=== PATIENT | female | born 1950 | race Caucasian/White ===

== ENCOUNTER 2017-03-01 16:02 | Emergency (ER) | payer OTHER ==
[~2017-03-01] VITALS: Ht 165.1 cm; Wt 81.7 kg
[~2017-03-01 16:02] MED LIST: ALBUAER2 INH; ATEN50TA PO; CYM60 PO; FLUO20CA35 PO; FLUT0.15 NAE; FLUT1INH INH; IBUP-103 PO; IPRASOL4 INH; MISCCAP80 PO; OMEG10007 PO; OXGN; TIOTCAP INH
[2017-03-01 16:04] VITALS: TEMP 36.6; Ht 165.1 cm; Wt 81.7 kg
[2017-03-01] MEDS ORDERED: HYDROCODONE/ACETAMOPHEN 5/325MG TAB PO STA (16:24)
[2017-03-01] MEDS ORDERED: LIDODERM (LIDOCAINE) PATCH 5% TD STA (16:24)
[2017-03-01] MEDS ORDERED: DIAZEPAM 5MG TAB PO ONE (16:30)
[2017-03-01] MEDS ORDERED: SPRIN/30 INH (16:47)
[2017-03-01] MEDS ORDERED: AMOX1TAB43 PO (16:47)
[2017-03-01] MEDS ORDERED: NYSS/ PO (16:47)
[2017-03-01] MEDS ORDERED: CLIN1GEL5 TOP (16:47)
[2017-03-01] MEDS ORDERED: LRS20 PO (16:47)
[2017-03-01] MEDS ORDERED: CYM60 PO (16:47)
[2017-03-01] MEDS ORDERED: ATEN50TA21 PO (16:47)
[2017-03-01] MEDS ORDERED: PROAIR INH (16:47)
[2017-03-01] MEDS ORDERED: ALBINS/ NEB (16:47)
[2017-03-01] MEDS ORDERED: PRED20TA PO (16:47)
[2017-03-01] MEDS ORDERED: CLOB1SHA TOP (16:47)
[2017-03-01] MEDS ORDERED: FLNIN/ NAE (16:47)
[2017-03-01] MEDS ORDERED: CALCTAB7 PO (16:49)
[2017-03-01] MEDS ORDERED: OMEP20CA9 PO (16:49)
[2017-03-01] MEDS ORDERED: CELE1CAP28 PO (16:52)
--- NOTE | 2017-03-01 17:18 | DIAGNOSTIC IMAGING REPORT ---
CT OF THE CERVICAL SPINE CLINICAL HISTORY: Neck pain status post trauma COMPARISON STUDY: No previous studies for comparison. CT DOSE: TECHNIQUE: CT scan of the cervical spine was performed from the skull base to the thoracic inlet. Images are reviewed in the axial, sagittal, and coronal planes. IV contrast was not administered for this examination. A dose lowering technique was utilized adhering to the principles of ALARA. FINDINGS: The visualized portions of the lung apices reveal no evidence of pneumothorax. There is pulmonary emphysema The prevertebral soft tissues are normal. No fractures or subluxations are visualized. There is a developmentally incomplete posterior C1 arch There are multilevel degenerative changes, most pronounced the C4-5 and C5-6 levels. IMPRESSION: No evidence of acute fracture or traumatic subluxation. Electronically signed by: Tomasz Ledesma M.D. 03/01/2017 5:17 PM Dictated Date/Time: 03/01/2017 5:15 PM
--- NOTE | 2017-03-01 17:18 | DIAGNOSTIC IMAGING REPORT ---
CT HEAD WITHOUT CONTRAST (CT) CLINICAL HISTORY: Headache. Closed head injury. COMPARISON STUDY: No previous studies for comparison. TECHNIQUE: Axial CT of the brain is performed from the vertex to the skull base. IV contrast was not administered for this examination. A dose lowering technique was utilized adhering to the principles of ALARA. CT DOSE: 1897.31 mGy.cm FINDINGS: No intra or extra-axial mass lesions are visualized. There is no CT evidence of acute cortical infarction. There is no evidence of midline shift. There is no acute hemorrhage. No calvarial fractures are visualized. There are minor white matter hypodensities likely on a small vessel basis. There is no evidence of pathologic ventricular dilatation. There is no evidence of acute sinusitis IMPRESSION: No acute intracranial findings Electronically signed by: Tomasz Ledesma M.D. 03/01/2017 5:15 PM Dictated Date/Time: 03/01/2017 5:14 PM
--- NOTE | 2017-03-01 17:23 | DIAGNOSTIC IMAGING REPORT ---
CT THORACIC SPINE WITHOUT CT DOSE: CLINICAL HISTORY: Thoracic spine pain status post trauma TECHNIQUE: Helical images were acquired in the transverse plane. Sagittal and coronal reformatted images were acquired. A dose lowering technique was utilized adhering to the principles of ALARA. COMPARISON STUDY: CT angiography of the chest dated 08/08/2015 FINDINGS: There is pulmonary emphysema. No paraspinal hematomas are visualized. No fractures or subluxations are visualized. There is a small T7-8 disc osteophyte complex. IMPRESSION: No fractures or traumatic subluxations identified. Electronically signed by: Tomasz Ledesma M.D. 03/01/2017 5:22 PM Dictated Date/Time: 03/01/2017 5:17 PM
--- NOTE | 2017-03-01 18:02 | DIAGNOSTIC IMAGING REPORT ---
CHEST 2 VIEWS ROUTINE CLINICAL HISTORY: pain, trauma COMPARISON STUDY: 08/08/2015 FINDINGS: The cardiac and mediastinal contours are normal. There is no evidence of focal pulmonary consolidation. There is no evidence of failure. No pleural effusions are visualized.[ There is a right basilar atelectasis/scarring. No pneumothorax is visualized. IMPRESSION: No active disease in the chest. Electronically signed by: Tomasz Ledesma M.D. 03/01/2017 6:00 PM Dictated Date/Time: 03/01/2017 6:00 PM
--- NOTE | 2017-03-01 18:03 | DIAGNOSTIC IMAGING REPORT ---
PELVIS 1 OR 2 VIEW ROUTINE CLINICAL HISTORY: Pelvic pain status post trauma COMPARISON STUDY: No previous studies for comparison. FINDINGS: No fractures or dislocations are visualized. Multiple pelvic basin calcifications, likely represent phleboliths. There is no SI joint diastases. There is no symphysis diastases. There is a small right peritrochanteric calcification. This is likely chronic. IMPRESSION: No acute fractures or dislocations identified. Electronically signed by: Tomasz Ledesma M.D. 03/01/2017 6:01 PM Dictated Date/Time: 03/01/2017 6:01 PM
[2017-03-01] MEDS ORDERED: METHOCARBAMOL 500 MG TAB PO STA (18:42)
--- NOTE | 2017-03-01 18:42 | EMERGENCY ROOM VISIT NOTE ---
History Report prepared by Chauncey: Kemar Modi Under the Supervision of: Dr. Lena Wilcox D.O. First contact with patient: 16:10 Chief Complaint: PAIN (GENERALIZED) Stated Complaint: SEVERE NECK/HEAD/BACK/HIP PAIN History of Present Illness The patient is a 66 year old female who presents to the Emergency Room with complaints of worsening generalized pain that started a week ago. She rates her pain as an 8/10 in severity. The patient states that she was trying to kill a snake a couple weeks ago when she suddenly fell backwards and landed on her back and head. She denies any syncopal episode and reports that she felt fine following the incident until about a week ago. The patient states that she woke up and felt pain in her shoulders bilaterally, neck, base of posterior head, and back causing her to not be able to move. She also states that there has been pain around her left ear that radiates to her jaw and right hip pain whenever she walks. She states that the pain is worsened with movement and turning her head and admits that the pain radiates to her epigastric region. She states she visited her Chiropractor this week for adjustment and visited Dr. Chen for an xray of her neck, but states they both thought it was muscular pain.The patient states that she was given a muscle relaxer for her pain last night, but denies any relief of symptoms. She reports that she is not able to sleep. The patient states that she has been experiencing inflammation to her shoulders for a while and states that she visited her doctor who said it may be a mass or lung expansion. She admits to a history of COPD, arthritis, and calcium deposits in her knee. The patient states that she takes Tramadol, but admits this does not help, and Cymbalta for her depression. The patient denies any shortness of breath, nausea, vomiting, urinary symptoms, bowel movement issues, and tingling sensations. Source of History: patient Onset: a week ago Position: head, neck, shoulder (bilateral), back Symptom Intensity: 8/10 Timing: worsening Modifying Factors (Worsening): movement, other (turning head) Associated Symptoms: + neck pain, + abdominal pain, + back pain, No SOB, No nausea, No vomiting, No urinary symptoms Review of Systems See HPI for pertinent positives & negatives. A total of 10 systems reviewed and were otherwise negative. Past Medical & Surgical Medical Problems: (1) COPD (chronic obstructive pulmonary disease) (2) Depressive disorder (3) Fibromyalgia (4) History of tobacco use (5) Hyperlipidemia (6) Hypertension (7) Lumbar spondylosis (8) Nocturnal hypoxemia (9) Ovarian cyst Surgical Problems: (1) H/O abdominoplasty (2) H/O reduction mammoplasty (3) H/o right knee cyst removal Family History Asthma MOTHER BROTHER FH: CAD (coronary artery disease) MOTHER ([place] age 70) BROTHER ([place] age 44) FH: cerebral aneurysm FATHER FH: suicide BROTHER (age 38) Social History Smoking Status: Former Smoker Drug Use: none Marital Status: in relationship Occupation Status: disabled Current/Historical Medications Scheduled Amoxicillin & Pot Clavulanate (Amoxicillin/Clavulanate P), 1 TAB PO Q12 Atenolol & Chlorthalidone (Tenoretic 50MG/25MG), 0.5 TAB PO DAILY Calcium Carbonate-Vitamin D W/ (Caltrate 600 Plus), 1 TAB PO DAILY Duloxetine HCl (Duloxetine HCl), 60 MG PO DAILY Fluticasone Furoate-Vilanterol (Breo Ellipta), 1 DOSE INH QAM Fluticasone Propionate (Fluticasone Propionate), 2 SPRAYS CHRIS DAILY Home O2 Therapy (Oxygen), 2 LITERS NA HS Methocarbamol (Robaxin), 1 TAB PO TID Nystatin (Nystatin Suspension), 5 ML PO QID Omeprazole (Prilosec), 20 MG PO DAILY Prednisone (Prednisone), 20 MG PO PRN UD Tiotropium Chandler (Spiriva Handihaler), 1 CAP INH DAILY Scheduled PRN Albuterol Sulf (Proventil 0.083% 2.5MG/3ML), 1 VIAL NEB Q4 PRN for SOB/Wheezing Baclofen (Baclofen), 20 MG PO TID PRN for Muscle Spasms Celecoxib (Celecoxib), 200 MG PO DAILY PRN for Pain Clindamycin Phosphate (Topical (Clindamycin Phosphate), 1 APPLN TOP QPM PRN for IRRITATION Clobetasol Propionate (Clobetasol Propionate), 1 APPLN TOP 3XWK PRN for IRRITATION Hydrocodone/Acetaminophen 5MG/325MG (Cornish 5MG/325MG), 1 TABLET PO Q6 PRN for Pain [Proair], 2 PUFF INH Q4 PRN for SOB/Wheezing Allergies Coded Allergies: Ciprofloxacin (Verified Adverse Reaction, Severe, GI SYMPTOMS, 03/01/17) Physical Exam Vital Signs Date Time Temp Pulse Resp B/P (MAP) Pulse Ox O2 Delivery O2 Flow Rate FiO2 03/01/17 20:20 86 16 112/78 93 03/01/17 18:05 63 108/72 92 Room Air 03/01/17 16:04 36.6 76 18 113/81 96 Room Air Physical Exam GENERAL: alert, well appearing, well nourished, no distress, non-toxic EYE EXAM: normal conjunctiva, PERRL and EOM's grossly intact OROPHARYNX: no exudate, no erythema, lips, buccal mucosa, and tongue normal and mucous membranes are moist NECK: supple, no nuchal rigidity, no adenopathy, non-tender LUNGS: decreased. Clear to auscultation. Normal chest wall mechanics HEART: no murmurs, S1 normal and S2 normal ABDOMEN: abdomen soft, non-tender, normo-active bowel sounds, no masses, no rebound or guarding. BACK: Back is symmetrical on inspection and there is no deformity, midline tenderness over thoracic spine, no CVA tenderness. increased hypertonicity to left paraspinal muscles in neck and left trapezius. No evidence of trauma SKIN: no rashes and no bruising UPPER EXTREMITIES: upper extremities are grossly normal. LOWER EXTREMITIES: No pitting edema. No reproducible tenderness at hips. NEURO EXAM: Normal sensorium, cranial nerves II-XII grossly intact, normal speech, no gross weakness of arms, no gross weakness of legs. Gross sensation intact. Normal stead gait. Able to ambulate. Medical Decision & Procedures ER Provider Diagnostic Interpretation: Radiology results have been interpreted by the radiologist and reviewed by me. CT THORACIC SPINE WITHOUT CT DOSE: CLINICAL HISTORY: Thoracic spine pain status post trauma TECHNIQUE: Helical images were acquired in the transverse plane. Sagittal and coronal reformatted images were acquired. A dose lowering technique was utilized adhering to the principles of ALARA. COMPARISON STUDY: CT angiography of the chest dated 08/08/2015 FINDINGS: There is pulmonary emphysema. No paraspinal hematomas are visualized. No fractures or subluxations are visualized. There is a small T7-8 disc osteophyte complex. IMPRESSION: No fractures or traumatic subluxations identified. Electronically signed by: Tomasz Ledesma M.D. 03/01/2017 5:22 PM Dictated Date/Time: 03/01/2017 5:[address] HEAD WITHOUT CONTRAST (CT) CLINICAL HISTORY: Headache. Closed head injury. COMPARISON STUDY: No previous studies for comparison. TECHNIQUE: Axial CT of the brain is performed from the vertex to the skull base. IV contrast was not administered for this examination. A dose lowering technique was utilized adhering to the principles of ALARA. CT DOSE: 1897.31 mGy.cm FINDINGS: No intra or extra-axial mass lesions are visualized. There is no CT evidence of acute cortical infarction. There is no evidence of midline shift. There is no acute hemorrhage. No calvarial fractures are visualized. There are minor white matter hypodensities likely on a small vessel basis. There is no evidence of pathologic ventricular dilatation. There is no evidence of acute sinusitis IMPRESSION: No acute intracranial findings Electronically signed by: Tomasz Ledesma M.D. 03/01/2017 5:15 PM Dictated Date/Time: 03/01/2017 5:[address] OF THE CERVICAL SPINE CLINICAL HISTORY: Neck pain status post trauma COMPARISON STUDY: No previous studies for comparison. CT DOSE: TECHNIQUE: CT scan of the cervical spine was performed from the skull base to the thoracic inlet. Images are reviewed in the axial, sagittal, and coronal planes. IV contrast was not administered for this examination. A dose lowering technique was utilized adhering to the principles of ALARA. FINDINGS: The visualized portions of the lung apices reveal no evidence of pneumothorax. There is pulmonary emphysema The prevertebral soft tissues are normal. No fractures or subluxations are visualized. There is a developmentally incomplete posterior C1 arch There are multilevel degenerative changes, most pronounced the C4-5 and C5-6 levels. IMPRESSION: No evidence of acute fracture or traumatic subluxation. Electronically signed by: Tomasz Ledesma M.D. 03/01/2017 5:17 PM Dictated Date/Time: 03/01/2017 5:15 PM CHEST 2 VIEWS ROUTINE CLINICAL HISTORY: pain, trauma COMPARISON STUDY: 08/08/2015 FINDINGS: The cardiac and mediastinal contours are normal. There is no evidence of focal pulmonary consolidation. There is no evidence of failure. No pleural effusions are visualized.[ There is a right basilar atelectasis/scarring. No pneumothorax is visualized. IMPRESSION: No active disease in the chest. Electronically signed by: Tomasz Ledesma M.D. 03/01/2017 6:00 PM Dictated Date/Time: 03/01/2017 6:00 PM PELVIS 1 OR 2 VIEW ROUTINE CLINICAL HISTORY: Pelvic pain status post trauma COMPARISON STUDY: No previous studies for comparison. FINDINGS: No fractures or dislocations are visualized. Multiple pelvic basin calcifications, likely represent phleboliths. There is no SI joint diastases. There is no symphysis diastases. There is a small right peritrochanteric calcification. This is likely chronic. IMPRESSION: No acute fractures or dislocations identified. Electronically signed by: Tomasz Ledesma M.D. 03/01/2017 6:01 PM Dictated Date/Time: 03/01/2017 6:01 PM Laboratory Results 03/01/17 19:15 Red Blood Count 4.36, Mean Corpuscular Volume 90.8, Mean Corpuscular Hemoglobin 31.2, Mean Corpuscular Hemoglobin Concent 34.3, Mean Platelet Volume 9.1, Neutrophils (%) (Auto) 75.2, Lymphocytes (%) (Auto) 11.0, Monocytes (%) (Auto) 12.4, Eosinophils (%) (Auto) 1.1, Basophils (%) (Auto) 0.3, Neutrophils # (Auto ) 4.59, Lymphocytes # (Auto) 0.67, Monocytes # (Auto) 0.76, Eosinophils # (Auto ) 0.07, Basophils # (Auto) 0.02 03/01/17 19:15 Test 03/01/17 19:15 03/01/17 19:25 White Blood Count 6.11 K/uL (4.8-10.8) Red Blood Count 4.36 M/uL (4.2-5.4) Hemoglobin 13.6 g/dL (12.0-16.0) Hematocrit 39.6 % (37-47) Mean Corpuscular Volume 90.8 fL (80-100) Mean Corpuscular Hemoglobin 31.2 pg (25-34) Mean Corpuscular Hemoglobin Concent 34.3 g/dl (32-36) Platelet Count 291 K/uL (130-400) Mean Platelet Volume 9.1 fL (7.4-10.4) Neutrophils (%) (Auto) 75.2 % Lymphocytes (%) (Auto) 11.0 % Monocytes (%) (Auto) 12.4 % Eosinophils (%) (Auto) 1.1 % Basophils (%) (Auto) 0.3 % Neutrophils # (Auto) 4.59 K/uL (1.4-6.5) Lymphocytes # (Auto) 0.67 K/uL (1.2-3.4) Monocytes # (Auto) 0.76 K/uL (0.11-0.59) Eosinophils # (Auto) 0.07 K/uL (0-0.5) Basophils # (Auto) 0.02 K/uL (0-0.2) RDW Standard Deviation 41.4 fL (36.4-46.3) RDW Coefficient of Variation 12.4 % (11.5-14.5) Immature Granulocyte % (Auto) 0.0 % Immature Granulocyte # (Auto) 0.00 K/uL (0.00-0.02) Anion Gap 6.0 mmol/L (3-11) Est Creatinine Clear Calc Drug Dose 88.4 ml/min Estimated GFR () 106.9 Estimated GFR (Non- 92.2 BUN/Creatinine Ratio 9.0 (10-20) Calcium Level 9.5 mg/dl (8.5-10.1) Total Bilirubin 0.7 mg/dl (0.2-1) Aspartate Amino Transf (AST/SGOT) 17 U/L (15-37) Alanine Aminotransferase (ALT/SGPT) 19 U/L (12-78) Alkaline Phosphatase 149 U/L (45-117) Total Protein 7.0 gm/dl (6.4-8.2) Albumin 3.3 gm/dl (3.4-5.0) Globulin 3.7 gm/dl (2.5-4.0) Albumin/Globulin Ratio 0.9 (0.9-2) Lipase 251 U/L (73-393) Bedside Troponin I < 0.030 ng/ml (0-0.045) Laboratory results per my review. Medications Administered Medications (Trade) Dose Ordered Sig/Patricia Route Start Time Stop Time Status Last Admin Dose Admin Lidocaine (Lidoderm Patch 5%) 1 patch NOW STAT TD 03/01/17 16:24 03/01/17 16:27 DC 03/01/17 17:23 1 PATCH Diazepam (Valium Tab) 5 mg NOW ONCE PO 03/01/17 16:30 03/01/17 16:31 DC 03/01/17 16:34 5 MG Acetaminophen/ Hydrocodone Bitart (Cornish 5/325 Tab) 1 tab NOW STAT PO 03/01/17 16:24 03/01/17 16:27 DC 03/01/17 16:35 1 TAB Methocarbamol (Robaxin Tab) 500 mg NOW STAT PO 03/01/17 18:42 03/01/17 18:43 DC 03/01/17 19:12 500 MG Potassium Chloride (Klor-Con M10) 40 meq NOW STAT PO 03/01/17 19:51 03/01/17 19:52 DC 03/01/17 20:10 40 MEQ Laboratory results per my review. ECG Indication: back/shoulder pain Rate (beats per minute): 62 Rhythm: normal sinus Findings: T-wave inversion (lead three), other (normal axis and interval, Flat to slight T wave inversion in V 2 and 3) Comparison ECG Date: 08/08/15 Change: no significant change ED Course 1613: The patient was evaluated in room C04. A complete history and physical exam was performed. 1624: Cornish 5/325 Tab 1 Tab PO, Lidocaine 1 patch TD. 1630: Valium Tab 5 mg PO. 0: Upon reevaluation, the patient is feeling better. 1954: Upon reevaluation, the patient is feeling better. I discussed the findings and the treatment plan with the patient. She verbalizes agreement and understanding. The patient was discharged home. Medical Decision The differential diagnosis includes but is not limited to: Etiologies such as musculoskeletal, disc herniation, fracture, aortic disease, metastatic disease, cord compression, discitis, infection, renal colic, gastrointestinal, acute exacerbation of chronic back pain, sciatica, cauda equina, as well as others were entertained. Medication Reconciliation: I attest that I have personally reviewed the patient' s current medication list. Blood pressure screening: Patient was found to have a slightly elevated blood pressure due to circumstances. I do not believe that the patient requires hypertension monitoring. Pt well appearing despite complaints, initial concern for occult traumatic injury, no evidence of trauma on imaging. Given some radiation anteriorly, labs and ekg also performed. DOubt aaa/dissection, acs, tamponade, effusion, perforation, pancreatitis, cholecystitis, gi bleed, pneumonia, pneumothorax, PUD , renal colic or stone. Pt improved following meds. Sx have been ongoing for several weeks. No improvement with chiropractic manipulation and meds prescribed by PCP. Pt with some improvement here after meds. Discussed f/u, sx to watch/return for, she verbalized understanding and was agreeable with plan. Impression Primary Impression: Back pain Additional Impressions: Neck pain Hypokalemia Scribe Attestation The scribe's documentation has been prepared under my direction and personally reviewed by me in its entirety. I confirm that the note above accurately reflects all work, treatment, procedures, and medical decision making performed by me. Departure Information Dispostion Home / Self-Care Prescriptions Hydrocodone/Acetaminophen 5MG/325MG (Cornish 5MG/325MG) Tab 1 TABLET PO Q6 Y for Pain, #10 TAB Prov: Lena Wilcox, DO 03/01/17 Methocarbamol (ROBAXIN) 500 Mg Tab 1 TAB PO TID for Muscle Spasms, #20 TAB Prov: Lena Wilcox, DO 03/01/17 Referrals Sukhwinder Littlejohn M.D. (PCP) Forms HOME CARE DOCUMENTATION FORM, IMPORTANT VISIT INFORMATION, WORK / SCHOOL INSTRUCTIONS Patient Instructions My [facility] Additional Instructions Please call and follow-up with your family doctor. If you have any worsening pain, develop fevers, vomiting, dizziness, numbness/tingling, chest pain, abdominal pain, or you have any other new or concerning symptoms, please return to the emergency room. Please take the medications as prescribed. Please drink plenty of water. Please do not take them and drive. Please note that your potassium level was slightly low. This is usually a result of needing to eat more foods with potassium such as bananas or OJ. Please have your family doctor recheck your potassium levels next week. Problem Qualifiers Primary Impression: Back pain Back pain location: thoracic back pain Chronicity: acute Back pain laterality: bilateral Qualified Codes: M54.6 - Pain in thoracic spine
[2017-03-01 19:31] LABS: BASO % 0.3 %; BASO ABS # 0.02 K/uL (0-0.2); COMPLETE YES; EOS % 1.1 %; HEMATOCRIT 39.6 % (37-47); LYMPH ABS # 0.67 K/uL (1.2-3.4); MEAN CELL VOLUME 90.8 fL (80-100); MEAN CORPUSCULAR HEMOGLOBIN 31.2 pg (25-34); MEAN CORPUSCULAR HGB CONC 34.3 g/dl (32-36); MEAN PLATELET VOLUME 9.1 fL (7.4-10.4); MONO % 12.4 %; NEUT % 75.2 %; PLATELET COUNT 291 K/uL (130-400); RED BLOOD COUNT 4.36 M/uL (4.2-5.4); WHITE BLOOD COUNT 6.11 K/uL (4.8-10.8)
[2017-03-01 19:49] LABS: CALCIUM 9.5 mg/dl (8.5-10.1); CREATININE 0.67 mg/dl (0.60-1.20); POTASSIUM 2.7 mmol/L (3.5-5.1)
[2017-03-01] MEDS ORDERED: POTASSIUM CHLORIDE 10 MEQ TABCR PO STA (19:51)
[2017-03-01 19:52] LABS: ALB/GLOB RATIO 0.9 (0.9-2)
[2017-03-01] MEDS ORDERED: HYDR-5688 PO (19:56)
[2017-03-01] MEDS ORDERED: METH500T PO (19:56)
[2017-03-01 20:20] VITALS: BP 112/78; PULSE 86; O2SAT 93
[2017-03-20] MEDS ORDERED: VNCS125 PO (12:20)
[2017-03-20] MEDS ORDERED: ATEN50TA PO (12:20)
[2017-03-20] MEDS ORDERED: FAMO20TA9 PO (12:28)
== END 2017-03-01 20:20 | disposition home or self-care (01) ==
LOC: C.EDB 16:02 → C.EDC 20:20
DX: M54.6 Pain in thoracic spine (principal); M54.2 Cervicalgia; E87.6 Hypokalemia; J44.9 Chronic obstructive pulmonary disease, unspecified; M19.90 Unspecified osteoarthritis, unspecified site; F32.9 Major depressive disorder, single episode, unspecified; M79.7 Fibromyalgia; I10 Essential (primary) hypertension; Z87.891 Personal history of nicotine dependence; Z98.890 Other specified postprocedural states; Z82.5 Family history of asthma and other chronic lower respiratory diseases; Z82.49 Family history of ischemic heart disease and other diseases of the circulatory system; Z81.8 Family history of other mental and behavioral disorders; Z79.899 Other long term (current) drug therapy

== ENCOUNTER 2017-03-15 15:43 | Inpatient (IN) | payer OTHER ==
[~2017-03-15] VITALS: Ht 165.1 cm; Wt 83.4 kg
[~2017-03-15 15:43] MED LIST changes: +ALBINS/ NEB; -ALBUAER2 INH; +AMOX1TAB43 PO; -ATEN50TA PO; +ATEN50TA21 PO; +CALCTAB7 PO; +CELE1CAP28 PO; +CLIN1GEL5 TOP; +CLOB1SHA TOP; +FLNIN/ NAE; -FLUO20CA35 PO; -FLUT0.15 NAE; +HYDR-5688 PO; -IBUP-103 PO; -IPRASOL4 INH; +LRS20 PO; -MISCCAP80 PO; +NYSS/ PO; -OMEG10007 PO; +OMEP20CA9 PO; +PRED20TA PO; +PROAIR INH; +SPRIN/30 INH; -TIOTCAP INH
[2017-03-15] MEDS ORDERED: SODIUM CHLORIDE 0.9% 1000ML 1,000 ML IV STA ×2 (16:08→16:51)
--- NOTE | 2017-03-15 16:26 | EMERGENCY ROOM VISIT NOTE ---
History First contact with patient: 15:55 Chief Complaint: ABNORMAL LABS Stated Complaint: ABNORMAL LABS BY BROWN History of Present Illness The patient is a 66 year old female who presents to the Emergency Room with complaints of abnormal laboratory studies. The patient has had diarrhea for 10 days. She states the diarrhea stopped over the last several days. She has also had ongoing low back pain. She was seen here for the back pain. She has also seen the chiropractor which seemed to help her back pain. She states that 2 days ago she was seen at [facility]. She states they called her today and told her to come to the emergency department secondary to abnormal laboratory studies. Her sodium was reportedly 131, potassium 2.6 and creatinine 1.2. The patient states that she does not feel well overall. She reports pain in the low back which is worse in the left side and worse with movement. She was seen in the emergency department last week for the back pain and treated with pain medication. She denies fevers or chills. She denies any pain in her chest, trouble breathing or cough. She denies any abdominal pain, nausea or vomiting. She states the diarrhea has improved slightly. She denies any melena or hematochezia. She denies any urinary symptoms. She denies any loss of bowel or bladder control, saddle anesthesia, numbness, tingling, weakness or pain in the lower extremities Review of Systems A 10 system review of systems was completed with positives and pertinent negatives listed in the HPI. Past Medical/Surgical History Medical Problems: (1) COPD (chronic obstructive pulmonary disease) (2) Depressive disorder (3) Electrolyte abnormality (4) Fibromyalgia (5) History of tobacco use (6) Hyperlipidemia (7) Hypertension (8) Lumbar spondylosis (9) Nocturnal hypoxemia (10) Ovarian cyst (11) Weakness Surgical Problems: (1) H/O abdominoplasty (2) H/O reduction mammoplasty (3) H/o right knee cyst removal Family History Asthma MOTHER BROTHER FH: CAD (coronary artery disease) MOTHER ([place] age 70) BROTHER ([place] age 44) FH: cerebral aneurysm FATHER FH: suicide BROTHER (age 38) Social History Smoking Status: Former Smoker Drug Use: none Marital Status: in relationship Occupation Status: disabled Current/Historical Medications Scheduled Amoxicillin & Pot Clavulanate (Amoxicillin/Clavulanate P), 1 TAB PO Q12 Atenolol & Chlorthalidone (Tenoretic 50MG/25MG), 0.5 TAB PO DAILY Calcium Carbonate-Vitamin D W/ (Caltrate 600 Plus), 1 TAB PO DAILY Duloxetine HCl (Duloxetine HCl), 60 MG PO DAILY Fluticasone Furoate-Vilanterol (Breo Ellipta), 1 DOSE INH QAM Fluticasone Propionate (Fluticasone Propionate), 2 SPRAYS CHRIS DAILY Home O2 Therapy (Oxygen), 2 LITERS NA HS Nystatin (Nystatin Suspension), 5 ML PO QID Omeprazole (Prilosec), 20 MG PO DAILY Prednisone (Prednisone), 20 MG PO PRN UD Tiotropium [place] (Spiriva Handihaler), 1 CAP INH DAILY Scheduled PRN Baclofen (Baclofen), 20 MG PO TID PRN for Muscle Spasms Celecoxib (Celecoxib), 200 MG PO DAILY PRN for Pain Clindamycin Phosphate (Topical (Clindamycin Phosphate), 1 APPLN TOP QPM PRN for IRRITATION Clobetasol Propionate (Clobetasol Propionate), 1 APPLN TOP 3XWK PRN for IRRITATION Hydrocodone/Acetaminophen 5MG/325MG ([place] 5MG/325MG), 1 TABLET PO Q6 PRN for Pain [Proair], 2 PUFF INH Q4 PRN for SOB/Wheezing Physical Exam Vital Signs Date Time Temp Pulse Resp B/P (MAP) Pulse Ox O2 Delivery O2 Flow Rate FiO2 03/15/17 18:09 74 18 115/80 97 Room Air 03/15/17 17:37 70 18 101/61 92 Room Air 76 102/69 73 109/70 03/15/17 17:33 69 18 109/70 96 Room Air 03/15/17 16:35 71 03/15/17 15:50 36.3 76 20 100/72 95 Room Air Physical Exam VITALS: Vitals are noted on the nurse's note and reviewed by myself. Vital signs stable. The patient is afebrile. GENERAL: This is a 66-year-old female, in no acute distress, nondiaphoretic, well-developed well-nourished. SKIN: The skin was without rashes, erythema, edema, or bruising. There is no tenting of the skin. Capillary reflex less than 2 seconds. HEAD: Normocephalic atraumatic. EARS: The external ears are normal in appearance. EYES: Pupils equal round and reactive to light and accommodation. Conjunctivae without injection, sclerae without icterus. Extraocular movements intact. NOSE: Patent, turbinates without inflammation or discharge. MOUTH: Mucous membranes moist. Tongue does not deviate. NECK: Supple without nuchal rigidity. No lymphadenopathy. No thyromegaly. Cervical spine is nontender. No JVD. HEART: Regular rate and rhythm without murmurs gallops or rubs. LUNGS: Clear to auscultation bilaterally without wheezes, rales or rhonchi. No retractions or accessory muscle use. ABDOMEN: Positive bowel sounds x 4. Soft, nontender, without masses or organomegaly. Smith sign negative. Rectal: There is an external, nonbleeding, nonthrombosed hemorrhoid. The stool is brown but trace guaiac positive. MUSCULOSKELETAL: No muscle atrophy, erythema, or edema noted. Full range of motion without joint tenderness in all extremities. Normal gait. Strength 5/5 throughout. NEURO: Patient was alert and oriented to person place and time. Normal sensation to light and sharp touch. Deep tendon reflexes 2+ in the lower extremities bilaterally.. No focal neurological deficits. Medical Decision & Procedures ER Provider Diagnostic Interpretation: CHEST ONE VIEW PORTABLE HISTORY: diarrhea, hypokalemia COMPARISON: Chest 03/01/2017. FINDINGS: The lungs are clear. Cardiac silhouette is normal in size. No pleural effusions. No pneumothorax. IMPRESSION: No acute process. Laboratory Results 03/15/17 16:15 Red Blood Count 3.88, Mean Corpuscular Volume 89.4, Mean Corpuscular Hemoglobin 31.4, Mean Corpuscular Hemoglobin Concent 35.2, Mean Platelet Volume 8.8, Neutrophils (%) (Auto) 83.8, Lymphocytes (%) (Auto) 5.8, Monocytes (%) (Auto) 9.1, Eosinophils (%) (Auto) 0.3, Basophils (%) (Auto) 0.1, Neutrophils # (Auto) 7.21, Lymphocytes # (Auto) 0.50, Monocytes # (Auto) 0.78, Eosinophils # (Auto) 0.03, Basophils # (Auto) 0.01 03/15/17 16:15 Test 03/15/17 16:15 03/15/17 17:20 03/15/17 18:14 White Blood Count 8.61 K/uL (4.8-10.8) Red Blood Count 3.88 M/uL (4.2-5.4) Hemoglobin 12.2 g/dL (12.0-16.0) Hematocrit 34.7 % (37-47) Mean Corpuscular Volume 89.4 fL (80-100) Mean Corpuscular Hemoglobin 31.4 pg (25-34) Mean Corpuscular Hemoglobin Concent 35.2 g/dl (32-36) Platelet Count 356 K/uL (130-400) Mean Platelet Volume 8.8 fL (7.4-10.4) Neutrophils (%) (Auto) 83.8 % Lymphocytes (%) (Auto) 5.8 % Monocytes (%) (Auto) 9.1 % Eosinophils (%) (Auto) 0.3 % Basophils (%) (Auto) 0.1 % Neutrophils # (Auto) 7.21 K/uL (1.4-6.5) Lymphocytes # (Auto) 0.50 K/uL (1.2-3.4) Monocytes # (Auto) 0.78 K/uL (0.11-0.59) Eosinophils # (Auto) 0.03 K/uL (0-0.5) Basophils # (Auto) 0.01 K/uL (0-0.2) RDW Standard Deviation 39.8 fL (36.4-46.3) RDW Coefficient of Variation 12.4 % (11.5-14.5) Immature Granulocyte % (Auto) 0.9 % Immature Granulocyte # (Auto) 0.08 K/uL (0.00-0.02) Anion Gap 7.0 mmol/L (3-11) Estimated GFR () 95.4 Estimated GFR (Non- 82.3 BUN/Creatinine Ratio 14.1 (10-20) Calcium Level 8.8 mg/dl (8.5-10.1) Magnesium Level 1.5 mg/dl (1.8-2.4) Total Bilirubin 0.3 mg/dl (0.2-1) Aspartate Amino Transf (AST/SGOT) 17 U/L (15-37) Alanine Aminotransferase (ALT/SGPT) 16 U/L (12-78) Alkaline Phosphatase 118 U/L (45-117) Total Creatine Kinase 78 U/L (26-192) Troponin I < 0.015 ng/ml (0-0.045) Total Protein 6.3 gm/dl (6.4-8.2) Albumin 2.6 gm/dl (3.4-5.0) Globulin 3.7 gm/dl (2.5-4.0) Albumin/Globulin Ratio 0.7 (0.9-2) Lipase 356 U/L (73-393) Thyroid Stimulating Hormone (TSH) 1.290 uIu/ml (0.300-4.500) Venous Blood pH 7.46 (7.36-7.41) Venous Blood Partial Pressure CO2 52 mmHg (38.0-50.0) Venous Blood Partial Pressure O2 17 mmHg Venous Blood HCO3 37 mmol/L Venous Blood Oxygen Saturation < 60.0 % Venous Blood Base Excess 11.1 mEq/L Urine Color YELLOW Urine Appearance CLEAR (CLEAR) Urine pH 7.0 (4.5-7.5) Urine Specific [place] 1.008 (1.000-1.030) Urine Protein NEG (NEG) Urine Glucose (UA) NEG (NEG) Urine Ketones NEG (NEG) Urine Occult Blood NEG (NEG) Urine Nitrite NEG (NEG) Urine Bilirubin NEG (NEG) Urine Urobilinogen NEG (NEG) Urine Leukocyte Esterase NEG (NEG) Medications Administered Medications (Trade) Dose Ordered Sig/Patricia Route Start Time Stop Time Status Last Admin Dose Admin Sodium Chloride 1,000 ml @ 999 mls/hr Q1H1M STAT IV 03/15/17 16:08 03/15/17 17:08 DC 03/15/17 16:29 999 MLS/HR Potassium Chloride (Kcl 10 Meq / Wtr) 10 meq NOW STAT IV 03/15/17 16:51 03/15/17 16:52 DC 03/15/17 17:16 10 MEQ Magnesium Sulfate (Magnesium Sulfate) 1 gm NOW STAT IV 03/15/17 16:51 03/15/17 16:52 DC 03/15/17 18:20 1 GM Sodium Chloride 1,000 ml @ 999 mls/hr Q1H1M STAT IV 03/15/17 16:51 03/15/17 17:51 DC 03/15/17 18:20 999 MLS/HR Procedure The patient was monitored on a night monitor. They maintained a normal sinus rhythm without ectopy. ECG Indication: weakness Rate (beats per minute): 70 Rhythm: normal sinus Findings: nonspecific-ST abn, no acute ischemic change Change: no significant change ED Course The patient was seen and examined. Previous visits outside studies were reviewed. The patient does not have a fever or leukocytosis. She does have hypokalemia with potassium 2.6. She has hypomagnesemia with magnesium 1.5. Her bicarbonate is 37 and chloride 93. Her creatinine is within normal limits today at 0.76. Troponin is not elevated. CPK is not elevated. Lipase and TSH are within normal limits. Urinalysis is negative for urinary tract infection, hematuria or ketones. Orthostatic vital signs were negative Stool studies were ordered but the patient was not able to provide a stool sample. EKG does not reveal any peaked T waves or other abnormality She was hydrated with IV normal saline solution 2 L She was given one 10 mEq K rider She was given 1 g IV magnesium The patient presents to the emergency department with electrolyte abnormalities. She has hypomagnesemia, hypokalemia and is symptomatic. The patient has also had ongoing low back pain which seems to be musculoskeletal in nature. She has no neurologic deficit on exam or by history. She has no radiation of the pain. Given the patient's symptoms and electrolyte abnormalities, she would benefit from further evaluation and management in the hospital. [facility] the patient. The patient was also seen and examined by who agrees with the assessment and treatment plan. Medical Decision DIFFERENTIAL DIAGNOSIS: Aortic dissection, myocarditis, pericarditis, cervical disc disease, costochondritis, herpes zoster, rib fracture, pleuritis, pneumonia , pulmonary embolus, tension pneumothorax, anxiety disorder, somatoform disorder , choledocholithiasis, status, esophagitis, esophageal spasm, esophageal reflux , esophageal rupture, pancreatitis, peptic ulcer disease, cardiac ischemia, ST elevation [place], acute coronary syndrome, arrhythmia, coronary artery vasospasm. vavular heart disease, coronary artery disease, among others. Medication Reconcilliation Current Medication List: was personally reviewed by me Blood Pressure Screening Patient's blood pressure: Normal blood pressure Blood pressure disposition: Did not require urgent referral Impression Primary Impression: Hypokalemia Additional Impressions: Hypomagnesemia Low back pain Dehydration Departure Information Referrals Sukhwinder Littlejohn M.D. (PCP) Patient Instructions My [facility] Problem Qualifiers
[2017-03-15 16:27] LABS: HEMATOCRIT 34.7 % (37-47); MEAN CELL VOLUME 89.4 fL (80-100); MEAN CORPUSCULAR HEMOGLOBIN 31.4 pg (25-34); MEAN CORPUSCULAR HGB CONC 35.2 g/dl (32-36); MEAN PLATELET VOLUME 8.8 fL (7.4-10.4); PLATELET COUNT 356 K/uL (130-400); RED BLOOD COUNT 3.88 M/uL (4.2-5.4); WHITE BLOOD COUNT 8.61 K/uL (4.8-10.8)
--- NOTE | 2017-03-15 16:41 | DIAGNOSTIC IMAGING REPORT ---
CHEST ONE VIEW PORTABLE HISTORY: diarrhea, hypokalemia COMPARISON: Chest 03/01/2017. FINDINGS: The lungs are clear. Cardiac silhouette is normal in size. No pleural effusions. No pneumothorax. IMPRESSION: No acute process. Electronically signed by: Nish Quinonez M.D. 03/15/2017 4:39 PM Dictated Date/Time: 03/15/2017 4:38 PM
[2017-03-15 16:44] LABS: ALT/SGPT 16 U/L (12-78); BLOOD UREA NITROGEN 11 mg/dl (7-18); BUN/CREATININE RATIO 14.1 (10-20); CALCIUM 8.8 mg/dl (8.5-10.1); CARBON DIOXIDE 37 mmol/L (21-32); CHLORIDE 93 mmol/L (98-107); CREATININE 0.76 mg/dl (0.60-1.20); GLUCOSE 96 mg/dl (70-99); MAGNESIUM 1.5 mg/dl (1.8-2.4); POTASSIUM 2.6 mmol/L (3.5-5.1); SODIUM 137 mmol/L (136-145)
[2017-03-15] MEDS ORDERED: MAGNESIUM SULFATE 1GM / D5W 1 GM BAG IV STA (16:51)
[2017-03-15] MEDS ORDERED: POTASSIUM CHLORIDE 10 MEQ / 100ML WTR IV STA (16:51)
[2017-03-15 16:55] LABS: ALB/GLOB RATIO 0.7 (0.9-2); ALKALINE PHOSPHATASE 118 U/L (45-117); AST/SGOT 17 U/L (15-37)
[2017-03-15 17:15] LABS: BASO % 0.1 %; BASO ABS # 0.01 K/uL (0-0.2); COMPLETE YES; EOS % 0.3 %; IG% 0.9 %; LYMPH % 5.8 %; MONO % 9.1 %; NEUT % 83.8 %
[2017-03-15 17:28] LABS: VEN BLOOD GAS BASE EXCESS 11.1 mEq/L; VENOUS BLOOD GAS PCO2 52 mmHg (38.0-50.0); VENOUS BLOOD GAS PO2 17 mmHg
[2017-03-15 17:29] LABS: VEN BLD GAS O2 SATURATION < 60.0 %
[2017-03-15 18:28] LABS: URINE APPEARANCE CLEAR (CLEAR); URINE BILIRUBIN NEG (NEG); URINE COLOR YELLOW; URINE NITRITE NEG (NEG); URINE SPECIFIC GRAVITY 1.008 (1.000-1.030); UROBILINOGEN NEG (NEG); ZZUR CULT IF INDIC CLEAN CATCH NO
[2017-03-15 18:32] LABS: MANUAL MICROSCOPIC REQUIRED? NO; REVIEW REQ? NO
[2017-03-15] MEDS ORDERED: POTASSIUM CHLORIDE 10 MEQ TABCR PO STA (18:50)
[2017-03-15] MEDS ORDERED: ONDANSETRON INJ 2 MG/ML 2 ML VIAL IV PRN (19:00)
[2017-03-15] MEDS ORDERED: ACETAMINOPHEN 325 MG TAB PO PRN (19:00)
[2017-03-15] MEDS ORDERED: IV FLUIDS COMPLETED PRN (19:00)
[2017-03-15] MEDS ORDERED: ALBUTEROL HFA 8 GM INHALER INH PRN (19:00)
[2017-03-15] MEDS ORDERED: CeleBREX 200 MG CAP PO PRN (19:00)
[2017-03-15] MEDS ORDERED: POLYETHYLENE (MIRALAX) 17 GM PACK PO PRN (19:00)
[2017-03-15] MEDS ORDERED: BACLOFEN TAB 20 MG TAB PO PRN (19:00)
[2017-03-15 19:50] VITALS: BP 110/74; PULSE 70; TEMP 36.4; O2SAT 92
[2017-03-15] MEDS ORDERED: PATIENT'S HEIGHT AND/OR WEIGHT NEEDED SCH (20:00)
[2017-03-15] MEDS ORDERED: MAGNESIUM SULFATE 1GM / D5W 1 GM in PREMIXED IN D5W 100 ML IV ONE (20:30)
[2017-03-15] MEDS: NYSTATIN SUSP 500,000 U/5 ML UDC PO SCH (21:01)
[2017-03-15] MEDS: TIOTROPIUM BROMIDE 5 PUFF/90 MCG INH INH SCH (21:03)
[2017-03-15 21:05] VITALS: BP 110/74; PULSE 74; TEMP 36.4; O2SAT 92; Ht 165.1 cm; Wt 83.4 kg
[2017-03-15] MEDS: HYDROCODONE/ACETAMOPHEN 5/325MG TAB PO PRN (21:17)
--- NOTE | 2017-03-15 22:11 | History and Physical ---
History & Physical Date & Time of Service: Mar 15, 2017 at 22:00 Chief Complaint: Electrolyte Abnormality, Weakness Primary Care Physician: Sukhwinder Littlejohn M.D. History of Present Illness Source: patient Patient is a 66 yo female who presents to the hospital after being called by outpatient clinic that she had abnormal labs and needed to go to the ER. She states she has been dealing with over a week of severe diarrhea, poor oral intake, nausea and abdominal pain which finally started to improve on Thursday. Also unrelated, the patient has had ongoing back pain for which she was recently seen in the ER and given pain medication for. She states that 2 days ago she was seen at an urgent care center and today they called her and told her to come to the emergency department secondary to abnormal laboratory studies. Per records sodium was 131, potassium 2.6 and creatinine 1.2. Patient states that she has felt malaise, weakness all over and just does not feel well. Her back pain is in the lower back and is worse in the left side and worse with movement. Denies and fevers, chills, sweats, SOLITARIO, CP or SOB. She had some abdominal pain and nausea/vomiting but it resolved. Denies melena or hematochezia. Has only had 1 loose BM since Thursday. Past Medical/Surgical History Medical Problems: (1) COPD (chronic obstructive pulmonary disease) Status: Chronic (2) Depressive disorder Status: Chronic (3) Fibromyalgia Status: Chronic (4) History of tobacco use Status: Chronic (5) Hyperlipidemia Status: Chronic (6) Hypertension Status: Chronic (7) Lumbar spondylosis Status: Chronic (8) Nocturnal hypoxemia Status: Chronic (9) Ovarian cyst Status: Chronic Surgical Problems: (1) H/O abdominoplasty Status: Chronic (2) H/O reduction mammoplasty Status: Chronic (3) H/o right knee cyst removal Status: Chronic Family History Asthma MOTHER BROTHER FH: CAD (coronary artery disease) MOTHER ([place] age 70) BROTHER ([place] age 44) FH: cerebral aneurysm FATHER FH: suicide BROTHER (age 38) Social History Smoking Status: Former Smoker Drug Use: none Marital Status: in relationship Occupational Status: disabled Immunizations History of Influenza Vaccine: Yes Influenza Vaccine Date: Jun 11, 2011 History of Tetanus Vaccine?: Yes Tetanus Immunization Date: Aug 10, 2005 History of Pneumococcal: Yes Pneumococcal Date: Jul 25, 2009 History of Hepatitis B Vaccine: No Multi-Drug Resistant Organisms History of MDRO: No Allergies Coded Allergies: Ciprofloxacin (Verified Adverse Reaction, Severe, GI SYMPTOMS, 03/01/17) Home Medications Scheduled Amoxicillin & Pot Clavulanate (Amoxicillin/Clavulanate P), 1 TAB PO Q12 Atenolol & Chlorthalidone (Tenoretic 50MG/25MG), 0.5 TAB PO DAILY Calcium Carbonate-Vitamin D W/ (Caltrate 600 Plus), 1 TAB PO DAILY Duloxetine HCl (Duloxetine HCl), 60 MG PO DAILY Fluticasone Furoate-Vilanterol (Breo Ellipta), 1 DOSE INH QAM Fluticasone Propionate (Fluticasone Propionate), 2 SPRAYS CHRIS DAILY Home O2 Therapy (Oxygen), 2 LITERS NA HS Nystatin (Nystatin Suspension), 5 ML PO QID Omeprazole (Prilosec), 20 MG PO DAILY Prednisone (Prednisone), 20 MG PO PRN UD Tiotropium [place] (Spiriva Handihaler), 1 CAP INH DAILY Scheduled PRN Baclofen (Baclofen), 20 MG PO TID PRN for Muscle Spasms Celecoxib (Celecoxib), 200 MG PO DAILY PRN for Pain Clindamycin Phosphate (Topical (Clindamycin Phosphate), 1 APPLN TOP QPM PRN for IRRITATION Clobetasol Propionate (Clobetasol Propionate), 1 APPLN TOP 3XWK PRN for IRRITATION Hydrocodone/Acetaminophen 5MG/325MG ([place] 5MG/325MG), 1 TABLET PO Q6 PRN for Pain [Proair], 2 PUFF INH Q4 PRN for SOB/Wheezing Review of Systems Constitutional: + weakness, + fatigue, No fever, No chills, No sweats Eyes: No worsening of vision, No eye pain, No discharge, No diplopia ENT: No hearing loss, No nasal symptoms, No sore throat, No dental problems, No trouble swallowing Respiratory: No cough, No shortness of breath, No dyspnea on exertion, No hemoptysis Cardiovascular: No chest pain, No edema, No claudication, No palpitations Abdomen: + pain, + nausea, + diarrhea, No GI bleeding Musculoskeletal: + joint pain, No muscle pain, No swelling Genitourinary - Female: No dysuria, No urinary frequency, No urinary urgency, No urinary incontinence, No urinary retention Neurologic: No memory loss, No paralysis, No numbness/tingling, No vertigo Psychiatric: No depression symptoms, No anxiety, No insomnia, No substance abuse Endocrine: No problem reported Hematologic / Lymphatic: No problem reported Integumentary: No rash, No itch, No bleeding, No problem reported Physical Exam Vital Signs Date Time Temp Pulse Resp B/P (MAP) Pulse Ox O2 Delivery O2 Flow Rate FiO2 03/15/17 21:05 36.4 74 18 110/74 92 Room Air 03/15/17 19:50 36.4 70 18 110/74 (86) 92 Room Air 03/15/17 19:18 69 18 96/61 97 Room Air 03/15/17 18:09 74 18 115/80 97 Room Air 03/15/17 17:37 70 18 101/61 92 Room Air 76 102/69 73 109/70 03/15/17 17:33 69 18 109/70 96 Room Air 03/15/17 16:35 71 03/15/17 15:50 36.3 76 20 100/72 95 Room Air General Appearance: WD/WN, no apparent distress Head: normocephalic, atraumatic Eyes: PERRL, EOMI ENT: hearing grossly normal Neck: supple, no JVD, no carotid bruits, trachea midline Respiratory/Chest: chest non-tender, lungs clear, normal breath sounds, no respiratory distress Cardiovascular: regular rate, rhythm, no edema, no gallop, no JVD, no murmur Abdomen/GI: normal bowel sounds, non tender, soft, no organomegaly Back: + decreased range of motion, + paravertebral tenderness Extremities/Musculoskelatal: no calf tenderness, normal capillary refill, no pedal edema Neurologic/Psych: no motor/sensory deficits, alert, normal mood/affect, oriented x 3 Skin: normal color, warm/dry, no rash Diagnostics Laboratory Results Results Past 24 Hours Test 03/15/17 16:15 03/15/17 17:20 03/15/17 18:14 Range/Units White Blood Count 8.61 4.8-10.8 K/uL Red Blood Count 3.88 4.2-5.4 M/uL Hemoglobin 12.2 12.0-16.0 g/dL Hematocrit 34.7 37-47 % Mean Corpuscular Volume 89.4 80-100 fL Mean Corpuscular Hemoglobin 31.4 25-34 pg Mean Corpuscular Hemoglobin Concent 35.2 32-36 g/dl Platelet Count 356 130-400 K/uL Mean Platelet Volume 8.8 7.4-10.4 fL Neutrophils (%) (Auto) 83.8 % Lymphocytes (%) (Auto) 5.8 % Monocytes (%) (Auto) 9.1 % Eosinophils (%) (Auto) 0.3 % Basophils (%) (Auto) 0.1 % Neutrophils # (Auto) 7.21 1.4-6.5 K/uL Lymphocytes # (Auto) 0.50 1.2-3.4 K/uL Monocytes # (Auto) 0.78 0.11-0.59 K/uL Eosinophils # (Auto) 0.03 0-0.5 K/uL Basophils # (Auto) 0.01 0-0.2 K/uL RDW Standard Deviation 39.8 36.4-46.3 fL RDW Coefficient of Variation 12.4 11.5-14.5 % Immature Granulocyte % (Auto) 0.9 % Immature Granulocyte # (Auto) 0.08 0.00-0.02 K/uL Sodium Level 137 136-145 mmol/L Potassium Level 2.6 3.5-5.1 mmol/L Chloride Level 93 98-107 mmol/L Carbon Dioxide Level 37 21-32 mmol/L Anion Gap 7.0 3-11 mmol/L Blood Urea Nitrogen 11 7-18 mg/dl Creatinine 0.76 0.60-1.20 mg/dl Estimated GFR () 95.4 Estimated GFR (Non- 82.3 BUN/Creatinine Ratio 14.1 10-20 Random Glucose 96 70-99 mg/dl Calcium Level 8.8 8.5-10.1 mg/dl Magnesium Level 1.5 1.8-2.4 mg/dl Total Bilirubin 0.3 0.2-1 mg/dl Aspartate Amino Transf (AST/SGOT) 17 15-37 U/L Alanine Aminotransferase (ALT/SGPT) 16 12-78 U/L Alkaline Phosphatase 118 45-117 U/L Total Creatine Kinase 78 26-192 U/L Troponin I < 0.015 0-0.045 ng/ml Total Protein 6.3 6.4-8.2 gm/dl Albumin 2.6 3.4-5.0 gm/dl Globulin 3.7 2.5-4.0 gm/dl Albumin/Globulin Ratio 0.7 0.9-2 Lipase 356 73-393 U/L Thyroid Stimulating Hormone (TSH) 1.290 0.300-4.500 uIu/ml Venous Blood pH 7.46 7.36-7.41 Venous Blood Partial Pressure CO2 52 38.0-50.0 mmHg Venous Blood Partial Pressure O2 17 mmHg Venous Blood HCO3 37 mmol/L Venous Blood Oxygen Saturation < 60.0 % Venous Blood Base Excess 11.1 mEq/L Urine Color YELLOW Urine Appearance CLEAR CLEAR Urine pH 7.0 4.5-7.5 Urine Specific [place] 1.008 1.000-1.030 Urine Protein NEG NEG Urine Glucose (UA) NEG NEG Urine Ketones NEG NEG Urine Occult Blood NEG NEG Urine Nitrite NEG NEG Urine Bilirubin NEG NEG Urine Urobilinogen NEG NEG Urine Leukocyte Esterase NEG NEG Impression Assessment and Plan Electrolyte derangements: -likely the result of close to 10 days of diarrhea, now resolving -magnesium and potassium low; will replete and recheck -monitor in telemetry Diarrhea: -now improved, but should it recur would check stool culture and c diff -most likely viral COPD: -stable, not in exacerbation -continue home meds -continue oxygen HTN: -stable -monitor and titrate -continue atenolol Depression: -continue Cymbalta GERD: -continue Prilosec Level of Care Telemetry Advanced Directives Existing Living Will: No Existing Power of Mophead Trimmer And Wrapper: No Resuscitation Status FULL RESUSCITATION VTE Prophylaxis VTE Risk Assessment Done? Y/N: Yes Risk Level: Moderate
[2017-03-15] MEDS: BREO ELLIPTA - ORDER AWAITING ACTION SCH (23:05)
[2017-03-15 23:53] VITALS: BP 94/60; PULSE 71; TEMP 36.9; O2SAT 96
[2017-03-16 04:40] VITALS: BP 90/60; PULSE 76; TEMP 36.9; O2SAT 98
[2017-03-16 07:05] LABS: HEMATOCRIT 32.5 % (37-47); MEAN CELL VOLUME 90.3 fL (80-100); MEAN CORPUSCULAR HEMOGLOBIN 31.1 pg (25-34); MEAN CORPUSCULAR HGB CONC 34.5 g/dl (32-36); MEAN PLATELET VOLUME 8.7 fL (7.4-10.4); PLATELET COUNT 362 K/uL (130-400); WHITE BLOOD COUNT 4.39 K/uL (4.8-10.8)
[2017-03-16 07:11] VITALS: BP 92/61; PULSE 63; TEMP 37; O2SAT 97
[2017-03-16 07:15] LABS: PARTIAL THROMBOPLASTIN RATIO 1.2; PROTHROMBIN TIME (PATIENT) 10.6 SECONDS (9.0-12.0)
[2017-03-16 07:22] LABS: BUN/CREATININE RATIO 11.9 (10-20); CALCIUM 8.5 mg/dl (8.5-10.1); CREATININE 0.53 mg/dl (0.60-1.20); POTASSIUM 2.9 mmol/L (3.5-5.1)
[2017-03-16] MEDS: BREO ELLIPTA - ORDER AWAITING ACTION SCH ×3 (07:45→23:48)
[2017-03-16] MEDS: CALCIUM 600MG + VIT D 400 IU TAB PO SCH (07:49)
[2017-03-16] MEDS: NYSTATIN SUSP 500,000 U/5 ML UDC PO SCH ×4 (07:49→20:55)
[2017-03-16] MEDS: POTASSIUM CHLORIDE 20 MEQ TABCR PO SCH (07:49)
[2017-03-16] MEDS: DULOXETINE HCL 60 MG CAP PO SCH (07:49)
[2017-03-16] MEDS: TIOTROPIUM BROMIDE 5 PUFF/90 MCG INH INH SCH (07:50)
[2017-03-16] MEDS: FLUTICASONE PROPIONATE NA SPR 16 GM BTL NAE SCH (07:50)
[2017-03-16] MEDS: ENOXAPARIN 30 MG/0.3 ML SYR SC SCH (08:27)
[2017-03-16] MEDS ORDERED: PANTOprazole SOD 40 MG TAB PO SCH (09:00)
[2017-03-16] MEDS ORDERED: POTASSIUM CHLORIDE 20 MEQ TABCR PO ONE (09:30)
[2017-03-16 09:34] VITALS: BP 111/71; PULSE 71
[2017-03-16] MEDS: POTASSIUM CHLR 10 MEQ / WTR 10 MEQ in PREMIXED WATER 100 ML IV SCH ×4 (09:58→13:21)
[2017-03-16] MEDS: CHLORTHALIDONE 25 MG TAB PO SCH (09:58)
--- NOTE | 2017-03-16 13:02 | EMERGENCY ROOM VISIT NOTE ---
ED Visit Note First contact with patient: 15:55 HPI: Diarrhea and dehydration. AFVSS, NAD Plan: Admit for hydration and electrolyte repletion. I reviewed the patient's past medical history, medications, and visit nursing notes. I discussed the case with the physician orthodontic technician assistant, saw the patient, and agree with the findings and plan as documented in the physician assistants note. Problem List Medical Problems: (1) COPD (chronic obstructive pulmonary disease) Status: Chronic (2) Depressive disorder Status: Chronic (3) Fibromyalgia Status: Chronic (4) History of tobacco use Status: Chronic (5) Hyperlipidemia Status: Chronic (6) Hypertension Status: Chronic (7) Lumbar spondylosis Status: Chronic (8) Nocturnal hypoxemia Status: Chronic (9) Ovarian cyst Status: Chronic Surgical Problems: (1) H/O abdominoplasty Status: Chronic (2) H/O reduction mammoplasty Status: Chronic (3) H/o right knee cyst removal Status: Chronic Current/Historical Medications Scheduled Amoxicillin & Pot Clavulanate (Amoxicillin/Clavulanate P), 1 TAB PO Q12 Atenolol & Chlorthalidone (Tenoretic 50MG/25MG), 0.5 TAB PO DAILY Calcium Carbonate-Vitamin D W/ (Caltrate 600 Plus), 1 TAB PO DAILY Duloxetine HCl (Duloxetine HCl), 60 MG PO DAILY Fluticasone Furoate-Vilanterol (Breo Ellipta), 1 DOSE INH QAM Fluticasone Propionate (Fluticasone Propionate), 2 SPRAYS CHRIS DAILY Home O2 Therapy (Oxygen), 2 LITERS NA HS Nystatin (Nystatin Suspension), 5 ML PO QID Omeprazole (Prilosec), 20 MG PO DAILY Prednisone (Prednisone), 20 MG PO PRN UD Tiotropium [place] (Spiriva Handihaler), 1 CAP INH DAILY Scheduled PRN Baclofen (Baclofen), 20 MG PO TID PRN for Muscle Spasms Celecoxib (Celecoxib), 200 MG PO DAILY PRN for Pain Clindamycin Phosphate (Topical (Clindamycin Phosphate), 1 APPLN TOP QPM PRN for IRRITATION Clobetasol Propionate (Clobetasol Propionate), 1 APPLN TOP 3XWK PRN for IRRITATION Hydrocodone/Acetaminophen 5MG/325MG ([place] 5MG/325MG), 1 TABLET PO Q6 PRN for Pain [Proair], 2 PUFF INH Q4 PRN for SOB/Wheezing Allergies Coded Allergies: Ciprofloxacin (Verified Adverse Reaction, Severe, GI SYMPTOMS, 03/01/17) Vital Signs Date Time Temp Pulse Resp B/P (MAP) Pulse Ox O2 Delivery O2 Flow Rate FiO2 03/15/17 18:09 74 18 115/80 97 Room Air 03/15/17 17:37 70 18 101/61 92 Room Air 76 102/69 73 109/70 03/15/17 17:33 69 18 109/70 96 Room Air 03/15/17 16:35 71 03/15/17 15:50 36.3 76 20 100/72 95 Room Air Laboratory Results Test 03/15/17 16:15 03/15/17 17:20 03/15/17 18:14 Immature Granulocyte % (Auto) 0.9 % White Blood Count 8.61 K/uL (4.8-10.8) Red Blood Count 3.88 M/uL (4.2-5.4) Hemoglobin 12.2 g/dL (12.0-16.0) Hematocrit 34.7 % (37-47) Mean Corpuscular Volume 89.4 fL (80-100) Mean Corpuscular Hemoglobin 31.4 pg (25-34) Mean Corpuscular Hemoglobin Concent 35.2 g/dl (32-36) Platelet Count 356 K/uL (130-400) Mean Platelet Volume 8.8 fL (7.4-10.4) Neutrophils (%) (Auto) 83.8 % Lymphocytes (%) (Auto) 5.8 % Monocytes (%) (Auto) 9.1 % Eosinophils (%) (Auto) 0.3 % Basophils (%) (Auto) 0.1 % Neutrophils # (Auto) 7.21 K/uL (1.4-6.5) Lymphocytes # (Auto) 0.50 K/uL (1.2-3.4) Monocytes # (Auto) 0.78 K/uL (0.11-0.59) Eosinophils # (Auto) 0.03 K/uL (0-0.5) Basophils # (Auto) 0.01 K/uL (0-0.2) Immature Granulocyte # (Auto) 0.08 K/uL (0.00-0.02) Total Bilirubin 0.3 mg/dl (0.2-1) Aspartate Amino Transf (AST/SGOT) 17 U/L (15-37) Alanine Aminotransferase (ALT/SGPT) 16 U/L (12-78) Alkaline Phosphatase 118 U/L (45-117) Total Creatine Kinase 78 U/L (26-192) Troponin I < 0.015 ng/ml (0-0.045) Total Protein 6.3 gm/dl (6.4-8.2) Albumin 2.6 gm/dl (3.4-5.0) Globulin 3.7 gm/dl (2.5-4.0) Albumin/Globulin Ratio 0.7 (0.9-2) Lipase 356 U/L (73-393) Thyroid Stimulating Hormone (TSH) 1.290 uIu/ml (0.300-4.500) Venous Blood pH 7.46 (7.36-7.41) Venous Blood Partial Pressure CO2 52 mmHg (38.0-50.0) Venous Blood Partial Pressure O2 17 mmHg Venous Blood HCO3 37 mmol/L Venous Blood Oxygen Saturation < 60.0 % Venous Blood Base Excess 11.1 mEq/L Urine Color YELLOW Urine Appearance CLEAR (CLEAR) Urine pH 7.0 (4.5-7.5) Urine Specific [place] 1.008 (1.000-1.030) Urine Protein NEG (NEG) Urine Glucose (UA) NEG (NEG) Urine Ketones NEG (NEG) Urine Occult Blood NEG (NEG) Urine Nitrite NEG (NEG) Urine Bilirubin NEG (NEG) Urine Urobilinogen NEG (NEG) Urine Leukocyte Esterase NEG (NEG) Medications Administered Medications (Trade) Dose Ordered Sig/Patricia Route Start Time Stop Time Status Last Admin Dose Admin Sodium Chloride 1,000 ml @ 999 mls/hr Q1H1M STAT IV 03/15/17 16:08 03/15/17 17:08 DC 03/15/17 16:29 999 MLS/HR Potassium Chloride (Kcl 10 Meq / Wtr) 10 meq NOW STAT IV 03/15/17 16:51 03/15/17 16:52 DC 03/15/17 17:16 10 MEQ Magnesium Sulfate (Magnesium Sulfate) 1 gm NOW STAT IV 03/15/17 16:51 03/15/17 16:52 DC 03/15/17 18:20 1 GM Sodium Chloride 1,000 ml @ 999 mls/hr Q1H1M STAT IV 03/15/17 16:51 03/15/17 17:51 DC 03/15/17 18:20 999 MLS/HR Departure Information Impression Primary Impression: Hypokalemia Additional Impressions: Low back pain Dehydration Hypomagnesemia Dispostion Still a Patient Condition FAIR Referrals Sukhwinder Littlejohn M.D. (PCP) Forms WORK / SCHOOL INSTRUCTIONS, HOME CARE DOCUMENTATION FORM, IMPORTANT VISIT INFORMATION Patient Instructions [facility] Problem Qualifiers
[2017-03-16 14:50] VITALS: BP 90/60; PULSE 70; TEMP 37; O2SAT 95
[2017-03-16] MEDS: RASPBERRY SYRUP 5 ML UDP PO SCH ×2 (16:45→20:55)
[2017-03-16] MEDS: VANCOMYCIN HCL 125 MG/2.5ML SOLN PO SCH ×2 (16:45→20:55)
[2017-03-16 20:25] VITALS: BP 103/68; PULSE 70; TEMP 36.9; O2SAT 98
--- NOTE | 2017-03-16 22:32 | Progress Note ---
Medicine Progress Note Date & Time of Visit: Mar 16, 2017 at 0900. Subjective 66 yo F with 8 days of diarrhea presents for low potassium on outpatient bloodwork. She reports that 1.5 weeks ago she developed some diarrhea, and doesn't believe it was a food borne illness. A couple of days later, she went to the ER for acute on chronic back pain which is typically managed by a chiropractor. She came home and the diarrhea persisted. Her potassium had been low and she was given some supplementation. She took this and went to her PCP for follow-up where her K appeared normal. She went home and persistently had more diarrhea so ended up at a [facility] where she was found to have significantly low K and was advised to go to the ER. -currently feels improved with the diarrhea reportedly resolved prior to the weekedn (3 dys ago). She denies any vomiting, and is currently tolerating PO. -abdominal pain has improved per patient -denies UTI symptoms , fevers, or chills. Objective Last 8 Hrs Date Time Temp Pulse Resp B/P (MAP) Pulse Ox O2 Delivery O2 Flow Rate FiO2 03/16/17 20:25 36.9 70 20 103/68 (80) 98 Room Air 03/16/17 16:00 Room Air 03/16/17 14:50 37.0 70 18 90/60 (70) 95 Room Air Physical Exam: GEN: WNWD, in no acute distress, alert and appropriate HEENT: NC/AT, PERRL, normal sclerae, MMM CARDIO: reg rate, S1/2 heard without m/g/r LUNGS: CTA bilaterally, no crackles, rales or wheezes, good diaphragmatic excursion ABD: soft, non-tender, non-distended, no rebound or guarding, +BS EXTREMITY: RP and DP palpable 2+ bilat, no LE swelling or edema, extremities are warm and well-perfused NEURO: CN 2-12 grossly intact MUSC: 5/5 strength throughout, no focal deficits SKIN: warm and dry Laboratory Results: 03/16/17 06:30 03/16/17 06:30 Test 03/15/17 16:15 03/15/17 17:20 03/15/17 18:14 03/16/17 06:30 Immature Granulocyte % (Auto) 0.9 % White Blood Count 8.61 K/uL (4.8-10.8) Red Blood Count 3.88 M/uL (4.2-5.4) 3.60 M/uL (4.2-5.4) Hemoglobin 12.2 g/dL (12.0-16.0) Hematocrit 34.7 % (37-47) Mean Corpuscular Volume 89.4 fL (80-100) 90.3 fL (80-100) Mean Corpuscular Hemoglobin 31.4 pg (25-34) 31.1 pg (25-34) Mean Corpuscular Hemoglobin Concent 35.2 g/dl (32-36) 34.5 g/dl (32-36) Platelet Count 356 K/uL (130-400) Mean Platelet Volume 8.8 fL (7.4-10.4) 8.7 fL (7.4-10.4) Neutrophils (%) (Auto) 83.8 % Lymphocytes (%) (Auto) 5.8 % Monocytes (%) (Auto) 9.1 % Eosinophils (%) (Auto) 0.3 % Basophils (%) (Auto) 0.1 % Neutrophils # (Auto) 7.21 K/uL (1.4-6.5) Lymphocytes # (Auto) 0.50 K/uL (1.2-3.4) Monocytes # (Auto) 0.78 K/uL (0.11-0.59) Eosinophils # (Auto) 0.03 K/uL (0-0.5) Basophils # (Auto) 0.01 K/uL (0-0.2) Immature Granulocyte # (Auto) 0.08 K/uL (0.00-0.02) Total Bilirubin 0.3 mg/dl (0.2-1) Aspartate Amino Transf (AST/SGOT) 17 U/L (15-37) Alanine Aminotransferase (ALT/SGPT) 16 U/L (12-78) Alkaline Phosphatase 118 U/L (45-117) Total Creatine Kinase 78 U/L (26-192) Troponin I < 0.015 ng/ml (0-0.045) Total Protein 6.3 gm/dl (6.4-8.2) Albumin 2.6 gm/dl (3.4-5.0) Globulin 3.7 gm/dl (2.5-4.0) Albumin/Globulin Ratio 0.7 (0.9-2) Lipase 356 U/L (73-393) Thyroid Stimulating Hormone (TSH) 1.290 uIu/ml (0.300-4.500) Venous Blood pH 7.46 (7.36-7.41) Venous Blood Partial Pressure CO2 52 mmHg (38.0-50.0) Venous Blood Partial Pressure O2 17 mmHg Venous Blood HCO3 37 mmol/L Venous Blood Oxygen Saturation < 60.0 % Venous Blood Base Excess 11.1 mEq/L Urine Color YELLOW Urine Appearance CLEAR (CLEAR) Urine pH 7.0 (4.5-7.5) Urine Specific [place] 1.008 (1.000-1.030) Urine Protein NEG (NEG) Urine Glucose (UA) NEG (NEG) Urine Ketones NEG (NEG) Urine Occult Blood NEG (NEG) Urine Nitrite NEG (NEG) Urine Bilirubin NEG (NEG) Urine Urobilinogen NEG (NEG) Urine Leukocyte Esterase NEG (NEG) RDW Standard Deviation 40.8 fL (36.4-46.3) RDW Coefficient of Variation 12.3 % (11.5-14.5) Prothrombin Time 10.6 SECONDS (9.0-12.0) Prothromb Time International Ratio 1.0 (0.9-1.1) Activated Partial Thromboplast Time 31.7 SECONDS (21.0-31.0) Partial Thromboplastin Ratio 1.2 Anion Gap 2.0 mmol/L (3-11) Est Creatinine Clear Calc Drug Dose 112.0 ml/min Estimated GFR () 115.5 Estimated GFR (Non- 99.6 BUN/Creatinine Ratio 11.9 (10-20) Calcium Level 8.5 mg/dl (8.5-10.1) Magnesium Level 2.0 mg/dl (1.8-2.4) Date/Time Source Procedure Growth Status 03/16/17 00:00 Stool C.difficile Toxin B Gene (PCR) - Final Positive for C. difficile toxin B gene Complete Last 24 Hours Test 03/16/17 06:30 White Blood Count 4.39 K/uL Red Blood Count 3.60 M/uL Hemoglobin 11.2 g/dL Hematocrit 32.5 % Mean Corpuscular Volume 90.3 fL Mean Corpuscular Hemoglobin 31.1 pg Mean Corpuscular Hemoglobin Concent 34.5 g/dl RDW Standard Deviation 40.8 fL RDW Coefficient of Variation 12.3 % Platelet Count 362 K/uL Mean Platelet Volume 8.7 fL Prothrombin Time 10.6 SECONDS Prothromb Time International Ratio 1.0 Activated Partial Thromboplast Time 31.7 SECONDS Partial Thromboplastin Ratio 1.2 Sodium Level 140 mmol/L Potassium Level 2.9 mmol/L Chloride Level 101 mmol/L Carbon Dioxide Level 37 mmol/L Anion Gap 2.0 mmol/L Blood Urea Nitrogen 6 mg/dl Creatinine 0.53 mg/dl Est Creatinine Clear Calc Drug Dose 112.0 ml/min Estimated GFR () 115.5 Estimated GFR (Non- 99.6 BUN/Creatinine Ratio 11.9 Random Glucose 87 mg/dl Calcium Level 8.5 mg/dl Magnesium Level 2.0 mg/dl Date/Time Source Procedure Growth Status 03/16/17 00:00 Stool C.difficile Toxin B Gene (PCR) - Final Positive for C. difficile toxin B gene Complete Assessment & Plan 66 yo F with 8 days of diarrhea presents for low potassium on outpatient bloodwork 1. Hypokalemia and hypomagnesemia 2/2 diarrhea--replace IV/PO. Diarrhea stopped 3 days ago with one soft stool yesterday. Abdominal pain is starting to improve and she is feeling better. 2. Diarrhea 2/2 c-diff-she denies any recent antibiotic usage. No others were sick around her. No h/o c-diff in the past. Diarrhea has resolved at this point. Vanc PO was started today and will cont for 10 days. 3. COPD-stable, cont home inhalers. Cont supplemental oxygen. Advised to bring Breo in from home as not on formulary. 4. HTN-at goal, cont home meds. Noted that she is on chlorthalidone which may contribute to hypokalemia. However, feel this is 2/2 acute persistent diarrhea , and will cont chlorthalidone at this time. 5. Depression-somewhat tearful but appears in control, cont Cymbalta 6. GERD-stop prilosec as may cause c-diff associate diarrhea. DVT proph-Lovenox Full Code Dispo-likely to home in 1-2 days. Amaris Parmar DO [facility] Hospitalist Current Inpatient Medications: Current Inpatient Medications Medications (Trade) Dose Ordered Sig/Patricia Route Start Time Stop Time Status Last Admin Dose Admin Enoxaparin Sodium (Lovenox Inj) 30 mg Q24H SC 03/16/17 08:00 04/15/17 07:59 03/16/17 08:27 30 MG Acetaminophen (Tylenol Tab) 650 mg Q4H PRN PO 03/15/17 19:00 04/14/17 18:59 Ondansetron HCl (Zofran Inj) 4 mg Q6H PRN IV 03/15/17 19:00 04/14/17 18:59 Polyethylene (Miralax Powder Packet) 17 gm DAILY PRN PO 03/15/17 19:00 04/14/17 18:59 Potassium Chloride (Klor-Con Tab) 20 meq QAM PO 03/16/17 09:00 04/15/17 08:59 03/16/17 07:49 20 MEQ Miscellaneous (Iv Fluids Completed) 1 ea PRN PRN N/A 03/15/17 19:00 03/15/18 18:59 Baclofen (Lioresal Tab) 20 mg TID PRN PO 03/15/17 19:00 04/14/17 18:59 Calcium/Vitamin D (Caltrate Plus Tab) 1 tab DAILY PO 03/16/17 09:00 04/15/17 08:59 03/16/17 07:49 1 TAB Celecoxib (CeleBREX CAP) 200 mg DAILY PRN PO 03/15/17 19:00 04/14/17 18:59 Duloxetine HCl (Cymbalta Cap) 60 mg DAILY PO 03/16/17 09:00 04/15/17 08:59 03/16/17 07:49 60 MG Fluticasone Propionate (Flonase Nasal [place]) 2 sprays DAILY CHRIS 03/16/17 09:00 04/15/17 08:59 03/16/17 07:50 2 SPRAYS Acetaminophen/ Hydrocodone Bitart ([place] 5/325 Tab) 1 tab Q6 PRN PO 03/15/17 19:00 03/29/17 18:59 03/15/17 21:17 1 TAB Nystatin (Mycostatin Susp) 5 ml QID PO 03/15/17 21:00 03/25/17 20:59 03/16/17 20:55 5 ML Tiotropium [place] (Spiriva Handihaler Inhaler) 1 puff DAILY INH 03/16/17 09:00 04/15/17 08:59 03/16/17 07:50 1 PUFF Atenolol (Tenormin Tab) 25 mg QAM PO 03/16/17 09:00 04/15/17 08:59 03/16/17 09:38 25 MG Miscellaneous Information (Order Awaiting Action) 1 ea QS N/A 03/16/17 00:00 04/15/17 00:00 Pantoprazole Sodium (Protonix Tab) 40 mg QAM PO 03/16/17 09:00 04/15/17 08:59 03/16/17 07:49 40 MG Albuterol (Ventolin Hfa Inhaler) 2 puffs Q4 PRN INH 03/15/17 19:00 04/14/17 18:59 Chlorthalidone (Hygroton Tab) 12.5 mg QAM PO 03/16/17 09:00 04/15/17 08:59 03/16/17 09:58 12.5 MG Vancomycin HCl (Vancomycin Oral Soln) 125 mg QID PO 03/16/17 17:00 03/30/17 16:59 03/16/17 20:55 125 MG Raspberry (Raspberry Syrup 5ml Cup) 5 ml QID PO 03/16/17 17:00 03/30/17 16:59 03/16/17 20:55 5 ML
[2017-03-17] VITALS (7 sets, daily range): BP systolic 87–116; BP diastolic 55–73; PULSE 70–80; TEMP 36.4–37.7; O2SAT 91–100
[2017-03-17 06:20] LABS: HEMATOCRIT 36.7 % (37-47); MEAN CELL VOLUME 91.1 fL (80-100); MEAN CORPUSCULAR HEMOGLOBIN 29.8 pg (25-34); MEAN CORPUSCULAR HGB CONC 32.7 g/dl (32-36); MEAN PLATELET VOLUME 8.5 fL (7.4-10.4); PLATELET COUNT 391 K/uL (130-400); RED BLOOD COUNT 4.03 M/uL (4.2-5.4); WHITE BLOOD COUNT 8.56 K/uL (4.8-10.8)
[2017-03-17 06:47] LABS: BUN/CREATININE RATIO 7.2 (10-20); CALCIUM 8.9 mg/dl (8.5-10.1); CREATININE 0.51 mg/dl (0.60-1.20); MAGNESIUM 1.5 mg/dl (1.8-2.4); POTASSIUM 3.1 mmol/L (3.5-5.1)
[2017-03-17] MEDS: CHLORTHALIDONE 25 MG TAB PO SCH (07:44)
[2017-03-17] MEDS: NYSTATIN SUSP 500,000 U/5 ML UDC PO SCH ×4 (07:44→20:24)
[2017-03-17] MEDS: FLUTICASONE PROPIONATE NA SPR 16 GM BTL NAE SCH (07:44)
[2017-03-17] MEDS: RASPBERRY SYRUP 5 ML UDP PO SCH ×4 (07:45→20:24)
[2017-03-17] MEDS: DULOXETINE HCL 60 MG CAP PO SCH (07:45)
[2017-03-17] MEDS: TIOTROPIUM BROMIDE 5 PUFF/90 MCG INH INH SCH (07:45)
[2017-03-17] MEDS: ENOXAPARIN 30 MG/0.3 ML SYR SC SCH (07:45)
[2017-03-17] MEDS: BREO ELLIPTA - ORDER AWAITING ACTION SCH ×2 (07:45→15:28)
[2017-03-17] MEDS: VANCOMYCIN HCL 125 MG/2.5ML SOLN PO SCH ×4 (07:45→20:25)
[2017-03-17] MEDS: CALCIUM 600MG + VIT D 400 IU TAB PO SCH (07:45)
[2017-03-17] MEDS: POTASSIUM CHLORIDE 20 MEQ TABCR PO SCH (07:46)
[2017-03-17] MEDS ORDERED: POTASSIUM CHLORIDE IV SCH ×2 (08:00)
[2017-03-17] MEDS ORDERED: [UNRECOGNIZED DRUG - OTHER] IV SCH (08:00)
[2017-03-17] MEDS ORDERED: [UNRECOGNIZED DRUG - OTHER] IV SCH (08:00)
[2017-03-17] MEDS ORDERED: POTASSIUM CHLORIDE 20 MEQ TABCR PO ONE (08:00)
[2017-03-17] MEDS ORDERED: MAGNESIUM SULFATE IV SCH (08:00)
[2017-03-17] MEDS ORDERED: MAG SULFATE IV SCH (08:00)
[2017-03-17] MEDS ORDERED: WTR IV SCH (08:00)
--- NOTE | 2017-03-17 22:41 | Progress Note ---
Medicine Progress Note Date & Time of Visit: Mar 17, 2017 at 18:43. Subjective 66 yo F with 8 days of diarrhea 2/2 cdiff presents for low potassium on outpatient bloodwork -diarrhea returned 3 BMs today -some abdominal discomfort still present -tolerating PO -educated on avoidance of dairy. Objective Last 8 Hrs Date Time Temp Pulse Resp B/P (MAP) Pulse Ox O2 Delivery O2 Flow Rate FiO2 03/17/17 15:53 36.4 73 16 105/71 (82) 95 03/17/17 12:00 Room Air 03/17/17 11:44 36.5 70 16 104/68 (80) 93 Physical Exam: GEN: WNWD, in no acute distress, alert and appropriate HEENT: NC/AT, PERRL, normal sclerae, MMM CARDIO: reg rate, S1/2 heard without m/g/r LUNGS: CTA bilaterally, no crackles, rales or wheezes, good diaphragmatic excursion ABD: soft, diffusely TTP, non-distended, no rebound or guarding, +BS EXTREMITY: RP and DP palpable 2+ bilat, no LE swelling or edema, extremities are warm and well-perfused NEURO: CN 2-12 grossly intact MUSC: 5/5 strength throughout, no focal deficits SKIN: warm and dry Laboratory Results: 03/17/17 05:34 03/17/17 05:34 Test 03/15/17 16:15 03/15/17 17:20 03/15/17 18:14 03/16/17 06:30 Immature Granulocyte % (Auto) 0.9 % White Blood Count 8.61 K/uL (4.8-10.8) Red Blood Count 3.88 M/uL (4.2-5.4) Hemoglobin 12.2 g/dL (12.0-16.0) Hematocrit 34.7 % (37-47) Mean Corpuscular Volume 89.4 fL (80-100) Mean Corpuscular Hemoglobin 31.4 pg (25-34) Mean Corpuscular Hemoglobin Concent 35.2 g/dl (32-36) Platelet Count 356 K/uL (130-400) Mean Platelet Volume 8.8 fL (7.4-10.4) Neutrophils (%) (Auto) 83.8 % Lymphocytes (%) (Auto) 5.8 % Monocytes (%) (Auto) 9.1 % Eosinophils (%) (Auto) 0.3 % Basophils (%) (Auto) 0.1 % Neutrophils # (Auto) 7.21 K/uL (1.4-6.5) Lymphocytes # (Auto) 0.50 K/uL (1.2-3.4) Monocytes # (Auto) 0.78 K/uL (0.11-0.59) Eosinophils # (Auto) 0.03 K/uL (0-0.5) Basophils # (Auto) 0.01 K/uL (0-0.2) Immature Granulocyte # (Auto) 0.08 K/uL (0.00-0.02) Total Bilirubin 0.3 mg/dl (0.2-1) Aspartate Amino Transf (AST/SGOT) 17 U/L (15-37) Alanine Aminotransferase (ALT/SGPT) 16 U/L (12-78) Alkaline Phosphatase 118 U/L (45-117) Total Creatine Kinase 78 U/L (26-192) Troponin I < 0.015 ng/ml (0-0.045) Total Protein 6.3 gm/dl (6.4-8.2) Albumin 2.6 gm/dl (3.4-5.0) Globulin 3.7 gm/dl (2.5-4.0) Albumin/Globulin Ratio 0.7 (0.9-2) Lipase 356 U/L (73-393) Thyroid Stimulating Hormone (TSH) 1.290 uIu/ml (0.300-4.500) Venous Blood pH 7.46 (7.36-7.41) Venous Blood Partial Pressure CO2 52 mmHg (38.0-50.0) Venous Blood Partial Pressure O2 17 mmHg Venous Blood HCO3 37 mmol/L Venous Blood Oxygen Saturation < 60.0 % Venous Blood Base Excess 11.1 mEq/L Urine Color YELLOW Urine Appearance CLEAR (CLEAR) Urine pH 7.0 (4.5-7.5) Urine Specific [place] 1.008 (1.000-1.030) Urine Protein NEG (NEG) Urine Glucose (UA) NEG (NEG) Urine Ketones NEG (NEG) Urine Occult Blood NEG (NEG) Urine Nitrite NEG (NEG) Urine Bilirubin NEG (NEG) Urine Urobilinogen NEG (NEG) Urine Leukocyte Esterase NEG (NEG) Prothrombin Time 10.6 SECONDS (9.0-12.0) Prothromb Time International Ratio 1.0 (0.9-1.1) Activated Partial Thromboplast Time 31.7 SECONDS (21.0-31.0) Partial Thromboplastin Ratio 1.2 Test 03/17/17 05:34 Red Blood Count 4.03 M/uL (4.2-5.4) Mean Corpuscular Volume 91.1 fL (80-100) Mean Corpuscular Hemoglobin 29.8 pg (25-34) Mean Corpuscular Hemoglobin Concent 32.7 g/dl (32-36) RDW Standard Deviation 41.6 fL (36.4-46.3) RDW Coefficient of Variation 12.5 % (11.5-14.5) Mean Platelet Volume 8.5 fL (7.4-10.4) Anion Gap 3.0 mmol/L (3-11) Est Creatinine Clear Calc Drug Dose 116.4 ml/min Estimated GFR () 117.0 Estimated GFR (Non- 100.9 BUN/Creatinine Ratio 7.2 (10-20) Calcium Level 8.9 mg/dl (8.5-10.1) Magnesium Level 1.5 mg/dl (1.8-2.4) Date/Time Source Procedure Growth Status 03/17/17 00:00 Stool WBC Smear Pending Received 03/17/17 00:00 Stool Shiga Toxin Test Pending Received 03/17/17 00:00 Stool Stool Culture Pending Received Last 24 Hours Test 03/17/17 05:34 White Blood Count 8.56 K/uL Red Blood Count 4.03 M/uL Hemoglobin 12.0 g/dL Hematocrit 36.7 % Mean Corpuscular Volume 91.1 fL Mean Corpuscular Hemoglobin 29.8 pg Mean Corpuscular Hemoglobin Concent 32.7 g/dl RDW Standard Deviation 41.6 fL RDW Coefficient of Variation 12.5 % Platelet Count 391 K/uL Mean Platelet Volume 8.5 fL Sodium Level 141 mmol/L Potassium Level 3.1 mmol/L Chloride Level 102 mmol/L Carbon Dioxide Level 36 mmol/L Anion Gap 3.0 mmol/L Blood Urea Nitrogen 4 mg/dl Creatinine 0.51 mg/dl Est Creatinine Clear Calc Drug Dose 116.4 ml/min Estimated GFR () 117.0 Estimated GFR (Non- 100.9 BUN/Creatinine Ratio 7.2 Random Glucose 114 mg/dl Calcium Level 8.9 mg/dl Magnesium Level 1.5 mg/dl Assessment & Plan 66 yo F with 8 days of diarrhea presents for low potassium on outpatient bloodwork 1. Hypokalemia and hypomagnesemia 2/2 diarrhea--replace IV/PO. Diarrhea stopped 3 days ago with one soft stool since; diarrhea started up again today. Abdominal pain is starting to improve and she is feeling better. Took off , december shower. 2. Diarrhea 2/2 c-diff-she denies any recent antibiotic usage. No others were sick around her. No h/o c-diff in the past. Diarrhea has resolved at this point. Cont Vanc PO. Educated on transmission of c-diff and proper handwashing instructions. 3. COPD-stable, cont home inhalers. Cont supplemental oxygen. Advised to bring Breo in from home as not on formulary. 4. HTN-at goal, cont home meds. Noted that she is on chlorthalidone which may contribute to hypokalemia. Holding chlorthalidone now. 5. Depression-cont Cymbalta 6. GERD-stop prilosec as may cause c-diff associate diarrhea. DVT proph-Lovenox Full Code Dispo-likely to home in 1-2 days. Amaris Parmar DO [facility] Hospitalist Current Inpatient Medications: Current Inpatient Medications Medications (Trade) Dose Ordered Sig/Patricia Route Start Time Stop Time Status Last Admin Dose Admin Enoxaparin Sodium (Lovenox Inj) 30 mg Q24H SC 03/16/17 08:00 04/15/17 07:59 03/17/17 07:45 30 MG Acetaminophen (Tylenol Tab) 650 mg Q4H PRN PO 03/15/17 19:00 04/14/17 18:59 Ondansetron HCl (Zofran Inj) 4 mg Q6H PRN IV 03/15/17 19:00 04/14/17 18:59 Polyethylene (Miralax Powder Packet) 17 gm DAILY PRN PO 03/15/17 19:00 04/14/17 18:59 Potassium Chloride (Klor-Con Tab) 20 meq QAM PO 03/16/17 09:00 04/15/17 08:59 03/17/17 07:46 20 MEQ Miscellaneous (Iv Fluids Completed) 1 ea PRN PRN N/A 03/15/17 19:00 03/15/18 18:59 Baclofen (Lioresal Tab) 20 mg TID PRN PO 03/15/17 19:00 04/14/17 18:59 Calcium/Vitamin D (Caltrate Plus Tab) 1 tab DAILY PO 03/16/17 09:00 04/15/17 08:59 03/17/17 07:45 1 TAB Celecoxib (CeleBREX CAP) 200 mg DAILY PRN PO 03/15/17 19:00 04/14/17 18:59 Duloxetine HCl (Cymbalta Cap) 60 mg DAILY PO 03/16/17 09:00 04/15/17 08:59 03/17/17 07:45 60 MG Fluticasone Propionate (Flonase Nasal [place]) 2 sprays DAILY CHRIS 03/16/17 09:00 04/15/17 08:59 03/17/17 07:44 2 SPRAYS Acetaminophen/ Hydrocodone Bitart ([place] 5/325 Tab) 1 tab Q6 PRN PO 03/15/17 19:00 03/29/17 18:59 03/15/17 21:17 1 TAB Nystatin (Mycostatin Susp) 5 ml QID PO 03/15/17 21:00 03/25/17 20:59 03/17/17 16:49 5 ML Tiotropium [place] (Spiriva Handihaler Inhaler) 1 puff DAILY INH 03/16/17 09:00 04/15/17 08:59 03/16/17 07:50 1 PUFF Atenolol (Tenormin Tab) 25 mg QAM PO 03/16/17 09:00 04/15/17 08:59 03/17/17 07:44 25 MG Miscellaneous Information (Order Awaiting Action) 1 ea QS N/A 03/16/17 00:00 04/15/17 00:00 Albuterol (Ventolin Hfa Inhaler) 2 puffs Q4 PRN INH 03/15/17 19:00 04/14/17 18:59 Chlorthalidone (Hygroton Tab) 12.5 mg QAM PO 03/16/17 09:00 04/15/17 08:59 03/17/17 07:44 12.5 MG Vancomycin HCl (Vancomycin Oral Soln) 125 mg QID PO 03/16/17 17:00 03/30/17 16:59 03/17/17 16:49 125 MG Raspberry (Raspberry Syrup 5ml Cup) 5 ml QID PO 03/16/17 17:00 03/30/17 16:59 03/17/17 16:49 5 ML Fluticasone/ Vilanterol (Breo Ellipta 200-25 Mcg/Inh) 1 inha QAM INH 03/18/17 09:00 04/17/17 08:59
[2017-03-18 06:00] LABS: HEMATOCRIT 33.7 % (37-47); MEAN CELL VOLUME 91.8 fL (80-100); MEAN CORPUSCULAR HEMOGLOBIN 31.6 pg (25-34); MEAN CORPUSCULAR HGB CONC 34.4 g/dl (32-36); MEAN PLATELET VOLUME 8.4 fL (7.4-10.4); PLATELET COUNT 350 K/uL (130-400); RED BLOOD COUNT 3.67 M/uL (4.2-5.4); WHITE BLOOD COUNT 6.73 K/uL (4.8-10.8)
[2017-03-18 07:03] LABS: BUN/CREATININE RATIO 8.1 (10-20); CALCIUM 8.7 mg/dl (8.5-10.1); CREATININE 0.68 mg/dl (0.60-1.20); MAGNESIUM 1.8 mg/dl (1.8-2.4); POTASSIUM 3.7 mmol/L (3.5-5.1)
[2017-03-18 07:14] VITALS: BP 100/65; PULSE 81; TEMP 37.2; O2SAT 90
[2017-03-18] MEDS: FLUTICASONE PROPIONATE NA SPR 16 GM BTL NAE SCH (07:47)
[2017-03-18] MEDS: VANCOMYCIN HCL 125 MG/2.5ML SOLN PO SCH ×4 (07:50→20:47)
[2017-03-18] MEDS: RASPBERRY SYRUP 5 ML UDP PO SCH ×4 (07:50→20:47)
[2017-03-18] MEDS: TIOTROPIUM BROMIDE 5 PUFF/90 MCG INH INH SCH (07:51)
[2017-03-18] MEDS: ENOXAPARIN 30 MG/0.3 ML SYR SC SCH (07:51)
[2017-03-18] MEDS: CALCIUM 600MG + VIT D 400 IU TAB PO SCH (07:52)
[2017-03-18] MEDS: DULOXETINE HCL 60 MG CAP PO SCH (07:53)
[2017-03-18] MEDS: NYSTATIN SUSP 500,000 U/5 ML UDC PO SCH ×4 (07:53→20:47)
[2017-03-18 08:00] VITALS: O2SAT 90
[2017-03-18] MEDS ORDERED: FLUTICASONE FUROATE-VILANTEROL 200/25 MCG INH INH SCH (09:00)
[2017-03-18 15:39] VITALS: BP 100/68; PULSE 70; TEMP 37; O2SAT 92
[2017-03-18] MEDS: HYDROCODONE/ACETAMOPHEN 5/325MG TAB PO PRN (20:55)
[2017-03-18 21:25] VITALS: BP 112/74; PULSE 69; TEMP 36.6; O2SAT 93
--- NOTE | 2017-03-18 22:47 | Progress Note ---
Medicine Progress Note Date & Time of Visit: Mar 18, 2017 at 1000. Subjective tolerating PO ambulating at baseline still some pain in the upper abdomen diarrhea still present; Objective Last 8 Hrs Date Time Temp Pulse Resp B/P (MAP) Pulse Ox O2 Delivery O2 Flow Rate FiO2 03/18/17 16:00 Room Air 03/18/17 15:39 37.0 70 16 100/68 (79) 92 Physical Exam: GEN: WNWD, in no acute distress, alert and appropriate HEENT: NC/AT, PERRL, normal sclerae, MMM CARDIO: reg rate, S1/2 heard without m/g/r LUNGS: CTA bilaterally, no crackles, rales or wheezes, good diaphragmatic excursion ABD: soft, diffusely TTP, non-distended, no rebound or guarding, +BS EXTREMITY: RP and DP palpable 2+ bilat, no LE swelling or edema, extremities are warm and well-perfused NEURO: CN 2-12 grossly intact MUSC: 5/5 strength throughout, no focal deficits SKIN: warm and dry Laboratory Results: 03/18/17 05:28 03/18/17 05:28 Test 03/15/17 16:15 03/15/17 17:20 03/15/17 18:14 03/16/17 06:30 Immature Granulocyte % (Auto) 0.9 % White Blood Count 8.61 K/uL (4.8-10.8) Red Blood Count 3.88 M/uL (4.2-5.4) Hemoglobin 12.2 g/dL (12.0-16.0) Hematocrit 34.7 % (37-47) Mean Corpuscular Volume 89.4 fL (80-100) Mean Corpuscular Hemoglobin 31.4 pg (25-34) Mean Corpuscular Hemoglobin Concent 35.2 g/dl (32-36) Platelet Count 356 K/uL (130-400) Mean Platelet Volume 8.8 fL (7.4-10.4) Neutrophils (%) (Auto) 83.8 % Lymphocytes (%) (Auto) 5.8 % Monocytes (%) (Auto) 9.1 % Eosinophils (%) (Auto) 0.3 % Basophils (%) (Auto) 0.1 % Neutrophils # (Auto) 7.21 K/uL (1.4-6.5) Lymphocytes # (Auto) 0.50 K/uL (1.2-3.4) Monocytes # (Auto) 0.78 K/uL (0.11-0.59) Eosinophils # (Auto) 0.03 K/uL (0-0.5) Basophils # (Auto) 0.01 K/uL (0-0.2) Immature Granulocyte # (Auto) 0.08 K/uL (0.00-0.02) Total Bilirubin 0.3 mg/dl (0.2-1) Aspartate Amino Transf (AST/SGOT) 17 U/L (15-37) Alanine Aminotransferase (ALT/SGPT) 16 U/L (12-78) Alkaline Phosphatase 118 U/L (45-117) Total Creatine Kinase 78 U/L (26-192) Troponin I < 0.015 ng/ml (0-0.045) Total Protein 6.3 gm/dl (6.4-8.2) Albumin 2.6 gm/dl (3.4-5.0) Globulin 3.7 gm/dl (2.5-4.0) Albumin/Globulin Ratio 0.7 (0.9-2) Lipase 356 U/L (73-393) Thyroid Stimulating Hormone (TSH) 1.290 uIu/ml (0.300-4.500) Venous Blood pH 7.46 (7.36-7.41) Venous Blood Partial Pressure CO2 52 mmHg (38.0-50.0) Venous Blood Partial Pressure O2 17 mmHg Venous Blood HCO3 37 mmol/L Venous Blood Oxygen Saturation < 60.0 % Venous Blood Base Excess 11.1 mEq/L Urine Color YELLOW Urine Appearance CLEAR (CLEAR) Urine pH 7.0 (4.5-7.5) Urine Specific [place] 1.008 (1.000-1.030) Urine Protein NEG (NEG) Urine Glucose (UA) NEG (NEG) Urine Ketones NEG (NEG) Urine Occult Blood NEG (NEG) Urine Nitrite NEG (NEG) Urine Bilirubin NEG (NEG) Urine Urobilinogen NEG (NEG) Urine Leukocyte Esterase NEG (NEG) Prothrombin Time 10.6 SECONDS (9.0-12.0) Prothromb Time International Ratio 1.0 (0.9-1.1) Activated Partial Thromboplast Time 31.7 SECONDS (21.0-31.0) Partial Thromboplastin Ratio 1.2 Test 03/18/17 05:28 Red Blood Count 3.67 M/uL (4.2-5.4) Mean Corpuscular Volume 91.8 fL (80-100) Mean Corpuscular Hemoglobin 31.6 pg (25-34) Mean Corpuscular Hemoglobin Concent 34.4 g/dl (32-36) RDW Standard Deviation 42.3 fL (36.4-46.3) RDW Coefficient of Variation 12.7 % (11.5-14.5) Mean Platelet Volume 8.4 fL (7.4-10.4) Anion Gap 5.0 mmol/L (3-11) Est Creatinine Clear Calc Drug Dose 88.0 ml/min Estimated GFR () 106.4 Estimated GFR (Non- 91.8 BUN/Creatinine Ratio 8.1 (10-20) Calcium Level 8.7 mg/dl (8.5-10.1) Magnesium Level 1.8 mg/dl (1.8-2.4) Date/Time Source Procedure Growth Status 03/17/17 00:00 Stool WBC Smear - Final Resulted 03/17/17 00:00 Stool Shiga Toxin Test Pending Resulted 03/17/17 00:00 Stool Stool Culture Pending Resulted Last 24 Hours Test 03/18/17 05:28 White Blood Count 6.73 K/uL Red Blood Count 3.67 M/uL Hemoglobin 11.6 g/dL Hematocrit 33.7 % Mean Corpuscular Volume 91.8 fL Mean Corpuscular Hemoglobin 31.6 pg Mean Corpuscular Hemoglobin Concent 34.4 g/dl RDW Standard Deviation 42.3 fL RDW Coefficient of Variation 12.7 % Platelet Count 350 K/uL Mean Platelet Volume 8.4 fL Sodium Level 140 mmol/L Potassium Level 3.7 mmol/L Chloride Level 102 mmol/L Carbon Dioxide Level 33 mmol/L Anion Gap 5.0 mmol/L Blood Urea Nitrogen 6 mg/dl Creatinine 0.68 mg/dl Est Creatinine Clear Calc Drug Dose 88.0 ml/min Estimated GFR () 106.4 Estimated GFR (Non- 91.8 BUN/Creatinine Ratio 8.1 Random Glucose 107 mg/dl Calcium Level 8.7 mg/dl Magnesium Level 1.8 mg/dl Assessment & Plan 66 yo F admitted with c-diff diarrhea 1. Hypokalemia and hypomagnesemia 2/2 diarrhea--improved. Diarrhea still present today with improved abdominal pain. 2. Diarrhea 2/2 c-diff-she denies any recent antibiotic usage. No others were sick around her. No h/o c-diff in the past. Diarrhea has resolved at this point. Cont Vanc PO. Educated on transmission of c-diff and proper handwashing instructions. 3. COPD-stable, cont home inhalers. Cont supplemental oxygen. Advised to bring Breo in from home as not on formulary. 4. HTN-at goal, cont home meds. Noted that she is on chlorthalidone which may contribute to hypokalemia. Holding chlorthalidone now. 5. Depression-cont Cymbalta 6. GERD-stop prilosec as may cause c-diff associate diarrhea. DVT proph-Lovenox Full Code Dispo-likely to home in 1-2 days. Amaris Parmar DO [facility] Hospitalist Current Inpatient Medications: Current Inpatient Medications Medications (Trade) Dose Ordered Sig/Patricia Route Start Time Stop Time Status Last Admin Dose Admin Enoxaparin Sodium (Lovenox Inj) 30 mg Q24H SC 03/16/17 08:00 04/15/17 07:59 03/18/17 07:51 30 MG Acetaminophen (Tylenol Tab) 650 mg Q4H PRN PO 03/15/17 19:00 04/14/17 18:59 Ondansetron HCl (Zofran Inj) 4 mg Q6H PRN IV 03/15/17 19:00 04/14/17 18:59 03/17/17 20:29 4 MG Polyethylene (Miralax Powder Packet) 17 gm DAILY PRN PO 03/15/17 19:00 04/14/17 18:59 Miscellaneous (Iv Fluids Completed) 1 ea PRN PRN N/A 03/15/17 19:00 03/15/18 18:59 Baclofen (Lioresal Tab) 20 mg TID PRN PO 03/15/17 19:00 04/14/17 18:59 Calcium/Vitamin D (Caltrate Plus Tab) 1 tab DAILY PO 03/16/17 09:00 04/15/17 08:59 03/18/17 07:52 1 TAB Celecoxib (CeleBREX CAP) 200 mg DAILY PRN PO 03/15/17 19:00 04/14/17 18:59 Duloxetine HCl (Cymbalta Cap) 60 mg DAILY PO 03/16/17 09:00 04/15/17 08:59 03/18/17 07:53 60 MG Fluticasone Propionate (Flonase Nasal [place]) 2 sprays DAILY CHRIS 03/16/17 09:00 04/15/17 08:59 03/18/17 07:47 2 SPRAYS Acetaminophen/ Hydrocodone Bitart ([place] 5/325 Tab) 1 tab Q6 PRN PO 03/15/17 19:00 03/29/17 18:59 03/15/17 21:17 1 TAB Nystatin (Mycostatin Susp) 5 ml QID PO 03/15/17 21:00 03/25/17 20:59 03/18/17 16:10 5 ML Tiotropium [place] (Spiriva Handihaler Inhaler) 1 puff DAILY INH 03/16/17 09:00 04/15/17 08:59 03/16/17 07:50 1 PUFF Atenolol (Tenormin Tab) 25 mg QAM PO 03/16/17 09:00 04/15/17 08:59 03/18/17 07:53 25 MG Albuterol (Ventolin Hfa Inhaler) 2 puffs Q4 PRN INH 03/15/17 19:00 04/14/17 18:59 Vancomycin HCl (Vancomycin Oral Soln) 125 mg QID PO 03/16/17 17:00 03/30/17 16:59 03/18/17 16:08 125 MG Raspberry (Raspberry Syrup 5ml Cup) 5 ml QID PO 03/16/17 17:00 03/30/17 16:59 03/18/17 16:08 5 ML Fluticasone/ Vilanterol (Breo Ellipta 200-25 Mcg/Inh) 1 inha QAM INH 03/19/17 09:00 04/18/17 08:59
[2017-03-18 23:45] VITALS: BP 92/57; PULSE 63; TEMP 36.5; O2SAT 99
[2017-03-18 23:47] VITALS: BP 92/57; PULSE 63; TEMP 36.5; O2SAT 99
[2017-03-19 07:30] VITALS: BP 103/68; PULSE 68; TEMP 36.8; O2SAT 97
[2017-03-19] MEDS: TIOTROPIUM BROMIDE 5 PUFF/90 MCG INH INH SCH (08:38)
[2017-03-19] MEDS: DULOXETINE HCL 60 MG CAP PO SCH (08:39)
[2017-03-19] MEDS: NYSTATIN SUSP 500,000 U/5 ML UDC PO SCH ×4 (08:39→19:32)
[2017-03-19] MEDS: CALCIUM 600MG + VIT D 400 IU TAB PO SCH (08:39)
[2017-03-19] MEDS: FLUTICASONE PROPIONATE NA SPR 16 GM BTL NAE SCH (08:39)
[2017-03-19] MEDS: ENOXAPARIN 30 MG/0.3 ML SYR SC SCH (08:40)
[2017-03-19 08:41] LABS: BUN/CREATININE RATIO 8.4 (10-20); CALCIUM 9.1 mg/dl (8.5-10.1); CREATININE 0.58 mg/dl (0.60-1.20); MAGNESIUM 1.7 mg/dl (1.8-2.4); POTASSIUM 3.4 mmol/L (3.5-5.1)
[2017-03-19] MEDS: VANCOMYCIN HCL 125 MG/2.5ML SOLN PO SCH ×4 (08:42→19:32)
[2017-03-19] MEDS: FLUTICASONE FUROATE-VILANTEROL 200/25 MCG INH INH SCH (08:42)
[2017-03-19] MEDS: RASPBERRY SYRUP 5 ML UDP PO SCH ×4 (08:43→19:32)
[2017-03-19] MEDS ORDERED: POTASSIUM CHLORIDE IV SCH (10:00)
[2017-03-19] MEDS ORDERED: POTASSIUM CHLORIDE 20 MEQ TABCR PO ONE (10:00)
[2017-03-19] MEDS ORDERED: MAG SULFATE IV SCH (10:00)
[2017-03-19] MEDS ORDERED: [UNRECOGNIZED DRUG - OTHER] IV SCH (10:00)
[2017-03-19 15:20] VITALS: BP 97/63; PULSE 70; TEMP 36.5; O2SAT 93
[2017-03-19] MEDS ORDERED: NURSING VERBAL MED ORDER ONE (16:30)
[2017-03-19] MEDS ORDERED: TIOTROPIUM BROMIDE 5 PUFF/90 MCG INH INH SCH (17:00)
--- NOTE | 2017-03-19 17:54 | Progress Note ---
Medicine Progress Note Date & Time of Visit: Mar 19, 2017 at 12:48. Subjective tolerating PO abd pain slightly worse today ambulating around hallways answered multiple questions about c-diff Objective Last 8 Hrs Date Time Temp Pulse Resp B/P (MAP) Pulse Ox O2 Delivery O2 Flow Rate FiO2 03/19/17 09:41 Room Air 03/19/17 07:30 36.8 68 16 103/68 (80) 97 Nasal Cannula 2.0 Physical Exam: GEN: WNWD, in no acute distress, alert and appropriate HEENT: NC/AT, PERRL, normal sclerae, MMM CARDIO: reg rate, S1/2 heard without m/g/r LUNGS: CTA bilaterally, no crackles, rales or wheezes, good diaphragmatic excursion ABD: soft, diffusely TTP, non-distended, no rebound or guarding, +BS EXTREMITY: RP and DP palpable 2+ bilat, no LE swelling or edema, extremities are warm and well-perfused NEURO: CN 2-12 grossly intact MUSC: 5/5 strength throughout, no focal deficits SKIN: warm and dry Laboratory Results: 03/18/17 05:28 03/19/17 07:28 Test 03/15/17 16:15 03/15/17 17:20 03/15/17 18:14 03/16/17 06:30 Immature Granulocyte % (Auto) 0.9 % White Blood Count 8.61 K/uL (4.8-10.8) Red Blood Count 3.88 M/uL (4.2-5.4) Hemoglobin 12.2 g/dL (12.0-16.0) Hematocrit 34.7 % (37-47) Mean Corpuscular Volume 89.4 fL (80-100) Mean Corpuscular Hemoglobin 31.4 pg (25-34) Mean Corpuscular Hemoglobin Concent 35.2 g/dl (32-36) Platelet Count 356 K/uL (130-400) Mean Platelet Volume 8.8 fL (7.4-10.4) Neutrophils (%) (Auto) 83.8 % Lymphocytes (%) (Auto) 5.8 % Monocytes (%) (Auto) 9.1 % Eosinophils (%) (Auto) 0.3 % Basophils (%) (Auto) 0.1 % Neutrophils # (Auto) 7.21 K/uL (1.4-6.5) Lymphocytes # (Auto) 0.50 K/uL (1.2-3.4) Monocytes # (Auto) 0.78 K/uL (0.11-0.59) Eosinophils # (Auto) 0.03 K/uL (0-0.5) Basophils # (Auto) 0.01 K/uL (0-0.2) Immature Granulocyte # (Auto) 0.08 K/uL (0.00-0.02) Total Bilirubin 0.3 mg/dl (0.2-1) Aspartate Amino Transf (AST/SGOT) 17 U/L (15-37) Alanine Aminotransferase (ALT/SGPT) 16 U/L (12-78) Alkaline Phosphatase 118 U/L (45-117) Total Creatine Kinase 78 U/L (26-192) Troponin I < 0.015 ng/ml (0-0.045) Total Protein 6.3 gm/dl (6.4-8.2) Albumin 2.6 gm/dl (3.4-5.0) Globulin 3.7 gm/dl (2.5-4.0) Albumin/Globulin Ratio 0.7 (0.9-2) Lipase 356 U/L (73-393) Thyroid Stimulating Hormone (TSH) 1.290 uIu/ml (0.300-4.500) Venous Blood pH 7.46 (7.36-7.41) Venous Blood Partial Pressure CO2 52 mmHg (38.0-50.0) Venous Blood Partial Pressure O2 17 mmHg Venous Blood HCO3 37 mmol/L Venous Blood Oxygen Saturation < 60.0 % Venous Blood Base Excess 11.1 mEq/L Urine Color YELLOW Urine Appearance CLEAR (CLEAR) Urine pH 7.0 (4.5-7.5) Urine Specific [place] 1.008 (1.000-1.030) Urine Protein NEG (NEG) Urine Glucose (UA) NEG (NEG) Urine Ketones NEG (NEG) Urine Occult Blood NEG (NEG) Urine Nitrite NEG (NEG) Urine Bilirubin NEG (NEG) Urine Urobilinogen NEG (NEG) Urine Leukocyte Esterase NEG (NEG) Prothrombin Time 10.6 SECONDS (9.0-12.0) Prothromb Time International Ratio 1.0 (0.9-1.1) Activated Partial Thromboplast Time 31.7 SECONDS (21.0-31.0) Partial Thromboplastin Ratio 1.2 Test 03/18/17 05:28 03/19/17 07:28 Red Blood Count 3.67 M/uL (4.2-5.4) Mean Corpuscular Volume 91.8 fL (80-100) Mean Corpuscular Hemoglobin 31.6 pg (25-34) Mean Corpuscular Hemoglobin Concent 34.4 g/dl (32-36) RDW Standard Deviation 42.3 fL (36.4-46.3) RDW Coefficient of Variation 12.7 % (11.5-14.5) Mean Platelet Volume 8.4 fL (7.4-10.4) Anion Gap 7.0 mmol/L (3-11) Est Creatinine Clear Calc Drug Dose 103.1 ml/min Estimated GFR () 112.1 Estimated GFR (Non- 96.7 BUN/Creatinine Ratio 8.4 (10-20) Calcium Level 9.1 mg/dl (8.5-10.1) Magnesium Level 1.7 mg/dl (1.8-2.4) Date/Time Source Procedure Growth Status 03/17/17 00:00 Stool WBC Smear - Final Resulted 03/17/17 00:00 Stool Shiga Toxin Test - Preliminary No E. Coli shiga toxin 1 or shiga tox... Resulted 03/17/17 00:00 Stool Stool Culture - Preliminary NO SALMONELLA ISOLATED TO DATE,... Resulted Last 24 Hours Test 03/19/17 07:28 Sodium Level 142 mmol/L Potassium Level 3.4 mmol/L Chloride Level 103 mmol/L Carbon Dioxide Level 32 mmol/L Anion Gap 7.0 mmol/L Blood Urea Nitrogen 5 mg/dl Creatinine 0.58 mg/dl Est Creatinine Clear Calc Drug Dose 103.1 ml/min Estimated GFR () 112.1 Estimated GFR (Non- 96.7 BUN/Creatinine Ratio 8.4 Random Glucose 104 mg/dl Calcium Level 9.1 mg/dl Magnesium Level 1.7 mg/dl Assessment & Plan 66 yo F admitted with c-diff diarrhea 1. Hypokalemia and hypomagnesemia 2/2 diarrhea--improved. Diarrhea still present today with worsened abdominal pain. 2. Diarrhea 2/2 c-diff-she denies any recent antibiotic usage. No others were sick around her. No h/o c-diff in the past. Diarrhea has resolved at this point. Cont Vanc PO. Educated on transmission of c-diff and proper handwashing instructions. 3. COPD-stable, cont home inhalers. Cont supplemental oxygen. 4. HTN-at goal, cont atenolol. Noted that she is on chlorthalidone which may contribute to hypokalemia. Holding chlorthalidone now. 5. Depression-cont Cymbalta 6. GERD-stop prilosec as may cause c-diff associate diarrhea. 7. Anemia-mild, likely 2/2 recent phlebotomy. DVT proph-Lovenox Full Code Dispo-likely to home in am. Amaris Parmar DO [facility] Hospitalist Current Inpatient Medications: Current Inpatient Medications Medications (Trade) Dose Ordered Sig/Patricia Route Start Time Stop Time Status Last Admin Dose Admin Enoxaparin Sodium (Lovenox Inj) 30 mg Q24H SC 03/16/17 08:00 04/15/17 07:59 03/19/17 08:40 30 MG Acetaminophen (Tylenol Tab) 650 mg Q4H PRN PO 03/15/17 19:00 04/14/17 18:59 Ondansetron HCl (Zofran Inj) 4 mg Q6H PRN IV 03/15/17 19:00 04/14/17 18:59 03/17/17 20:29 4 MG Polyethylene (Miralax Powder Packet) 17 gm DAILY PRN PO 03/15/17 19:00 04/14/17 18:59 Miscellaneous (Iv Fluids Completed) 1 ea PRN PRN N/A 03/15/17 19:00 03/15/18 18:59 Baclofen (Lioresal Tab) 20 mg TID PRN PO 03/15/17 19:00 04/14/17 18:59 Calcium/Vitamin D (Caltrate Plus Tab) 1 tab DAILY PO 03/16/17 09:00 04/15/17 08:59 03/19/17 08:39 1 TAB Celecoxib (CeleBREX CAP) 200 mg DAILY PRN PO 03/15/17 19:00 04/14/17 18:59 Duloxetine HCl (Cymbalta Cap) 60 mg DAILY PO 03/16/17 09:00 04/15/17 08:59 03/19/17 08:39 60 MG Fluticasone Propionate (Flonase Nasal [place]) 2 sprays DAILY CHRIS 03/16/17 09:00 04/15/17 08:59 03/19/17 08:39 2 SPRAYS Acetaminophen/ Hydrocodone Bitart ([place] 5/325 Tab) 1 tab Q6 PRN PO 03/15/17 19:00 03/29/17 18:59 03/18/17 20:55 1 TAB Nystatin (Mycostatin Susp) 5 ml QID PO 03/15/17 21:00 03/25/17 20:59 03/19/17 12:18 5 ML Tiotropium [place] (Spiriva Handihaler Inhaler) 1 puff DAILY INH 03/16/17 09:00 04/15/17 08:59 03/19/17 08:38 1 PUFF Atenolol (Tenormin Tab) 25 mg QAM PO 03/16/17 09:00 04/15/17 08:59 03/19/17 08:40 25 MG Albuterol (Ventolin Hfa Inhaler) 2 puffs Q4 PRN INH 03/15/17 19:00 04/14/17 18:59 Vancomycin HCl (Vancomycin Oral Soln) 125 mg QID PO 03/16/17 17:00 03/30/17 16:59 03/19/17 12:18 125 MG Raspberry (Raspberry Syrup 5ml Cup) 5 ml QID PO 03/16/17 17:00 03/30/17 16:59 03/19/17 12:18 5 ML Fluticasone/ Vilanterol (Breo Ellipta 200-25 Mcg/Inh) 1 inha QAM INH 03/19/17 08:00 04/18/17 08:59 03/19/17 08:42 1 INHA Potassium Chloride 20 meq/ Magnesium Sulfate 4 gm/Sodium Chloride 518 ml @ 125 mls/hr Q4H9M IV 03/19/17 10:00 03/19/17 14:00 03/19/17 10:09 125 MLS/HR
[2017-03-19] MEDS: HYDROCODONE/ACETAMOPHEN 5/325MG TAB PO PRN (19:31)
[2017-03-20 00:07] VITALS: BP 94/58; PULSE 64; TEMP 36.7; O2SAT 97
[2017-03-20 06:20] LABS: HEMATOCRIT 33.6 % (37-47); MEAN CELL VOLUME 91.8 fL (80-100); MEAN CORPUSCULAR HEMOGLOBIN 30.6 pg (25-34); MEAN CORPUSCULAR HGB CONC 33.3 g/dl (32-36); MEAN PLATELET VOLUME 8.2 fL (7.4-10.4); PLATELET COUNT 341 K/uL (130-400); RED BLOOD COUNT 3.66 M/uL (4.2-5.4); WHITE BLOOD COUNT 3.34 K/uL (4.8-10.8)
[2017-03-20 06:58] LABS: BUN/CREATININE RATIO 13.3 (10-20); CALCIUM 8.9 mg/dl (8.5-10.1); CREATININE 0.58 mg/dl (0.60-1.20); POTASSIUM 3.6 mmol/L (3.5-5.1)
[2017-03-20 07:19] VITALS: BP 107/70; PULSE 64; TEMP 36.8; O2SAT 95
[2017-03-20] MEDS: CALCIUM 600MG + VIT D 400 IU TAB PO SCH (08:31)
[2017-03-20] MEDS: NYSTATIN SUSP 500,000 U/5 ML UDC PO SCH ×2 (08:32→12:25)
[2017-03-20] MEDS: RASPBERRY SYRUP 5 ML UDP PO SCH ×2 (08:32→12:25)
[2017-03-20] MEDS: VANCOMYCIN HCL 125 MG/2.5ML SOLN PO SCH ×2 (08:32→12:25)
[2017-03-20] MEDS: DULOXETINE HCL 60 MG CAP PO SCH (08:32)
[2017-03-20] MEDS: ENOXAPARIN 30 MG/0.3 ML SYR SC SCH (08:33)
[2017-03-20] MEDS: FLUTICASONE PROPIONATE NA SPR 16 GM BTL NAE SCH (08:33)
[2017-03-20] MEDS: FLUTICASONE FUROATE-VILANTEROL 200/25 MCG INH INH SCH (08:34)
[2017-03-20] MEDS ORDERED: ATEN50TA PO (12:20)
[2017-03-20] MEDS ORDERED: VNCS125 PO (12:20)
--- NOTE | 2017-03-20 12:27 | Discharge Summary ---
Discharge Summary Date of Service Mar 20, 2017. Discharge Summary Admission Date: Mar 17, 2017 at 08:26 Discharge Date: Mar 20, 2017 Discharge Disposition: Home Principal Diagnosis: Hypokalemia and hypomagnesemia 2/2 diarrhea 2/2 c-diff toxin COPD-stable HTN Depression GERD Anemia Procedures: None. Vaccinations: None. Consultations: None. Pending Studies/Follow-Up: see instructions below Medication Reconciliation New Medications: Atenolol (Tenormin) 50 Mg Tab 50 MG PO DAILY for 30 Days, #30 TAB Famotidine (Pepcid) 20 Mg Tab 1 TAB PO BID PRN for heartburn for 30 Days, #60 TAB 3 Refills Vancomycin HCl (Vancomycin HCl) 125 Mg/2.5 Ml Susp 125 MG PO QID for 10 Days, #40 EA Continued Medications: Amoxicillin & Pot Clavulanate (Amoxicillin/Clavulanate P) 1 Tab Tab 1 TAB PO Q12 for RESQUE KIT, #20 Baclofen (Baclofen) 20 Mg Tab 20 MG PO TID PRN for Muscle Spasms, #30 Calcium Carbonate-Vitamin D W/ (Caltrate 600 Plus) 1 Tab Tab 1 TAB PO DAILY, TAB Celecoxib (Celecoxib) 100 Mg Cap 200 MG PO DAILY PRN for Pain, #90 Clindamycin Phosphate (Topical (Clindamycin Phosphate) 1 % Gel 1 APPLN TOP QPM PRN for IRRITATION, #30 APPLY TO SCALP & EAR Clobetasol Propionate (Clobetasol Propionate) 0.05 % Sha 1 APPLN TOP 3XWK PRN for IRRITATION, #118 Duloxetine HCl (Duloxetine HCl) 60 Mg Cap 60 MG PO DAILY, #90 Fluticasone Furoate-Vilanterol (Breo Ellipta) 1 Inh Inh 1 DOSE INH QAM Fluticasone Propionate (Fluticasone Propionate) 120 Sprays/6000 Mcg Inha 2 SPRAYS CHRIS DAILY, #16 Home O2 Therapy (Oxygen) Gas 2 LITERS NA HS Hydrocodone/Acetaminophen 5MG/325MG ([place] 5MG/325MG) Tab 1 TABLET PO Q6 PRN for Pain, #10 TAB Prednisone (Prednisone) 20 Mg Tab 20 MG PO PRN UD for RESQUE KIT, #12 Tiotropium [place] (Spiriva Handihaler) 30 Puff/540 Mcg Aerp 1 CAP INH DAILY, #90 [Proair] () 2 PUFF INH Q4 PRN for SOB/Wheezing, #27 Discontinued Medications: Atenolol & Chlorthalidone (Tenoretic 50MG/25MG) 1 Tab Tab 0.5 TAB PO DAILY, #45 Nystatin (Nystatin Suspension) 1 Ml Susp 5 ML PO QID for THRUSH, #240 Omeprazole (Prilosec) 20 Mg Cap 20 MG PO DAILY, #90 Admission Information HPI (per Admitting provider): Patient is a 66 yo female who presents to the hospital after being called by outpatient clinic that she had abnormal labs and needed to go to the ER. She states she has been dealing with over a week of severe diarrhea, poor oral intake, nausea and abdominal pain which finally started to improve on Thursday. Also unrelated, the patient has had ongoing back pain for which she was recently seen in the ER and given pain medication for. She states that 2 days ago she was seen at an urgent care center and today they called her and told her to come to the emergency department secondary to abnormal laboratory studies. Per records sodium was 131, potassium 2.6 and creatinine 1.2. Patient states that she has felt malaise, weakness all over and just does not feel well. Her back pain is in the lower back and is worse in the left side and worse with movement. Denies and fevers, chills, sweats, SOLITARIO, CP or SOB. She had some abdominal pain and nausea/vomiting but it resolved. Denies melena or hematochezia. Has only had 1 loose BM since Thursday. Physical Exam (per Admitting): General Appearance: WD/WN, no apparent distress Head: normocephalic, atraumatic Eyes: PERRL, EOMI ENT: hearing grossly normal Neck: supple, no JVD, no carotid bruits, trachea midline Respiratory/Chest: chest non-tender, lungs clear, normal breath sounds, no respiratory distress Cardiovascular: regular rate, rhythm, no edema, no gallop, no JVD, no murmur Abdomen/GI: normal bowel sounds, non tender, soft, no organomegaly Back: + decreased range of motion, + paravertebral tenderness Extremities/Musculoskelatal: no calf tenderness, normal capillary refill, no pedal edema Neurologic/Psych: no motor/sensory deficits, alert, normal mood/affect, oriented x 3 Skin: normal color, warm/dry, no rash Hospital Course 66 yo F admitted with c-diff diarrhea 1. Hypokalemia and hypomagnesemia 2/2 diarrhea--improved. Diarrhea still present today with worsened abdominal pain. 2. Diarrhea 2/2 c-diff-she denies any recent antibiotic usage. No others were sick around her. No h/o c-diff in the past. Diarrhea has resolved at this point. Cont Vanc PO. Educated on transmission of c-diff and proper handwashing instructions. 3. COPD-stable, cont home inhalers. Cont supplemental oxygen. 4. HTN-at goal, cont atenolol. Noted that she is on chlorthalidone which may contribute to hypokalemia. Holding chlorthalidone now. 5. Depression-cont Cymbalta 6. GERD-stop prilosec as may cause c-diff associate diarrhea. 7. Anemia-mild, likely 2/2 recent phlebotomy. On day of discharge she was afebrile and hemodynamically stable. Her abdominal pain and diarrhea had almost resolved and was greatly improved. Physical exam was unremarkable. Electrolytes had remained stable after replacement. She was sent home in stable condition. Total time spent on discharge = 60 minutes This includes examination of the patient, discharge planning, medication reconciliation, and communication with other providers. [place] [address] Discharge Medical Patient Name: Maria G Walters Unit Number: [id number] Date of : 1950 Patient Status: Admitted Inpatient Attending Doctor: Amaris Parmar DO DI: Medical v4 Discharge Instructions Date of Service Mar 20, 2017. Admission Reason for Admission: Electrolyte Abnormality, Weakness Discharge Discharge Diagnosis / Problem: c-diff diarrhea Discharge Goals Goal(s): Therapeutic intervention Activity Recommendations Activity Limitations: per Instructions/Follow-up section . Instructions / Follow-Up Instructions / Follow-Up Please take all medications as instructed. You have a follow-up appointment scheduled with Dr. Littlejohn on 03/23 @ 12: 30pm for follow-up from this hospitalization. During this visit it will be important to address your magnesium and potassium levels, which have been low with the ongoing diarrhea, and reassess you blood pressure with the changes made to your medications. Please bring all discharge paperwork with you to this appointment (same time as before) and arrive 10 minutes early. It was a pleasure taking care of you! Call if you have any questions or problems. You can reach a [facility] hospitalist on duty at [facility] 24 hours a day by calling [phone]. Take care of yourself. DO [facility] Hospital[facility] Current Hospital Diet Patient's current hospital diet: Regular Diet Discharge Diet Recommended Diet: Regular Diet Procedures Procedures Performed: None. Pending Studies Studies pending at discharge: no Medical Emergencies . Who to Call and When: Medical Emergencies: If at any time you feel your situation is an emergency, please call 911 immediately. . Non-Emergent Contact Non-Emergency issues call your: Primary Care Provider . . "Provider Documentation" section prepared by Amaris Parmar. . VTE Core Measure Inpt VTE Proph given/why not?: Enoxaparin (Lovenox)SQ Additional Copies To Sukhwinder Littlejohn M.D.
[2017-03-20] MEDS ORDERED: FAMO20TA9 PO (12:28)
[2017-03-20 12:29] VITALS: BP 107/70; PULSE 64; TEMP 36.8; O2SAT 95
--- NOTE | 2017-03-20 14:59 | Progress Note ---
Progress Note Date of Service Mar 20, 2017. Progress Note A script for Vanc PO in tablet form was called into [facility] at [facility] for her as this was financially better for her than the syrup. DO ANA
== END 2017-03-20 14:43 | disposition home or self-care (01) | DRG 373 ==
LOC: C.EDB 15:43 → C.MED 18:49 → ENRESERV 19:04 → OBSVTOIN 03-17 08:26 → C.4E 03-18 21:25
PROVIDERS: ADMIT Internal Medicine; ATTEND Hospitalist
DX: A04.7 Enterocolitis due to Clostridium difficile (principal); J44.9 Chronic obstructive pulmonary disease, unspecified; F32.9 Major depressive disorder, single episode, unspecified; M79.7 Fibromyalgia; E78.5 Hyperlipidemia, unspecified; M47.896 Other spondylosis, lumbar region; I10 Essential (primary) hypertension; Z87.891 Personal history of nicotine dependence; E87.6 Hypokalemia; E83.42 Hypomagnesemia; E86.0 Dehydration; D64.9 Anemia, unspecified

== ENCOUNTER 2017-09-06 12:38 | Emergency (ER) | payer OTHER ==
[~2017-09-06] VITALS: Ht 165.1 cm; Wt 80.9 kg
[~2017-09-06 12:38] MED LIST changes: -ALBINS/ NEB; -ATEN50TA21 PO; +FAMO20TA9 PO; -HYDR-5688 PO; -NYSS/ PO; -OMEP20CA9 PO; +VNCS125 PO
[2017-09-06 12:40] VITALS: TEMP 36.3; Ht 165.1 cm; Wt 80.9 kg
[2017-09-06 12:50] VITALS: O2SAT 98
--- NOTE | 2017-09-06 12:51 | EMERGENCY ROOM VISIT NOTE ---
History Report prepared by Chauncey: Turner Bennett Under the Supervision of: Dr. Marlon Munoz M.D. First contact with patient: 12:46 Chief Complaint: RESPIRATORY PROBLEMS Stated Complaint: COPD, RESTRICTION BREATHING, COUGHING,SOB,WEAK History of Present Illness The patient is a 67 year old female with a history of COPD who presents to the Emergency Room with complaints of persistent respiratory problems that started last week. She says that she went to see her primary care provider last week, and was started on 100 mg Doxycycline 4 days ago, but her symptoms are not getting better. The patient notes that she is on her last dose of 20 mg Prednisone. She says that she has been short of breath with a cough with green sputum. She adds that she has been having some back tightness and chest tightness. She notes that she has been weak. The patient says that got C. difficile last year. The patient denies any fevers, leg swelling or calf pain. She notes no heart attack history. She has no family history of blood clots. Source of History: patient Onset: Last week Position: other (global - respiratory problems) Quality: other (hx of COPD) Timing: other (persistent) Associated Symptoms: + cough, + chest pain, + SOB, + back pain, No fevers Note: Denies leg swelling or calf pain. Review of Systems See HPI for pertinent positives & negatives. A total of 10 systems reviewed and were otherwise negative. Past Medical & Surgical Medical Problems: (1) C. difficile diarrhea (2) COPD (chronic obstructive pulmonary disease) (3) Depressive disorder (4) Electrolyte abnormality (5) Fibromyalgia (6) History of tobacco use (7) Hyperlipidemia (8) Hypertension (9) Lumbar spondylosis (10) Nocturnal hypoxemia (11) Ovarian cyst (12) Weakness Surgical Problems: (1) H/O abdominoplasty (2) H/O reduction mammoplasty (3) H/o right knee cyst removal Family History Asthma MOTHER BROTHER FH: CAD (coronary artery disease) MOTHER ([place] age 70) BROTHER ([place] age 44) FH: cerebral aneurysm FATHER FH: suicide BROTHER (age 38) Social History Smoking Status: Former Smoker Drug Use: none Marital Status: in relationship Occupation Status: disabled Current/Historical Medications Scheduled Albuterol Hfa (Ventolin Hfa), 2 PUFFS INH Q4H Atenolol (Atenolol), 50 MG PO QAM Calcium Carbonate-Vitamin D W/ (Caltrate 600 Plus), 1 TAB PO DAILY Chlorthalidone ([place]yg[place]ton), 25 MG PO QAM Doxycycline Hyclate (Vibramycin), 100 MG PO BID Duloxetine HCl (Duloxetine HCl), 60 MG PO DAILY Famotidine (Famotidine), 20 MG PO BID Fluticasone Furoate-Vilanterol (Breo Ellipta), 1 DOSE INH QAM Fluticasone Propionate (Fluticasone Propionate), 2 SPRAYS CHRIS DAILY Home O2 Therapy (Oxygen), 2 LITERS NA HS Meloxicam (Mobic), 7.5 MG PO QAM Potassium Ext Rel (Klor-Con), 20 MEQ PO QAM Prednisone (Prednisone), 20 MG PO PRN UD Tiotropium [place] (Spiriva Handihaler), 1 CAP INH DAILY Scheduled PRN Clindamycin Phosphate (Topical (Clindamycin Phosphate), 1 APPLN TOP QPM PRN for IRRITATION Clobetasol Propionate (Clobetasol Propionate), 1 APPLN TOP 3XWK PRN for IRRITATION Allergies Coded Allergies: Ciprofloxacin (Verified Adverse Reaction, Intermediate, GI SYMPTOMS, ) Physical Exam Vital Signs Date Time Temp Pulse Resp B/P (MAP) Pulse Ox O2 Delivery O2 Flow Rate FiO2 09/06/17 15:05 65 18 109/71 95 09/06/17 14:09 63 14 113/64 96 Room Air 09/06/17 14:02 115/68 09/06/17 14:00 58 13 100 09/06/17 13:32 58 17 115/71 100 Nebulizer 09/06/17 13:08 53 14 96 Room Air 09/06/17 13:01 58 09/06/17 12:52 55 17 117/72 98 Room Air 09/06/17 12:50 98 Room Air 09/06/17 12:48 Room Air 93 09/06/17 12:40 36.3 57 20 130/81 95 Room Air Physical Exam GENERAL: Patient is well appearing and in mild distress. HEENT: No acute trauma, normocephalic atraumatic, mucous membranes moist, no nasal congestion, no scleral icterus. NECK: No stridor, no adenopathy, no meningismus, trachea is midline. LUNGS: Tight lung sounds bilaterally. Crackles throughout right lower lobe. Decreased breath sounds in right lower lobe. HEART: Regular rate and rhythm. No murmurs, rubs, gallops appreciated. ABDOMEN: Soft, nontender, bowel sounds positive, no masses appreciated, no peritonitis. BACK: No midline tenderness, no CVA tenderness EXTREMITIES: Normal motion all extremities, no cyanosis, no edema. NEUROLOGIC: Alert and oriented, no acute motor or sensory deficits, no focal weakness, cranial nerves grossly intact. SKIN: No rash, no jaundice, no diaphoresis. Medical Decision & Procedures ER Provider Diagnostic Interpretation: X ray results are stated below per my interpretation and the radiologist's interpretation. CHEST ONE VIEW PORTABLE CLINICAL HISTORY: Persistent Cough - RLL decreased breath sounds. COMPARISON STUDY: Chest radiograph March 15, 2017. FINDINGS: Lung volumes are normal. No pneumothorax or pleural effusion is noted. There is no consolidation to suggest pneumonia and there is no evidence for pulmonary edema. The cardiomediastinal silhouette is normal. IMPRESSION: No acute cardiopulmonary findings. Electronically signed by: Alexandre Ross M.D. 09/06/2017 1:20 PM Dictated Date/Time: 09/06/2017 1:19 PM Laboratory Results 09/06/17 13:05 Red Blood Count 4.45, Mean Corpuscular Volume 92.4, Mean Corpuscular Hemoglobin 32.4, Mean Corpuscular Hemoglobin Concent 35.0, Mean Platelet Volume 9.2, Neutrophils (%) (Auto) 86.3, Lymphocytes (%) (Auto) 9.1, Monocytes (%) (Auto) 4.3, Eosinophils (%) (Auto) 0.0, Basophils (%) (Auto) 0.0, Neutrophils # (Auto) 6.29, Lymphocytes # (Auto) 0.66, Monocytes # (Auto) 0.31, Eosinophils # (Auto) 0.00, Basophils # (Auto) 0.00 09/06/17 13:05 Test 09/06/17 13:05 White Blood Count 7.28 K/uL (4.8-10.8) Red Blood Count 4.45 M/uL (4.2-5.4) Hemoglobin 14.4 g/dL (12.0-16.0) Hematocrit 41.1 % (37-47) Mean Corpuscular Volume 92.4 fL (80-100) Mean Corpuscular Hemoglobin 32.4 pg (25-34) Mean Corpuscular Hemoglobin Concent 35.0 g/dl (32-36) Platelet Count 276 K/uL (130-400) Mean Platelet Volume 9.2 fL (7.4-10.4) Neutrophils (%) (Auto) 86.3 % Lymphocytes (%) (Auto) 9.1 % Monocytes (%) (Auto) 4.3 % Eosinophils (%) (Auto) 0.0 % Basophils (%) (Auto) 0.0 % Neutrophils # (Auto) 6.29 K/uL (1.4-6.5) Lymphocytes # (Auto) 0.66 K/uL (1.2-3.4) Monocytes # (Auto) 0.31 K/uL (0.11-0.59) Eosinophils # (Auto) 0.00 K/uL (0-0.5) Basophils # (Auto) 0.00 K/uL (0-0.2) RDW Standard Deviation 42.7 fL (36.4-46.3) RDW Coefficient of Variation 12.6 % (11.5-14.5) Immature Granulocyte % (Auto) 0.3 % Immature Granulocyte # (Auto) 0.02 K/uL (0.00-0.02) D-Dimer 370 ug/L FEU (0-500) Anion Gap 9.0 mmol/L (3-11) Est Creatinine Clear Calc Drug Dose 73.6 ml/min Estimated GFR () 90.4 Estimated GFR (Non- 78.0 BUN/Creatinine Ratio 15.5 (10-20) Calcium Level 9.5 mg/dl (8.5-10.1) Total Creatine Kinase 46 U/L (26-192) Creatine Kinase MB 0.9 ng/ml (0.5-3.6) Creatine Kinase MB Ratio 2.0 (0-3.0) Troponin I < 0.015 ng/ml (0-0.045) Laboratory results as reviewed by me. Medications Administered Medications (Trade) Dose Ordered Sig/Patricia Route Start Time Stop Time Status Last Admin Dose Admin Sodium Chloride 500 ml @ 999 mls/hr Q31M STAT IV 09/06/17 12:55 09/06/17 13:25 DC 09/06/17 12:55 999 MLS/HR Albuterol/ Ipratropium (Duoneb) 12 ml ONE ONCE INH 09/06/17 13:00 09/06/17 13:01 DC 09/06/17 13:11 12 ML Dexamethasone Sodium Phosphate (Dexamethasone Inj Pf) 10 mg NOW ONCE IV 09/06/17 14:30 09/06/17 14:31 DC 09/06/17 14:33 10 MG ECG Indication: SOB/dyspnea Rate (beats per minute): 52 Rhythm: sinus bradycardia Findings: no acute ischemic change, no ectopy Change: EKG: Electrocardiogram per my interpretation. ED Course 1247: The patient was evaluated in room C4. A complete history and physical exam was performed. 1423: Reevaluated the patient and she is feeling much better and her lungs are completely clear. She will use her nebulizers at home and will follow-up closely with her PCP. Discussed results and discharge instructions: she verbalized understanding and agreement. The patient is ready for discharge. Medical Decision Differential: Infectious, Reactive Airway Disease, Pneumonia, Pneumothorax, COPD , CHF, ACS, Pulmonary Embolism, MSK, GI, Dissection, amongst other etiologies entertained. 67 yr old female with 1 week URI symptoms resulting in worsening of her COPD. Currently on doxy and steroids. CXR unremarkable. Labs good. Dimer wnl without hypoxia, tachycardia, nor hypotension nor peristent SHOB thus I feel CT PE not indicated. WBC OK and I do not feel she is septic. Given hour neb with resolution of symptoms (O2 sats mid 90s after this likely vq mismatch as completely comfortable with normal lung exam). She he PCP follow up, as well as CT Chest already planned for next few days. She was given dose Decadron IV to further help with her copd exacerbation and will continue her outpatient steroid rx. Reviewed symptoms requiring RTED. I do not feel this is ACS as EKG /Trop negative with 1 week of symptoms. Medication Reconcilliation Current Medication List: was personally reviewed by me Blood Pressure Screening Patient's blood pressure: Elevated blood pressure Blood pressure disposition: Elevated BP felt to be situational Impression Primary Impression: COPD (chronic obstructive pulmonary disease) Additional Impression: Persistent cough Scribe Attestation The scribe's documentation has been prepared under my direction and personally reviewed by me in its entirety. I confirm that the note above accurately reflects all work, treatment, procedures, and medical decision making performed by me. Departure Information Dispostion Home / Self-Care Referrals Sukhwinder Littlejohn M.D. (PCP) Patient Instructions [facility] Additional Instructions Follow closely with your primary care provider. Finish your antibiotics and steroids as planned. Keep appointment for CT Scanning. Return if worsening breathing, chest pain, passing out, weakness or other concerns. Problem Qualifiers
[2017-09-06] MEDS ORDERED: SODIUM CHLORIDE 0.9% 500ML 500 ML IV STA (12:55)
[2017-09-06] MEDS ORDERED: ALBUT/IPRATROP 3MG/0.5MG NEB 3 ML VIAL INH ONE (13:00)
[2017-09-06 13:08] VITALS: PULSE 53; O2SAT 96
--- NOTE | 2017-09-06 13:21 | DIAGNOSTIC IMAGING REPORT ---
CHEST ONE VIEW PORTABLE CLINICAL HISTORY: Persistent Cough - RLL decreased breath sounds. COMPARISON STUDY: Chest radiograph March 15, 2017. FINDINGS: Lung volumes are normal. No pneumothorax or pleural effusion is noted. There is no consolidation to suggest pneumonia and there is no evidence for pulmonary edema. The cardiomediastinal silhouette is normal. IMPRESSION: No acute cardiopulmonary findings. Electronically signed by: Alexandre Ross M.D. 09/06/2017 1:20 PM Dictated Date/Time: 09/06/2017 1:19 PM
[2017-09-06 13:36] LABS: HEMATOCRIT 41.1 % (37-47); HEMOGLOBIN 14.4 g/dL (12.0-16.0); IG# 0.02 K/uL (0.00-0.02); LYMPH % 9.1 %; LYMPH ABS # 0.66 K/uL (1.2-3.4); MEAN CELL VOLUME 92.4 fL (80-100); MEAN CORPUSCULAR HEMOGLOBIN 32.4 pg (25-34); MEAN PLATELET VOLUME 9.2 fL (7.4-10.4); MONO % 4.3 %; MONO ABS # 0.31 K/uL (0.11-0.59); NEUT % 86.3 %; NEUT ABS # 6.29 K/uL (1.4-6.5); PLATELET COUNT 276 K/uL (130-400); RED CELL DISTRIBUTION WIDTH CV 12.6 % (11.5-14.5); RED CELL DISTRIBUTION WIDTH SD 42.7 fL (36.4-46.3); WHITE BLOOD COUNT 7.28 K/uL (4.8-10.8)
[2017-09-06] MEDS ORDERED: MELO7.5T5 PO (13:45)
[2017-09-06] MEDS ORDERED: VNTHFA/IN INH (13:45)
[2017-09-06] MEDS ORDERED: POTA20TA16 PO (13:45)
[2017-09-06] MEDS ORDERED: TNR50 PO (13:45)
[2017-09-06] MEDS ORDERED: HYG/25 PO (13:45)
[2017-09-06] MEDS ORDERED: FAMO1TAB47 PO (13:45)
[2017-09-06] MEDS ORDERED: DOXY100C2 PO (13:46)
[2017-09-06 13:55] LABS: BLOOD UREA NITROGEN 12 mg/dl (7-18); CALCIUM 9.5 mg/dl (8.5-10.1); CARBON DIOXIDE 29 mmol/L (21-32); CREATININE 0.79 mg/dl (0.60-1.20); GLUCOSE 104 mg/dl (70-99); POTASSIUM 3.4 mmol/L (3.5-5.1); SODIUM 140 mmol/L (136-145)
[2017-09-06 14:00] LABS: CKMB 0.9 ng/ml (0.5-3.6)
[2017-09-06] MEDS ORDERED: DEXAMETHASONE **PF** INJ 10 MG/ML VIAL IV ONE (14:30)
[2017-09-06 15:05] VITALS: BP 109/71; PULSE 65; O2SAT 95
== END 2017-09-06 14:59 | disposition home or self-care (01) ==
LOC: C.EDB 12:39 → C.EDC 14:59
DX: J44.9 Chronic obstructive pulmonary disease, unspecified (principal); F32.9 Major depressive disorder, single episode, unspecified; M79.7 Fibromyalgia; Z87.891 Personal history of nicotine dependence; Z82.49 Family history of ischemic heart disease and other diseases of the circulatory system; Z79.899 Other long term (current) drug therapy

== ENCOUNTER → 2018-03-08 | Day surgery (SDC) | payer OTHER ==
[2018-03-03 12:15] VITALS: Ht 165.1 cm; Wt 80.9 kg
[~2018-03-08] VITALS: Ht 165.1 cm; Wt 80.9 kg
[~2018-03-08] MED LIST changes: +ACET1TAB84 PO; -AMOX1TAB43 PO; -CELE1CAP28 PO; -CLIN1GEL5 TOP; -CLOB1SHA TOP; +FAMO1TAB47 PO; -FAMO20TA9 PO; +HYG/25 PO; +LIDOCAINE HCL 2% 2 ML VIAL (20MG/ML) ONE; -LRS20 PO; +POTA-639 PO; +PRLSR20 PO; -PROAIR INH; +PROPOFOL IV EMULSION 10 MG/ML 20 ML VIAL ONE; +SODIUM CHLORIDE 0.9% 500ML 500 ML IV ONE; +TNR50 PO; -VNCS125 PO; +VNTHFA/IN INH
--- NOTE | 2018-03-08 09:52 | Endo History and Physical ---
History & Physical Date of Service: Mar 08, 2018. Chief Complaint: chest pressure, heartburn Referring Physician: Dr. Littlejohn History of Present Illness pt with heartburn Past Medical History Hypertension, COPD Past Surgical History Hx Cardiac Surgery: No Hx Abdominal Surgery: Yes (ABDOMINOPLASTY/REUCTION MAMMOPLASTY/EXCESS SKIN,GB SURG) Hx of Implantable Prosthesis: No Hx Post-Op Nausea and Vomiting: Yes (PONV X 1) Hx Cancer Surgery: No Hx Thoracic Surgery: Yes (BRONCHOSCOPY) Hx Orthopedic: Yes (R KNEE CYSTECTOMY,LUMBAR EPIDURALS X 2) Hx Urinary Tract Surgery: No Family History None Social History Smoking Status: Former Smoker Hx Substance Use: No Hx Alcohol Use: No Allergies Coded Allergies: Montelukast (Verified Allergy, Unknown, NERVOUSNESS, 03/08/18) Ciprofloxacin (Verified Adverse Reaction, Intermediate, GI SYMPTOMS, ) Current Medications Reported Home Medications Medications Dose Route/Sig Max Daily Dose Days Date Category Dose Instructions Tylenol Arthritis Ext Rel (Acetaminophen) 650 Mg Cplt 650-1,300 Mg PO Q8H PRN 03/03/18 Reported Prilosec (Omeprazole) 20 Mg Capcr 20 Mg PO QAM 03/03/18 Reported Klor-Con (Potassium Chloride) 20 Meq Tabcr 20 Meq PO QAM PRN 09/06/17 Reported ONLY TAKE NEEDED WITH CHLORTHALIDONE [place] (Chlorthalidone) 25 Mg Tab 25 Mg PO QAM PRN 09/06/17 Reported ONLY TAKE NEEDED WITH POTASSIUM Atenolol 50 Mg Tab 50 Mg PO QAM 09/06/17 Reported Ventolin Hfa (Albuterol) 200 Puffs/39158 Mcg Aers 2 Puffs INH Q4H 09/06/17 Reported Famotidine 20 Mg Tab 20 Mg PO HS 09/06/17 Reported PRN AM ALSO Caltrate 600 Plus (Calcium Carbonate-Vitamin D W/) 1 Tab Tab 1 Tab PO QAM 03/01/17 Reported Fluticasone Propionate 120 Sprays/6000 Mcg Inha 2 Sprays CHRIS QAM 03/01/17 Reported Prednisone 20 Mg Tab 20 Mg PO PRN UD 03/01/17 Reported Duloxetine HCl 60 Mg Cap 60 Mg PO QAM 03/01/17 Reported Spiriva Handihaler (Tiotropium [place]) 30 Puff/540 Mcg Aerp 1 Cap INH QAM 03/01/17 Reported Oxygen Gas 2 Liters NA HS 01/16/16 Reported Breo Ellipta (Fluticasone Furoate-Vilanterol) 1 Inh Inh 1 Dose INH QAM 01/16/16 Reported Vital Signs Weight (Kilograms): 80.91 Height (Feet): 5 Height (Inches): 5 Date Time Temp Pulse Resp B/P (MAP) Pulse Ox O2 Delivery O2 Flow Rate FiO2 03/08/18 09:46 36.5 56 18 109/71 (84) 97 Room Air Physical Exam General Appearance: no apparent distress Respiratory/Chest: Auscultation: breath sounds normal Cardiovascular: Heart Auscultation: RRR Abdomen: Inspection & Palpation: soft Liver: non-tender Assessment and Plan stable for EGD
--- NOTE | 2018-03-08 10:17 | Discharge Instructions ---
Endoscopy Patient Instructions Date / Procedure(s) Performed Mar 08, 2018. EGD Allergy Information Coded Allergies: Montelukast (Verified Allergy, Unknown, NERVOUSNESS, 03/08/18) Ciprofloxacin (Verified Adverse Reaction, Intermediate, GI SYMPTOMS, ) Discharge Date / Findings Mar 08, 2018. small gastric ulcers. Provider Instructions Activity Restrictions - No exercising or heavy lifting for 24 hours. - Do not drink alcohol the day of the procedure. - Do not drive a car or operate machinery until the day after the procedure. - Do not make any important decisions or sign important papers in 24 hours after the procedure. Following Day: - Return to full activity which may include returning to work/school. Diet Start your diet with liquids and light foods (jello, soup, juice, toast). Then eat your usual diet if not nauseated. Treatment For Common After Affects For mild abdominal pain, bloating, or excessive gas: - Rest - Eat lightly - Lie on right side Follow-Up Information Follow-up with Dr. Littlejohn as scheduled Anesthesia Information What You Should Know You have had a procedure that required some medicine to reduce anxiety and discomfort. This treatment is called moderate sedation. After receiving the treatment, you may be sleepy, but you will be able to breathe on your own. The effects of the treatment may last for several hours. Follow these instructions along with Activity/Diet recommendations noted above: * Do NOT do anything where dizziness or clumsiness would be dangerous. * Rest quietly at home today, then you can be up and about tomorrow. * Have a responsible person stay with you the rest of today. * You may have had an I.V. today. If so, you may take the dressing off later today. Recommendations Call your doctor if: * Trouble breathing * Continuous vomiting for more than 24 hours * Temperature above 101 degrees * Severe abdominal pain or bloating * Pain not relieved by pain medicine ordered * There is increased drainage or redness from any incision * A large amount of rectal bleeding greater than 2-3 tablespoons. (If you had a polyp/s removed or have hemorrhoids, a small amount of blood - from the rectum is to be expected.) * You have any unanswered questions or concerns. IN THE EVENT OF A SERIOUS EMERGENCY, GO TO THE NEAREST EMERGENCY ROOM Your discharge instructions were prepared by provider Diallo Weiss. Patient Instructions Signature Page Maria G Walters Patient (or Guardian) Signature/Date: I have read and understand the instructions given to me by my caregivers. Caregiver/RN/Doctor Signature/Date: The above-named patient and/or guardian has received patient instructions on this date. + Original Patient Signature Page (only) stays with chart. Please make copy for patient.
[2018-03-08 10:50] VITALS: BP 112/72; PULSE 56; O2SAT 97
--- NOTE | 2018-03-08 11:14 | GI REPORT ---
Patient Name: Maria G Walters Procedure Date: 03/08/2018 10:08 AM Date of : 1950 Admit Type: Outpatient Age: 67 Gender: Female Attending MD: Diallo Weiss MD Procedure: Upper GI endoscopy Providers: Diallo Weiss MD Referring MD: Sukhwinder Torres Indications: Epigastric abdominal pain, Heartburn Medicines: See the Anesthesia note for documentation of the administered medications Complications: No immediate complications. Estimated Blood Loss: Estimated blood loss was minimal. Procedure: Pre-Anesthesia Assessment: - Prior to the procedure, a History and Physical was performed, and patient medications, allergies and sensitivities were reviewed. The patient's tolerance of previous anesthesia was reviewed. - The risks and benefits of the procedure and the sedation options and risks were discussed with the patient. All questions were answered and informed consent was obtained. - Patient identification and proposed procedure were verified prior to the procedure by the physician and the nurse. The procedure was verified in the pre-procedure area. - Pre-procedure physical examination revealed no contraindications to sedation. - After reviewing the risks and benefits, the patient was deemed in satisfactory condition to undergo the procedure. After obtaining informed consent, the endoscope was passed under direct vision. Throughout the procedure, the patient's blood pressure, pulse, and oxygen saturations were monitored continuously. The scope was introduced through the mouth, and advanced to the third part of duodenum. The upper GI endoscopy was accomplished without difficulty. The patient tolerated the procedure well. Findings: The esophagus was normal. Few non-bleeding superficial gastric ulcers with no stigmata of bleeding were found in the gastric antrum. Biopsies were taken with a cold forceps for Helicobacter pylori testing. Verification of patient identification for the specimen was done by the physician and nurse using the patient's name and medical record number. Estimated blood loss was minimal. The examined duodenum was normal. The cardia and gastric fundus were normal on retroflexion. Impression: - Normal esophagus. - Non-bleeding gastric ulcers with no stigmata of bleeding. Biopsied. - Normal examined duodenum. Recommendation: - Await pathology results. - Patient needs to minimize NSAID use. - Continue PPI. - Discharge patient to home. Diallo Weiss M.D. Diallo Weiss MD 03/08/2018 11:13:31 AM This report has been signed electronically. Note Initiated On: 03/08/2018 10:08 AM Number of Addenda: 0 I attest to the content of the Intraoperative Record and orders documented therein, exceptions below {[id number]}
--- NOTE | 2018-03-08 11:29 | Anesthesiology Progress Note ---
Anesthesia Post Op Note Date & Time Mar 08, 2018 at 11:29 Vital Signs Pain Intensity: 0 Vital Signs Past 12 Hours Date Time Temp Pulse Resp B/P (MAP) Pulse Ox O2 Delivery O2 Flow Rate FiO2 03/08/18 10:50 56 18 112/72 (85) 97 Room Air 03/08/18 10:35 56 18 107/72 (84) 95 Room Air 03/08/18 10:20 36.5 61 16 99/65 (76) 98 Room Air 03/08/18 09:46 36.5 56 18 109/71 (84) 97 Room Air Notes Mental Status: alert / awake / arousable, participated in evaluation Pt Amnestic to Procedure: Yes Nausea / Vomiting: adequately controlled Pain: adequately controlled Airway Patency, RR, SpO2: stable & adequate BP & HR: stable & adequate Hydration State: stable & adequate Anesthetic Complications: no major complications apparent
== END | disposition home or self-care (01) ==
LOC: C.GI 08:54
PROVIDERS: ATTEND Internal Medicine Gastroenterology
DX: R10.13 Epigastric pain (principal); K21.9 Gastro-esophageal reflux disease without esophagitis; K25.9 Gastric ulcer, unspecified as acute or chronic, without hemorrhage or perforation; I10 Essential (primary) hypertension; K44.9 Diaphragmatic hernia without obstruction or gangrene; M79.7 Fibromyalgia; F32.9 Major depressive disorder, single episode, unspecified; M19.90 Unspecified osteoarthritis, unspecified site; Z88.1 Allergy status to other antibiotic agents

== ENCOUNTER 2022-05-11 11:31 | Observation (INO) ==
[2022-05-11] MEDS ORDERED: methylPREDNISolone 125 MG/2 ML VIAL IV STA (12:02)
[2022-05-11] MEDS ORDERED: ALBUT/IPRATROP 3MG/0.5MG NEB 3 ML VIAL NEB STA ×2 (12:02→12:53)
--- NOTE | 2022-05-11 12:09 | Emergency Department Note ---
History of Present Illness General Chief complaint: Shortness of Breath/Dyspnea Stated complaint: SOB,CHEST PAIN INTO BACK Time Seen by Provider: 05/11/22 11:45 Source: patient Mode of arrival: ambulatory Limitations: no limitations History of Present Illness Maximum Pain Intensity: 7 This Patient is 71-year-old female has a history of COPD. She is had increasing shortness of breath over the last 4 days beyond her baseline she started steroids 4 days ago she has been using her rescue inhaler and nebs. She is f eels like she is not getting her normal nebs in because she is too short of breath. She feels like she is congested and tries to cough things up but cannot. This is caused some tightness in her chest and back. She is had no fever no fall no blood or melena stool no abdominal pain she has chronic lower extremity edema that is trace and unchanged. She is followed by Dr. Jimenez. She wears oxygen 2 L and a half at night that is not increased. No history of blood clots. No cardiac Disease. While she has normal O2 sats here she said it went down to 85 at home when she was walking her dog and she got very short of breath Home Medications Medication Instructions Recorded Confirmed Type albuterol sulfate 90 mcg/actuation 1 puff inhalation DIRECTED PRN 09/23/19 10/08/21 History aerosol inhaler (ProAir HFA) COPD cholecalciferol (vitamin D3) 25 25 mcg PO QAM 09/23/19 10/08/21 History mcg (1,000 unit) capsule (Vitamin D3) duloxetine 60 mg capsule,delayed 60 mg PO QAM 09/23/19 10/08/21 History release (Cymbalta) guaifenesin 600 mg tablet, 600 mg PO DIRECTED PRN TO THIN 09/23/19 10/08/21 History extended release 12 hr (Mucinex) MUCOUS omeprazole 20 mg tablet,delayed 20 mg PO QAM 09/23/19 10/08/21 History release albuterol sulfate 2.5 mg/0.5 mL 2.5 mg inhalation DIRECTED PRN 12/10/20 10/08/21 History solution for nebulization COPD fluticasone propionate 50 1 spray intranasal UD PRN ALLERGIES 12/10/20 10/08/21 History mcg/actuation nasal spray,suspension (Flonase Allergy Relief) vitamin B complex 1 cap PO DAILY 12/10/20 10/08/21 History mupirocin 2 % topical ointment 1 applic topical DIRECTED PRN 01/08/21 10/08/21 History Skin Irritation clotrimazole 10 mg zaid 10 mg mucous membrane TID PRN FLUSH 10/08/21 10/08/21 History fluticasone fur. 200 mcg-umeclid 1 inh inhalation DAILY 10/08/21 10/08/21 History 62.5 mcg-vilant 25 mcg inhalat.powder (Trelegy Ellipta) Allergies Allergy/AdvReac Type Severity Reaction Status Date / Time ciprofloxacin AdvReac Intermediate NAUSEA/VOMI Verified 10/08/21 16:23 TING montelukast AdvReac Intermediate Anxiety Verified 10/08/21 16:23 Past Med/Surg History Medical History Anxiety Asthma "possibly", PT UNSURE COPD (chronic obstructive pulmonary disease) rare res. inh use > last exac over a year Depression GERD (gastroesophageal reflux disease) HTN (hypertension) no meds for this Hx of Clostridium difficile infection OVER 3 YRS AGO Lumbar spondylosis On home O2 2LPM AT HS Osteoarthritis Osteoporosis Ovarian cyst Surgical History History of cholecystectomy History of colonoscopy History of nasal surgery History of removal of cyst knee History of removal of cyst nose & tonsils - Dr. Abreu on 12/27/20 History of tooth extraction Hx of abdominoplasty Hx of breast reduction, elective S/P bronchoscopy HX Family History Family/Other Allergies Asthma Other No pertinent family history Social History Smoking Status: Former smoker Tobacco Type: Cigarettes Second Hand Exposure: Yes; Hx Alcohol Use: No Hx Substance Use: No Preferred Language: Angolan Communication Ability: Effective Personal Service Workers Required: No Beliefs That Will Affect Care: None Current Living Situation: Alone Feels Safe at Home: Yes Assistive Devices: Glasses and Oxygen - at Night Review of Systems A total of 10 systems reviewed and were otherwise negative Physical Exam Vital Signs Vital Signs - 24 hr 05/11/22 11:35 05/11/22 11:42 05/11/22 11:45 Temperature 37.0 C Temperature Source Temporal Artery Scan Pulse Rate 77 Pulse Rate [Apical] Respiratory Rate 18 Respiratory Effort / Characteristics Spontaneous Respiratory Depth Shallow Respiratory Pattern Regular Blood Pressure 148/100 H Blood Pressure [Right Arm] Blood Pressure Mean 116 Blood Pressure Mean [Right Arm] Blood Pressure Position Sitting Pulse Oximetry 96 94 Oxygen Delivery Method Room Air Room Air Room Air Sepsis Recent Fever Within 48 Hours No Sepsis New/Unexplained Change in Mental Status No Sepsis Action Taken by Nursing No Action Required 05/11/22 12:01 05/11/22 12:34 05/11/22 12:59 Temperature Temperature Source Pulse Rate Pulse Rate [Apical] 72 Respiratory Rate 20 Respiratory Effort / Characteristics Respiratory Depth Respiratory Pattern Blood Pressure Blood Pressure [Right Arm] 122/76 Blood Pressure Mean Blood Pressure Mean [Right Arm] 91 Blood Pressure Position Pulse Oximetry 94 93 89 L Oxygen Delivery Method Room Air Room Air Room Air Sepsis Recent Fever Within 48 Hours Sepsis New/Unexplained Change in Mental Status Sepsis Action Taken by Nursing General: Well developed well nourished older female who appears in no acute distress, breathing comfortably on room air. Normal speech HEENT: Normal cephalic atraumatic. Pupils are equal round and reactive to light. Extraocular movements are intact. Oropharynx is pink with moist mucous membranes. No swelling of the mouth lips or tongue. Neck: Supple with a midline trachea. No meningeal signs or stiffness, no JVD or bruits. No Stridor. Chest: Slightly coarse sounding but clear to auscultation bilaterally. No w heezes or rhonchi. No increased work of breathing. Heart: Regular rate and rhythm without murmurs or gallops. Abdomen: Soft nontender, nondistended without rebound guarding or rigidity. Extremities: No cyanosis clubbing or edema. No calf tenderness or assymetry Spine/Back. Non tender to palpation. No CVA tenderness Skin: Good turgor without rashes. Neurologic exam: Cranial nerves two through 12 are intact. Motor and sensation are intact and symmetrical throughout. Course Administered Medications Discontinued Medications Albuterol (Albut/Ipratrop 3mg/0.5mg Neb 3 Ml Vial) 3 ml NEB NOW STA; Protocol Stop: 05/11/22 12:03 Last Admin: 05/11/22 12:12 Dose: 3 ml Documented By: JY Albuterol (Albut/Ipratrop 3mg/0.5mg Neb 3 Ml Vial) 3 ml NEB NOW STA; Protocol Stop: 05/11/22 12:54 Last Admin: 05/11/22 13:05 Dose: 3 ml Documented By: KUN Methylprednisolone (Methylprednisolone 125 Mg/2 Ml Vial) 125 mg IV NOW STA Stop: 05/11/22 12:03 Last Admin: 05/11/22 12:12 Dose: 125 mg Documented By: JUAN Medical Decision Making Differential Diagnosis COPD exacerbation, infection, pneumothorax, cardiac disease, CHF, PE, infection, COVID, electrolyte or metabolic abnormality, anemia Medical Records Attestation: I reviewed the patient's medical records. Home Medications Current Medication List: was personally reviewed by me Laboratory Data Attestation: I reviewed the patient's lab results. Result diagrams: 05/11/22 11:55 05/11/22 11:55 Lab Results 05/11/22 05/11/22 05/11/22 Range/Units 11:55 11:55 11:55 WBC 7.87 (4.8-10.8) K/ul RBC 3.84 L (3.93-5.22) M/uL Hgb 12.8 (12.0-16.0) g/dl Hct 37.5 (34.1-44.9) % MCV 97.7 (80.0-100.0) fL MCH 33.3 (25.0-34.0) pg MCHC 34.1 (32.0-36.0) g/dL RDW Std Deviation 45.1 (36.4-46.3) fL RDW Coeff of Nubia 12.6 (11.5-14.5) % Plt Count 281 (130-400) K/uL MPV 8.7 L (9.4-12.3) fL Immature Gran % (Auto) 0.3 % Neut % (Auto) 90.2 % Lymph % (Auto) 5.7 % Mcintosh % (Auto) 3.4 % Eos % (Auto) 0.1 % Baso % (Auto) 0.3 % Neut # (Auto) 7.10 H (1.4-6.5) K/uL Lymph # (Auto) 0.45 L (1.2-3.4) K/uL Mcintosh # (Auto) 0.27 (0.24-0.82) K/uL Eos # (Auto) 0.01 (0-0.50) K/uL Baso # (Auto) 0.02 (0-0.2) K/uL Immature Gran # (Auto) 0.02 (0.00-0.02) K/uL PT 10.4 (9.0-12.0) Seconds INR 1.0 (0.9-1.1) APTT 23.9 (21.0-31.0) Seconds PTT Ratio 0.9 D-Dimer 400 (0-500) ug/L FEU Sodium 140 (136-145) mmol/L Potassium 4.5 (3.5-5.1) mmol/L Chloride 106 (98-107) mmol/L Carbon Dioxide 26 (21-32) mmol/L Anion Gap 8 (3-11) BUN 19 (6-23) mg/dl Creatinine 0.96 (0.6-1.2) mg/dl Est Cr Clr Drug Dosing 56.1 ml/min Est GFR ( Amer) 69.4 ml/min Est GFR (Non-Af Amer) 59.9 ml/min BUN/Creatinine Ratio 19.8 (10-20) Glucose 106 H (70-99(Fasting)) mg/dl Calcium 9.5 (8.5-10.1) mg/dl Total Bilirubin 0.4 (0.2-1.0) mg/dl AST 17 (13-39) U/L ALT 21 (7-52) U/L Alkaline Phosphatase 51 (34-104) U/L Troponin I High Sens 3.2 (0-14) pg/ml Total Protein 6.0 (6.0-8.3) gm/dl Albumin 3.9 (3.4-5.0) gm/dl Globulin 2.1 L (2.5-4.0) gm/dl Albumin/Globulin Ratio 1.9 (0.9-2) Lipase 89 H (11-82) U/L SARS-CoV-2 (PCR) (Negative) Influenza Type A (PCR) (Neg) Influenza Type B (PCR) (Neg) RSV (RT-PCR) (Neg) 05/11/22 Range/Units 12:18 WBC (4.8-10.8) K/ul RBC (3.93-5.22) M/uL Hgb (12.0-16.0) g/dl Hct (34.1-44.9) % MCV (80.0-100.0) fL MCH (25.0-34.0) pg MCHC (32.0-36.0) g/dL RDW Std Deviation (36.4-46.3) fL RDW Coeff of Nubia (11.5-14.5) % Plt Count (130-400) K/uL MPV (9.4-12.3) fL Immature Gran % (Auto) % Neut % (Auto) % Lymph % (Auto) % Mcintosh % (Auto) % Eos % (Auto) % Baso % (Auto) % Neut # (Auto) (1.4-6.5) K/uL Lymph # (Auto) (1.2-3.4) K/uL Mcintosh # (Auto) (0.24-0.82) K/uL Eos # (Auto) (0-0.50) K/uL Baso # (Auto) (0-0.2) K/uL Immature Gran # (Auto) (0.00-0.02) K/uL PT (9.0-12.0) Seconds INR (0.9-1.1) APTT (21.0-31.0) Seconds PTT Ratio D-Dimer (0-500) ug/L FEU Sodium (136-145) mmol/L Potassium (3.5-5.1) mmol/L Chloride (98-107) mmol/L Carbon Dioxide (21-32) mmol/L Anion Gap (3-11) BUN (6-23) mg/dl Creatinine (0.6-1.2) mg/dl Est Cr Clr Drug Dosing ml/min Est GFR ( Amer) ml/min Est GFR (Non-Af Amer) ml/min BUN/Creatinine Ratio (10-20) Glucose (70-99(Fasting)) mg/dl Calcium (8.5-10.1) mg/dl Total Bilirubin (0.2-1.0) mg/dl AST (13-39) U/L ALT (7-52) U/L Alkaline Phosphatase (34-104) U/L Troponin I High Sens (0-14) pg/ml Total Protein (6.0-8.3) gm/dl Albumin (3.4-5.0) gm/dl Globulin (2.5-4.0) gm/dl Albumin/Globulin Ratio (0.9-2) Lipase (11-82) U/L SARS-CoV-2 (PCR) NEGATIVE (Negative) Influenza Type A (PCR) Negative (Neg) Influenza Type B (PCR) Negative (Neg) RSV (RT-PCR) Negative (Neg) Imaging Data Attestation: I personally reviewed and interpreted this imaging study as follows: My Impression: Chest x-rayno acute infiltrate, failure, pneumothorax seen Radiologist's Impression: Chest X-Ray 05/11/22 12:01 XR chest 1V portable HISTORY: 71 years-old Female Chest Pain . Acute chest pain COMPARISON: Chest radiograph 10/08/2021 TECHNIQUE: Portable AP view of the chest FINDINGS: Eventration of the right hemidiaphragm. The cardiomediastinal and hilar si lhouettes are within normal limits. No pneumothorax or large pleural effusion. Chronic interstitial coarsening of the lung bases. Degenerative changes of the shoulders and spine. IMPRESSION: No acute process. ACT 112: Negative or not required by law. The above report was generated using voice recognition software. It may contain grammatical, syntax or spelling errors. Electronically signed by: Sin Soliz M.D. 05/11/2022 12:23 PM ECG Data Attestation: I personally reviewed and interpreted this ECG as follows: Indication: + SOB/dyspnea Rate (beats per minute): 70 Rhythm: + normal sinus ECG Intervals/blocks: + Normal QRS, + Normal QT and + Normal AL ECG [place]: + Normal ECG Findings: + Other (Poor R wave progression and possibly some new septal infarct changes at least in V1, V2 looks about the same.); no PACs or no PVCs MDM Narrative This patient comes in after having shortness of breath for a couple days she has a history of COPD. She has been using her usual treatments when she gets exacerbations and despite this she is not getting better. She feels short of breath and she says that the change in weather typically triggers her, she feels very congested. She has stable vital signs here although gets hypoxemic when she exerts herself she tells me. I did order a DuoNeb as well as IV Solu-Medrol while the work-up was being done. EKG, chest x-ray, multiple blood testing was obtained. Her chest x-ray shows no acute infiltrate, failure, pneumothorax seen. She has no white count or fever to suggest significant infection. She has no significant anemia. EKG may have some anterior changes but not acutely there is poor R wave progression and possibly a new Q wave at least in one lead but there is no ST segment elevation or T wave inversions. She has no other metabolic abnormalities. Her cardiac enzyme is negative. She has no signif icant electrolyte or metabolic abnormalities. He said the neb did not help her so I did order a second 1 while she does not appear to be in significant distress her O2 sat is 89% with a good waveform. Given her ongoing hypoxemia I do think she needs to be admitted/observed. Her D-dimer was negative which makes PE unlikely. I have consulted the [facility]. COVID testing was also negative. Continuous cardiac monitoring: Orders placed in EMR for continuous cardiac monitoring. Upon my interpretation, the patient noted to be normal sinus rhythm with a rate of 70 Impression & Plan Acute exacerbation of chronic obstructive pulmonary disease, Hypoxemia, SOB (shortness of breath), Lab test negative for COVID-19 virus Discharge Plan Visit Data Chief Complaint: Shortness of Breath/Dyspnea Stated Complaint: SOB,CHEST PAIN INTO BACK ED Provider: Tavares Mac Discharge Problem: Acute exacerbation of chronic obstructive pulmonary disease, Hypoxemia, SOB (shortness of breath), Lab test negative for COVID-19 virus Forms Stand Alone Forms: [facility] Prescriptions Prescriptions: No Action mupirocin 2 % ointment 1 applic topical DIRECTED PRN (Reason: Skin Irritation) albuterol sulfate [ProAir HFA] 90 mcg/actuation Hfa Aerosol Inhaler 1 puff INHALATION DIRECTED PRN (Reason: COPD) duloxetine [Cymbalta] 60 mg Capsule,Delayed Release(Dr/Ec) 60 mg PO QAM omeprazole 20 mg Tablet,Delayed Release (Dr/Ec) 20 mg PO QAM guaifenesin [Mucinex] 600 mg Tablet Extended Release 12hr 600 mg PO DIRECTED PRN (Reason: TO THIN MUCOUS) cholecalciferol (vitamin D3) [Vitamin D3] 25 mcg (1,000 unit) Capsule 25 mcg PO QAM vitamin B complex Capsule 1 cap PO DAILY fluticasone propionate [Flonase Allergy Relief] 50 mcg/actuation spray,suspension 1 spray INTRANASAL UD PRN (Reason: ALLERGIES) albuterol sulfate 2.5 mg/0.5 mL Solution For Nebulization 2.5 mg INHALATION DIRECTED PRN (Reason: COPD) Trelegy Ellipta 200-62.5-25 mcg blister with device 1 inh INHALATION DAILY clotrimazole 10 mg zaid 10 mg mucous membrane TID PRN (Reason: FLUSH) Referrals Referrals: Sukhwinder Littlejohn MD [Primary Care Provider] -
[2022-05-11 12:12] LABS: Hematocrit (blood only) 37.5 % (34.1-44.9); Hemoglobin 12.8 g/dl (12.0-16.0); Mean Corpuscular Hemoglobin 33.3 pg (25.0-34.0); Mean Corpuscular Hgb Conc 34.1 g/dL (32.0-36.0); Mean Corpuscular Volume 97.7 fL (80.0-100.0); Mean Platelet Volume 8.7 fL (9.4-12.3); Platelet Count 281 K/uL (130-400); RDW Coefficient of Variation 12.6 % (11.5-14.5); RDW Standard Deviation 45.1 fL (36.4-46.3); Red Blood Count 3.84 M/uL (3.93-5.22); White Blood Count 7.87 K/ul (4.8-10.8)
[2022-05-11 12:24] LABS: D Dimer 400 ug/L FEU (0-500); Partial Thromboplastin Ratio 0.9; Partial Thromboplastin Time 23.9 Seconds (21.0-31.0); Prothrombin Time 10.4 Seconds (9.0-12.0)
--- NOTE | 2022-05-11 12:24 | XRay Report ---
XR chest 1V portable HISTORY: 71 years-old Female Chest Pain . Acute chest pain COMPARISON: Chest radiograph 10/08/2021 TECHNIQUE: Portable AP view of the chest FINDINGS: Eventration of the right hemidiaphragm. The cardiomediastinal and hilar silhouettes are within normal limits. No pneumothorax or large pleural effusion. Chronic interstitial coarsening of the lung bases . Degenerative changes of the shoulders and spine. IMPRESSION: No acute process. ACT 112: Negative or not required by law. The above report was generated using voice recognition software. It may contain grammatical, syntax o r spelling errors. Electronically signed by: Sin Soliz M.D. 05/11/2022 12:23 PM
[2022-05-11 12:33] LABS: Albumin Globulin Ratio 1.9 (0.9-2); Albumin Level 3.9 gm/dl (3.4-5.0); BUN Creatinine Ratio 19.8 (10-20); Bilirubin,Total 0.4 mg/dl (0.2-1.0); Calcium 9.5 mg/dl (8.5-10.1); Creatinine Clr Calc Pharmacy 56.1 ml/min; Est GFR (African American) 69.4 ml/min; Est GFR (Non-African American) 59.9 ml/min; Globulin 2.1 gm/dl (2.5-4.0); Potassium 4.5 mmol/L (3.5-5.1)
[2022-05-11 12:39] LABS: Troponin I High Sensitivity 3.2 pg/ml (0-14)
--- NOTE | 2022-05-11 12:41 | Electrocardiogram Report ---
Test Reason : Blood Pressure : / mmHG Vent. Rate : 070 BPM Atrial Rate : 070 BPM P-R Int : 136 ms QRS Dur : 088 ms QT Int : 360 ms P-R-T Axes : 048 037 053 degrees QTc Int : 388 ms Normal sinus rhythm Incomplete right bundle branch block Abnormal ECG Confirmed by Max Stanford ([id number]) on 05/11/2022 12:41:07 PM Referred By: Confirmed By:Dakota Stanford
[2022-05-11 13:04] LABS: Influenza A virus by PCR Negative (Neg); Influenza B virus by PCR Negative (Neg); RSV by PCR Negative (Neg); SARS CoV2 RNA(COVID-19) InHosp NEGATIVE (Negative)
[2022-05-11 13:05] LABS: Basophils # (auto) 0.02 K/uL (0-0.2); Basophils % (auto) 0.3 %; Eosinophils # (auto) 0.01 K/uL (0-0.50); Eosinophils % (auto) 0.1 %; Immature Granulocytes # (auto) 0.02 K/uL (0.00-0.02); Immature Granulocytes % (auto) 0.3 %; Lymphocytes # (auto) 0.45 K/uL (1.2-3.4); Lymphocytes % (auto) 5.7 %; Monocytes # (auto) 0.27 K/uL (0.24-0.82); Monocytes % (auto) 3.4 %; Neutrophils % (auto) 90.2 %
[2022-05-11 14:23] LABS: Base Excess ABG 3.6 mEq/L (-9-1.8); HCO3 ABG 27 mmol/L (19-24); PCO2 ABG 34 mmHg (35-46); PO2 ABG 68 mmHg (80-95)
[2022-05-11 14:25] LABS: Allen Test Pos (Pos)
--- NOTE | 2022-05-11 14:58 | History & Physical Report ---
Date of Service May 11, 2022 Assessment & Plan (1) Acute exacerbation of chronic obstructive pulmonary disease: (2) Hypoxemia: Plan This is a 79-year-old female who has history of COPD, nocturnal hypoxemia on 2 L of O2 at at bedtime, HTN, HLD, fibromyalgia, depression with anxiety, hx of cdiff, history of tobacco abuse who presents to ED secondary to worsening shortness of breath x2 to 3 weeks. COPD Exacerbation Hypoxemia - Oxygen 88-91% on room air on admission Nocturnal Hypoxemia on 2L of O2 at HS Respiratory Alkalosis admit to tele under obs IV solumedrol 40mg BID IV levaquin (hx of cipro allergy n/v), recently took doxy as OP; therefore will administer via IV for now to avoid side effect aggressive pulmonary toilet with flutter valve, incentive spirometry, duonebs, muccinex O2 as needed and at HS continue breo, hold incruse while on duonebs follows [facility] Hx of HTN, HLD not on meds monitor Depression w/ anxiety continue cymbalta Gerd continue PPI DVT ppx: SQ Lovenox Dispo: med tele PCP: Annetta FULL CODE Pt was seen and examined in collaboration with Dr. Siddiqi, please see addendum History of Present Illness Chief Complaint: Worsening SOB x 2-3 weeks. Primary Care Provider: Sukhwinder Littlejohn MD This is a 79-year-old female who has history of COPD, nocturnal hypoxemia on 2 L of O2 at at bedtime, HTN, HLD, fibromyalgia, depression with anxiety, hx of cdiff, history of tobacco abuse who presents to ED secondary to worsening shortness of breath x2 to 3 weeks. She has known history of COPD and prior past history of smoking. She is no longer smoking. She has required hospitalization for COPD in past but it has been many years. She states over the last 2 to 3 weeks she has had notable increase in shortness of breath. It is becoming progressively worse and also present occasionally at rest. She had a wedding she wanted to attend yesterday and attended the wedding and opted to come for evaluation today. She has been using her home inhalers of Breo, Incruse and albuterol nebulizer without much improvement. She has also been using Mucinex. She feels very congested but unable to expectorate. Whenever she is able to expectorate she states mucus is yellow in nature. She denies any known sick contacts. She denies any fever, chills, sweats, lightheadedness, dizziness, chest pain, hemoptysis, palpitations, nausea, vomiting, abdominal pain, change in bowel or urinary habits. She does follow with [facility] pulmonology. In ED patient remained hemodynamically stable although oxygen saturations fluctuated between 88 and 91% on room air. Her chest x-ray was negative for acute abnormality. Her CBC and CMP was generally unremarkable. Her ABG did reveal a respiratory alkalosis. She received IV Solu-Medrol and 2 nebulizer treatments. She does feel minimally improved. She did take oral steroids at home without improvement. Approximately 2 weeks ago she also completed a course of doxycycline. Allergies Allergy/AdvReac Type Severity Reaction Status Date / Time ciprofloxacin AdvReac Intermediate NAUSEA/VOMI Verified 10/08/21 16:23 TING montelukast AdvReac Intermediate Anxiety Verified 10/08/21 16:23 Home Medications Medication Instructions Recorded Confirmed Type albuterol sulfate 90 mcg/actuation 1 puff inhalation DIRECTED PRN 09/23/19 05/11/22 History aerosol inhaler (ProAir HFA) COPD cholecalciferol (vitamin D3) 25 25 mcg PO QAM 09/23/19 05/11/22 History mcg (1,000 unit) capsule (Vitamin D3) duloxetine 60 mg capsule,delayed 60 mg PO QAM 09/23/19 05/11/22 History release (Cymbalta) guaifenesin 600 mg tablet, 600 mg PO DIRECTED PRN TO THIN 09/23/19 05/11/22 History extended release 12 hr (Mucinex) MUCOUS omeprazole 20 mg tablet,delayed 20 mg PO QAM 09/23/19 05/11/22 History release albuterol sulfate 2.5 mg/0.5 mL 2.5 mg inhalation DIRECTED PRN 12/10/20 05/11/22 History solution for nebulization COPD vitamin B complex 1 cap PO DAILY 12/10/20 05/11/22 History mupirocin 2 % topical ointment 1 applic topical DIRECTED PRN 01/08/21 05/11/22 History Skin Irritation clotrimazole 10 mg zaid 10 mg PO TID 10/08/21 05/11/22 History azelastine-fluticasone 137 mcg-50 1 spray intranasal BID 05/11/22 05/11/22 History mcg/spray nasal spray fluticasone furoate 200 1 inh inhalation DAILY 05/11/22 05/11/22 History mcg-vilanterol 25 mcg/dose inhalation powder (Breo Ellipta) umeclidinium 62.5 mcg/actuation 1 inh inhalation DAILY 05/11/22 05/11/22 History blister powder for inhalation (Incruse Ellipta) Past Med/Surg History Medical History Anxiety Asthma "possibly", PT UNSURE COPD (chronic obstructive pulmonary disease) rare res. inh use > last exac over a year Depression GERD (gastroesophageal reflux disease) HTN (hypertension) no meds for this Hx of Clostridium difficile infection OVER 3 YRS AGO Lumbar spondylosis On home O2 2LPM AT HS Osteoarthritis Osteoporosis Ovarian cyst Surgical History History of cholecystectomy History of colonoscopy History of nasal surgery History of removal of cyst knee History of removal of cyst nose & tonsils - Dr. Abreu on 12/27/20 History of tooth extraction Hx of abdominoplasty Hx of breast reduction, elective S/P bronchoscopy HX Family History Family/Other Allergies Asthma Other No pertinent family history Social History (Updated 05/11/22 @ 14:54 by Lara Rice PA-C) Smoking Status: Former smoker Tobacco Type: Cigarettes packs per day: 30; Years Smoked: 1; Smoking End Date: 2011; Second Hand Exposure: Yes; Hx Alcohol Use: Yes Alcohol type: hard liquor Alcohol Intake Frequency Comment: Special occasions Hx Substance Use: No Preferred Language: [place] Communication Ability: Effective Glass Setter Required: No Beliefs That Will Affect Care: None Current Living Situation: Alone Other Information That Helps Us Care for You: No Feels Safe at Home: Yes Safety Concerns: Feels Safe At This Time Assistive Devices: Glasses and Oxygen - at Night Review of Systems 2 Review of Systems: All systems reviewed & are unremarkable except as noted in HPI & below Physical Exam Physical Exam: Constitutional: WD/WN, vitals as above, NAD, sitting up in bed, pleasant, conversing easily Head: Normocephalic, Atraumatic Eyes: PERRL, conjunctivae normal, anicteric sclerae ENMT: external ear and nose normal, oropharynx normal Neck: trachea midline, no thyromegaly normal visual inspection Respiratory: normal respiratory effort, lungs clear to auscultation, no wheeze, rales, rhonchi. Normal insp/exp effort, no accessory muscle use Cardiovascular: RRR, no murmur, no edema Vessels: no JVD or carotid bruit Chest: normal inspection of chest Abdomen: normal bowel sounds, soft, nontender, no hepatosplenomegaly Musculoskeletal: no cyanosis or clubbing, extremities motor strength 5/5 Skin: no rashes, warm and dry normal turgor Neurologic: PERRL, EOMI, accommodation nl, no face palsy, no dysarthria CN's II-XI intact bilaterally and moves all extremities Psychiatric: A+Ox3, euthymic affect Lymphatic: no cervical or axillary lymphadenopathy : deferred Results & Data Results & Data ([facility]) Vital Signs (Past 12 Hours) Vital Signs Temp Pulse Pulse Resp BP BP Pulse Ox 05/11/22 12:59 89 L 05/11/22 12:34 72 20 122/76 93 05/11/22 12:01 94 05/11/22 11:45 94 05/11/22 11:42 05/11/22 11:35 37.0 C 77 18 148/100 H 96 O2 Del Method 05/11/22 12:59 Room Air 05/11/22 12:34 Room Air 05/11/22 12:01 Room Air 05/11/22 11:45 Room Air 05/11/22 11:42 Room Air 05/11/22 11:35 Room Air Diagnostic Findings Chest X-Ray 05/11/22 12:01 XR chest 1V portable HISTORY: 71 years-old Female Chest Pain . Acute chest pain COMPARISON: Chest radiograph 10/08/2021 TECHNIQUE: Portable AP view of the chest FINDINGS: Eventration of the right hemidiaphragm. The cardiomediastinal and hilar silhouettes are within normal limits. No pneumothorax or large pleural effusion. Chronic interstitial coarsening of the lung bases. Degenerative changes of the shoulders and spine. IMPRESSION: No acute process. ACT 112: Negative or not required by law. The above report was generated using voice recognition software. It may contain grammatical, syntax or spelling errors. Electronically signed by: Sin Soliz M.D. 05/11/2022 12:23 PM Medications Administered Medication List Discontinued Medications Albuterol (Albut/Ipratrop 3mg/0.5mg Neb 3 Ml Vial) 3 ml NEB NOW STA; Protocol Stop: 05/11/22 12:03 Last Admin: 05/11/22 12:12 Dose: 3 ml Documented By: JUAN Albuterol (Albut/Ipratrop 3mg/0.5mg Neb 3 Ml Vial) 3 ml NEB NOW STA; Protocol Stop: 05/11/22 12:54 Last Admin: 05/11/22 13:05 Dose: 3 ml Documented By: KUN Methylprednisolone (Methylprednisolone 125 Mg/2 Ml Vial) 125 mg IV NOW STA Stop: 05/11/22 12:03 Last Admin: 05/11/22 12:12 Dose: 125 mg Documented By: JUAN ECG Rate (beats per minute): 70 Rhythm: normal sinus Additional Comments: Incomplete right bundle branch block EKG compared to prior EKG in October 2021 and December 2020 no significant change COVID-19 Results Results COVID-19 Adm Lab Results: RBC 3.84 M/uL (3.93-5.22) L 05/11/22 WBC 7.87 K/ul (4.8-10.8) 05/11/22 Hgb 12.8 g/dl (12.0-16.0) 05/11/22 Hct 37.5 % (34.1-44.9) 05/11/22 Plt Count 281 K/uL (130-400) 05/11/22 Neutrophils (%) (Auto) 90.2 % 05/11/22 Lymphocytes (%) (Auto) 5.7 % 05/11/22 Monocytes # (Auto) 0.27 K/uL (0.24-0.82) 05/11/22 Eosinophils # (Auto) 0.01 K/uL (0-0.50) 05/11/22 Immature Granulocyte % (Auto) 0.3 % 05/11/22 Neutrophils # (Auto) 7.10 K/uL (1.4-6.5) H 05/11/22 Lymphocytes # (Auto) 0.45 K/uL (1.2-3.4) L 05/11/22 Monocytes # (Auto) 0.27 K/uL (0.24-0.82) 05/11/22 Eosinophils # (Auto) 0.01 K/uL (0-0.50) 05/11/22 Basophils # (Auto) 0.02 K/uL (0-0.2) 05/11/22 Immature Granulocyte # (Auto) 0.02 K/uL (0.00-0.02) 2 Na 140 mmol/L (136-145) 05/11/22 K 4.5 mmol/L (3.5-5.1) 05/11/22 Cl 106 mmol/L (98-107) 05/11/22 CO2 26 mmol/L (21-32) 05/11/22 Anion Gap 8 (3-11) 05/11/22 BUN 19 mg/dl (6-23) 05/11/22 Creatinine 0.96 mg/dl (0.6-1.2) 05/11/22 BUN/Creatinine Ratio 19.8 (10-20) 05/11/22 Glucose Level 106 mg/dl (70-99(Fasting)) H 05/11/22 Ca 9.5 mg/dl (8.5-10.1) 05/11/22 Total Bilirubin 0.4 mg/dl (0.2-1.0) 05/11/22 AST/SGOT 17 U/L (13-39) 05/11/22 ALT/SGPT 21 U/L (7-52) 05/11/22 Alkaline Phosphatase 51 U/L (34-104) 05/11/22 Total Protein 6.0 gm/dl (6.0-8.3) 05/11/22 Albumin 3.9 gm/dl (3.4-5.0) 05/11/22 Globulin 2.1 gm/dl (2.5-4.0) L 05/11/22 Albumin/Globulin Ratio 1.9 (0.9-2) 05/11/22 Procalcitonin < 0.05 ng/ml (0-0.5) 05/11/22 D-Dimer 400 ug/L FEU (0-500) 05/11/22 PTT 23.9 Seconds (21.0-31.0) 05/11/22 INR 1.0 (0.9-1.1) 05/11/22 COVID-19 PCR NEGATIVE (Negative) 05/11/22 Influenza Virus Type A (PCR) Negative (Neg) 05/11/22 Influenza Virus Type B (PCR) Negative (Neg) 05/11/22 ABG pH 7.50 (7.35-7.45) H 05/11/22 ABG pCO2 34 mmHg (35-46) L 05/11/22 ABG pO2 68 mmHg (80-95) L 05/11/22 ABG HCO3 27 mmol/L (19-24) H 05/11/22 ABG O2 Saturation 97.0 % (90-95) H 05/11/22 ABG Base Excess 3.6 mEq/L (-9-1.8) H 05/11/22 Chest X-Ray 05/11/22 Code Status & VTE Plan Code Status FULL CODE VTE Prophylaxis Plan VTE Prophylaxis will be ordered: Yes Supervising Physician Co-Signing Physician Notes Pt seen and examined by me, care coordinated w/ B. VIKAS Rice, pls refer to her note above for further detail. Pt is a 79 yo F w/ COPD, nocturnal hypoxemia on 2 L of O2 at at bedtime, HTN, HLD, fibromyalgia, depression with anxiety, hx of cdiff, history of tobacco abuse who presents w/worsening shortness of breath x2 to 3 weeks likely secondary to COPD exacerbation. She has been using her home inhalers of Breo, Incruse and albuterol nebulizer without much improvement. She follows with [facility] pulmonology. In ED patient remained hemodynamically stable although oxygen saturations fluctuated between 88 and 91% on room air. Her chest x-ray was negative for acute abnormality. Her CBC and CMP was generally unremarkable. Her ABG did reveal a respiratory alkalosis. She received IV Solu-Medrol and 2 nebulizer treatments. She feels minimally improved. She did take oral steroids at home without improvement. She is alert oriented answering questions appropriately, in no acute distress. We will continue with IV Solu-Medrol, add IV Levaquin. She currently has minimal O2 requirements, lungs overall CTAB. Continue to closely monitor, if without improvement, consider pulmonary consult. MD Devang
[2022-05-11] MEDS ORDERED: ALUMINUM/MAGNESIUM SUSP 30 ML UDC PO PRN (15:38)
[2022-05-11] MEDS ORDERED: ONDANSETRON INJ 2 MG/ML 2 ML VIAL IV PRN (15:38)
[2022-05-11] MEDS ORDERED: MAGNESIUM HYDROXIDE SUSP 30 ML UDC PO PRN (15:38)
[2022-05-11] MEDS ORDERED: ACETAMINOPHEN 325 MG TAB PO PRN (15:38)
[2022-05-11] MEDS ORDERED: POLYETHYLENE (MIRALAX) 17 GM PACK PO PRN (15:38)
[2022-05-11] MEDS: ALBUT/IPRATROP 3MG/0.5MG NEB 3 ML VIAL NEB SCH ×2 (15:56→20:13)
[2022-05-11] MEDS ORDERED: levoFLOXacin/D5W 750 MG/150 ML BAG IV SCH (16:00)
[2022-05-11] MEDS: SACCHAROMYCES BOULARDII 250 MG CAP PO SCH (16:26)
[2022-05-11] MEDS: hydrOXYzine HCl 25 MG TAB PO PRN (18:30)
[2022-05-11] MEDS: guaiFENesin 600 MG TABCR PO SCH (20:54)
[2022-05-11] MEDS: CLOTRIMAZOLE 10 MG TROCHE BUCCAL SCH (20:54)
[2022-05-11] MEDS: FLUTICASONE PROPIONATE NA SPR 16 GM BTL SCH (20:54)
[2022-05-11] MEDS: AZELASTINE HCL 0.1% NASAL 200 SPRAYS/27,400 MCG BTL SCH (20:55)
[2022-05-11] MEDS ORDERED: ENOXAPARIN INJ 40 MG/0.4 ML SYR SQ SCH (21:00)
[2022-05-12] MEDS: hydrOXYzine HCl 25 MG TAB PO PRN ×2 (03:25→09:54)
[2022-05-12] MEDS ORDERED: ALBUT/IPRATROP 3MG/0.5MG NEB 3 ML VIAL NEB PRN ×2 (03:30→08:23)
[2022-05-12] MEDS: ALBUT/IPRATROP 3MG/0.5MG NEB 3 ML VIAL NEB SCH ×4 (07:22→15:33)
[2022-05-12] MEDS: AZELASTINE HCL 0.1% NASAL 200 SPRAYS/27,400 MCG BTL SCH (08:10)
[2022-05-12] MEDS: FLUTICASONE PROPIONATE NA SPR 16 GM BTL SCH (08:10)
[2022-05-12] MEDS: SACCHAROMYCES BOULARDII 250 MG CAP PO SCH (08:10)
[2022-05-12] MEDS: guaiFENesin 600 MG TABCR PO SCH (08:10)
[2022-05-12] MEDS: CLOTRIMAZOLE 10 MG TROCHE BUCCAL SCH ×2 (08:11→13:58)
[2022-05-12] MEDS ORDERED: methylPREDNISolone 40 MG in SYRINGE 0 ML IV SCH (09:00)
[2022-05-12] MEDS ORDERED: CHOLECALCIFEROL 1,000 UNITS 25 MCG TAB PO SCH (09:00)
[2022-05-12] MEDS ORDERED: PANTOprazole 40 MG TAB PO SCH (09:00)
[2022-05-12] MEDS ORDERED: DULoxetine HCL 60 MG CAP PO SCH (09:00)
[2022-05-12] MEDS ORDERED: UMECLIDINIUM BROMIDE 62.5MCG/BLISTER 7 PUFFS/INHALER INH SCH (09:00)
[2022-05-12] MEDS ORDERED: VITAMIN B COMPLEX TAB PO SCH (09:00)
[2022-05-12] MEDS ORDERED: FLUTICASONE/VILANTEROL 200/25MCG 14 PUFFS/INHALER INH SCH (09:00)
--- NOTE | 2022-05-12 13:28 | Discharge Summary ---
Date of Service May 12, 2022 Admission HPI Per Admitting Provider This is a 79-year-old female who has history of COPD, nocturnal hypoxemia on 2 L of O2 at at bedtime, HTN, HLD, fibromyalgia, depression with anxiety, hx of cdiff, history of tobacco abuse who presents to ED secondary to worsening shortness of breath x2 to 3 weeks. She has known history of COPD and prior past history of smoking. She is no longer smoking. She has required hospitalization for COPD in past but it has been many years. She states over the last 2 to 3 weeks she has had notable increase in shortness of breath. It is becoming progressively worse and also present occasionally at rest. She had a wedding she wanted to attend yesterday and attended the wedding and opted to come for evaluation today. She has been using her home inhalers of Breo, Incruse and albuterol nebulizer without much improvement. She has also been using Mucinex. She feels very congested but unable to expectorate. Whenever she is able to expectorate she states mucus is yellow in nature. She denies any known sick contacts. She denies any fever, chills, sweats, lightheadedness, dizziness, chest pain, hemoptysis, palpitations, nausea, vomiting, abdominal pain, change in bowel or urinary habits. She does follow with [facility] pulmonology. In ED patient remained hemodynamically stable although oxygen saturations fluctuated between 88 and 91% on room air. Her chest x-ray was negative for acute abnormality. Her CBC and CMP was generally unremarkable. Her ABG did reveal a respiratory alkalosis. She received IV Solu-Medrol and 2 nebulizer treatments. She does feel minimally improved. She did take oral steroids at home without improvement. Approximately 2 weeks ago she also completed a course of doxycycline. Admission Exam Per Admitting Provider Constitutional: WD/WN, vitals as above, NAD, sitting up in bed, pleasant, conversing easily Head: Normocephalic, Atraumatic Eyes: PERRL, conjunctivae normal, anicteric sclerae ENMT: external ear and nose normal, oropharynx normal Neck: trachea midline, no thyromegaly normal visual inspection Respiratory: normal respiratory effort, lungs clear to auscultation, no wheeze, rales, rhonchi. Normal insp/exp effort, no accessory muscle use Cardiovascular: RRR, no murmur, no edema Vessels: no JVD or carotid bruit Chest: normal inspection of chest Abdomen: normal bowel sounds, soft, nontender, no hepatosplenomegaly Musculoskeletal: no cyanosis or clubbing, extremities motor strength 5/5 Skin: no rashes, warm and dry normal turgor Neurologic: PERRL, EOMI, accommodation nl, no face palsy, no dysarthria CN's II-XI intact bilaterally and moves all extremities Psychiatric: A+Ox3, euthymic affect Lymphatic: no cervical or axillary lymphadenopathy : deferred Principal Diagnosis COPD excerebration Anxiety Discharge Exam Constitutional: WD/WN, vitals as above, NAD, sitting up in bed, pleasant, conversing easily Respiratory: no wheeze on examination Cardiovascular: RRR, no murmur, no edema Vessels: no JVD or carotid bruit Chest: normal inspection of chest Abdomen: normal bowel sounds, soft, nontender, no hepatosplenomegaly Musculoskeletal: no cyanosis or clubbing, extremities motor strength 5/5 Skin: no rashes, warm and dry normal turgor Neurologic: PERRL, EOMI, accommodation nl, no face palsy, no dysarthria CN's II-XI intact bilaterally and moves all extremities Psychiatric: A+Ox3, euthymic affect Lymphatic: no cervical or axillary lymphadenopathy : deferred Discharge Data Allergies Allergy/AdvReac Type Severity Reaction Status Date / Time ciprofloxacin AdvReac Intermediate NAUSEA/VOMI Verified 10/08/21 16:23 TING montelukast AdvReac Intermediate Anxiety Verified 10/08/21 16:23 Consultations 05/11/22 13:15 ED Decision to Admit Stat Hospital Course (1) Acute exacerbation of chronic obstructive pulmonary disease: (2) Hypoxemia: Plan This is a 79-year-old female who has history of COPD, nocturnal hypoxemia on 2 L of O2 at at bedtime, HTN, HLD, fibromyalgia, depression with anxiety, hx of cdiff, history of tobacco abuse who presents to ED secondary to worsening shortness of breath x2 to 3 weeks. On presentation to the ED, she was at baseline oxygen requirement, normotensive and afebrile. Chest x-ray was unremarkable for pneumonia. ABG showed respiratory alkalosis. Patient was admitted to telemetry floor. She was started on IV steroid and Levaquin. Overnight, patient shortness of breath improved. Her chest examination did not reveal any wheeze. She was able to walk on the hallway with no issues; saturated over 92% in room air. She complains of upper respiratory congestion. She had already completed 5 days of steroid outpatient and inpatient. Patient was discharged with prednisone rescue kit. Her inhalers were resumed. She was started on Claritin for seasonal allergies. She was given hydroxyzine prescription on her request as alternative to clariin. She was asked to follow-up with her primary care doctor. Discharge instructions were given to the daughter over the phone. Total Time Total Time Spent Total Time Spent (In Minutes): 35 Total Time Includes: Examination of the Patient, Discharge Planning, Medication Reconciliation, Communication With Other Providers and Other Discharge Plan Discharge Items Patient Disposition: Home - Self-Care Reason For Visit: COPD EXAC Discharge Diagnosis: COPD exacerbation Activity: Resume your previous activity Non-emergency contact: Primary Care Provider Call non-emergency contact if: you have any medication questions Follow-up/Referrals: Sukhwinder Littlejohn MD [Primary Care Provider] - (Date & Time 05/19/2022 9:00 AM Provider Sukhwinder Littlejohn MD Department Family Practice [facility] ) Diet: Regular Addtl Attending Provider Instructions: You are admitted to the hospital with COPD exacerbation. A prednisone Dosepack is ordered for you to be taken when you have acute exacerbation. Please take Claritin 10 mg at night. Please follow-up with your primary care doctor. Pending Studies at Discharge: No Stand-Alone Forms: My e[employer], Smoking Cessation Medications and DC Order Prescriptions: New loratadine [Claritin] 10 mg tablet 10 mg PO DAILY Qty: 30 0RF hydroxyzine HCl 25 mg tablet 25 mg PO HS PRN (Reason: itching) Qty: 30 0RF prednisone 5 mg tablets,dose pack See Rx Instructions .ROUTE .COMPLEX Qty: 21 0RF Rx Instructions: prednisone 5 mg: take 8 tablets (40 mg) on Day 1; 7 tablets (35 mg) on Day 2; then decrease by 1 tablet every day until finished Continued mupirocin 2 % ointment 1 applic topical DIRECTED PRN (Reason: Skin Irritation) albuterol sulfate [ProAir HFA] 90 mcg/actuation Hfa Aerosol Inhaler 1 puff INHALATION DIRECTED PRN (Reason: COPD) duloxetine [Cymbalta] 60 mg Capsule,Delayed Release(Dr/Ec) 60 mg PO QAM omeprazole 20 mg Tablet,Delayed Release (Dr/Ec) 20 mg PO QAM guaifenesin [Mucinex] 600 mg Tablet Extended Release 12hr 600 mg PO DIRECTED PRN (Reason: TO THIN MUCOUS) cholecalciferol (vitamin D3) [Vitamin D3] 25 mcg (1,000 unit) Capsule 25 mcg PO QAM vitamin B complex Capsule 1 cap PO DAILY albuterol sulfate 2.5 mg/0.5 mL Solution For Nebulization 2.5 mg INHALATION DIRECTED PRN (Reason: COPD) clotrimazole 10 mg zaid 10 mg PO TID azelastine-fluticasone 137-50 mcg/spray spray,non-aerosol 1 spray INTRANASAL BID Incruse Ellipta 62.5 mcg/actuation Blister With Device 1 inh INHALATION DAILY fluticasone furoate-vilanterol [Breo Ellipta] 200-25 mcg/dose blister with device 1 inh INHALATION DAILY Discharge Orders: Discharge Order (Routine); Ordered 05/12/22 Ordered By: Micheal Burgos Admission Data Admit Date/Time: 05/11/22 13:41 Attending Provider: Micheal Burgos Admit Provider: Riccardo Siddiqi Primary Care Provider: Sukhwinder Littlejohn Other Providers: Riccardo Siddiqi
== END 2022-05-12 17:14 | disposition home or self-care (01) ==
LOC: ED 11:31 → 2N 11:31 → SUATTDRO 13:41 → 2N 16:44
DX: Z88.1 Allergy status to other antibiotic agents; R09.02 Hypoxemia; Z99.81 Dependence on supplemental oxygen; Z86.19 Personal history of other infectious and parasitic diseases; E87.3 Alkalosis; Z79.899 Other long term (current) drug therapy; F41.9 Anxiety disorder, unspecified; K21.9 Gastro-esophageal reflux disease without esophagitis; Z87.891 Personal history of nicotine dependence; Z88.8 Allergy status to other drugs, medicaments and biological substances; J44.1 Chronic obstructive pulmonary disease with (acute) exacerbation; F32.A Depression, unspecified

== ENCOUNTER 2024-02-18 15:43 | Inpatient (IN) ==
[2024-02-18 16:28] LABS: Hematocrit (blood only) 38.2 % (37.0-47.0); Hemoglobin 13.1 g/dl (12.0-16.0); Immature Granulocytes # (auto) 0.02 K/uL (0.01-0.20); Immature Granulocytes % (auto) 0.3 %; Lymphocytes # (auto) 0.43 K/uL (1.20-3.40); Lymphocytes % (auto) 6.9 %; Mean Corpuscular Hemoglobin 32.5 pg (25.0-34.0); Mean Corpuscular Hgb Conc 34.3 g/dL (32.0-36.0); Mean Corpuscular Volume 94.8 fL (80.0-100.0); Mean Platelet Volume 9.2 fL (9.4-12.4); Monocytes # (auto) 0.29 K/uL (0.11-0.59); Monocytes % (auto) 4.7 %; Neutrophils # (auto) 5.46 K/uL (1.40-6.50); Neutrophils % (auto) 88.1 %; Platelet Count 315 K/uL (130-400); RDW Coefficient of Variation 13.2 % (11.5-14.5); RDW Standard Deviation 45.5 fL (36.4-46.3); Red Blood Count 4.03 M/uL (4.20-5.40)
[2024-02-18 16:39] LABS: Albumin Globulin Ratio 1.6 (0.9-2); Albumin Level 4.4 gm/dl (3.4-5.0); BUN Creatinine Ratio 19.1 (10-20); Bilirubin,Total 0.5 mg/dl (0.2-1.0); Calcium 9.9 mg/dl (8.6-10.3); Creatinine Clr Calc Pharmacy 71.8 ml/min; Est GFR (African American) 101.3 ml/min; Est GFR (Non-African American) 87.4 ml/min; Globulin 2.7 gm/dl (2.5-4.0); Potassium 4.1 mmol/L (3.5-5.1); Total Protein 7.1 gm/dl (6.0-8.3)
[2024-02-18 16:45] LABS: Troponin I High Sensitivity 2.5 pg/ml (0-14)
--- NOTE | 2024-02-18 16:49 | Emergency Department Note ---
Impression & Plan COPD (chronic obstructive pulmonary disease), Hypoxia ED Provider Note Diagnosis: COPD exacerbation, hypoxia Disposition: Admission CHIEF COMPLAINT: Shortness of breath HPI: Patient is a 73-year-old female presenting with complaint of shortness of breath. Patient went to her primary care physician approximately 5 days prior was started on prednisone taper 40 for 3 days 20 for 2 days. Patient states she still feels like she cannot catch her breath at times. Patient uses oxygen at night but had to wear during the day today 1 L due to having oxygen saturations at home of 84% on room air. Patient denies fevers or chills. Patient states she feels like she has to cough but no sputum will come up. Patient having some tightness across her chest. PAST MEDICAL HISTORY: See Below PAST SURGICAL HISTORY: See Below SOCIAL HISTORY: See Below HOME MEDICATIONS: See Below ALLERGIES: See Below VITALS: See Below PHYSICAL EXAMINATION: GENERAL: Well appearing, well nourished, NAD, non-toxic. EYE EXAM: Normal conjunctiva. OROPHARYNX: Moist mucus membranes. Grossly normal dentition. NECK: Supple, LUNGS: Diminished bilaterally HEART: NSR ABDOMEN: Abdomen soft, non-tender, normo-active bowel sounds, no masses, no rebound or guarding BACK: No CVA TTP. SKIN: No rashes and no bruising. UPPER EXTREMITIES: Upper extremities are grossly normal LOWER EXTREMITIES: Grossly normal, no edema. NEURO EXAM: A&O x3,, normal speech, moves all 4 extremities PSYCH: Cooperative MEDICAL DECISION MAKING: Reviewed external documents: History obtained from: Patient ER Course: Patient is a 73-year-old female with history of COPD that only uses oxygen at night. Patient has been short of breath for the past 4 to 5 days time and was placed on steroid taper by primary care physician. Patient states she has a cough but no productive sputum no fever. Patient denies experiencing chest tightness. Patient's chest x-ray clear. Patient given IV Solu-Medrol. Patient given 2 DuoNeb treatments with improvement in movement of air on auscultation. Patient after being monitored for over 3 hours time had the oxygen turned off and she drops down into the mid 80% range on room air which is not her normal. I recommended that she stay in the hospital due to already being on steroids for 4 days time and new oxygen requirement during the day. Labs (independently interpreted) are significant for: Troponin negative, Imaging results (independently interpreted): Chest x-ray clear EKG interpretation (independently interpreted): Normal sinus rhythm no ST segment elevation or depression Medications given: Solu-Medrol, DuoNeb x 2 Consultants: Hospitalist service Chronic conditions affecting care: COPD Triage Nursing notes reviewed and agree them. 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 Carpal tunnel syndrome, right Gait disturbance Dysesthesia of multiple sites Depression with anxiety Cervical spine pain Eustachian tube dysfunction Nasal septal perforation Chondrocalcinosis Lateral epicondylitis of right elbow Degenerative arthritis of knee, bilateral Low back pain (Acute) Hypomagnesemia (Acute) Ovarian cyst (Chronic) Nocturnal hypoxemia (Chronic) Hypertension (Chronic) History of tobacco use (Chronic) quit 12 years ago Fibromyalgia (Chronic) Lumbar spondylosis (Chronic 09/14/11) Medical History Hyperlipidemia Pt denies Leg length discrepancy Allergic rhinitis with postnasal drip Myofascial low back pain Hypertension Fibromyalgia Neuropathy due to Lyme disease Vertigo - has had in the ast - recently worsened, went to [place] ER on 01/27/24 at [facility], no findings, prescribed valium - as of PAT appt 02/03/24- vertigo mildly improving (saw PCP yesterday (02/02/24)- having patient hold metoprolol) Lumbar stenosis goes to pain mgmt - Dr. Crzu, gets pain injections Cervical spine pain goes to pain mgmt, has full ROM, SOB (shortness of breath) on exertion About 1-2 weeks ago- following with pulm- started on increased Trelegy inhaler- improving as of 02/03/24 PAT appt Lyme disease (10/2023) still fatigued - treated with abx Hx of Clostridium difficile infection (2016) History of COVID-19 (08/2022) continues with fatigue On home oxygen therapy wears at hs and prn daily- 1-2L Ovarian cyst Osteoporosis Osteoarthritis GERD (gastroesophageal reflux disease) well controlled and stable Asthma Sees Dr. Breaux ([facility]) Recently started on increased dose of Trelegy as of 02/03/24 COPD (chronic obstructive pulmonary disease) daily inh x2 and prn inh x1, follows with [facility], wears O2 2L at night and during day prn Surgical History Hx of esophagogastroduodenoscopy (06/11/23) History of bronchoscopy History of removal of cyst nose & tonsils - Dr. Abreu on 12/27/20 knee "years ago" History of nasal surgery Hx of abdominoplasty Hx of breast reduction, elective History of colonoscopy History of cholecystectomy History of tooth extraction Family History Family/Other Allergies Asthma Mother , age 70 of an [place] Myocardial infarction Father , age 49 of a ruptured cerebral and Cerebral aneurysm Other No pertinent family history Denies family history of Ovarian cancer Breast cancer Colorectal cancer Social History Smoking Status: Never smoker Tobacco Type: Cigarettes Age Started Using Tobacco: 20; Age Quit Using Tobacco: 61; packs per day: 1; Second Hand Exposure: No; Do You Dip or Chew Tobacco: No; Hx Alcohol Use: Yes Alcohol type: hard liquor Alcohol Intake Frequency Comment: Special occasions, very rare use Hx Substance Use: No Preferred Language: Jamaican Communication Ability: Effective Visual Impairment: No Limitations Air Shovel Operator Required: No Beliefs That Will Affect Care: None Current Living Situation: Alone current occupational status: retired 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 [employer] Feels Safe at Home: Yes Assistive Devices: Oxygen - at Night Allergies Allergies Allergy/AdvReac Type Severity Reaction Status Date / Time ciprofloxacin AdvReac Intermediate NAUSEA/VOMI Verified 02/15/24 10:52 TING montelukast AdvReac Intermediate Anxiety Verified 02/15/24 10:52 doxycycline AdvReac Mild GI Issues Verified 02/15/24 10:52 amlodipine AdvReac edema Verified 02/18/24 21:21 Home Meds Home Medications Medication Instructions Recorded Confirmed cholecalciferol (vitamin D3) 25 25 mcg PO QAM 09/23/19 02/18/24 mcg (1,000 unit) capsule (Vitamin D3) guaifenesin 600 mg tablet, 600 mg PO AMHS Congestion 02/02/23 02/18/24 extended release 12 hr (Mucinex) albuterol sulfate 2.5 mg/3 mL 2.5 mg inhalation Q4H PRN Wheezing 01/27/24 02/18/24 (0.083 %) solution for nebulization albuterol sulfate 90 mcg/actuation 2 puff inhalation Q4 PRN 01/27/24 02/18/24 aerosol inhaler cough,SOB,chest tightness azithromycin 250 mg tablet 250 mg PO 3XWK 01/27/24 02/18/24 calcium carbonate 600 mg-vitamin 1 tab PO QAM 01/27/24 02/18/24 D3 10 mcg (400 unit) tablet (Calcium 600 + D(3)) duloxetine 60 mg capsule,delayed 60 mg PO QAM 01/27/24 02/18/24 release levocetirizine 5 mg tablet 5 mg PO HS 01/27/24 02/15/24 pyridoxine (vitamin B6) 100 mg 100 mg PO QAM 01/27/24 02/18/24 tablet (Vitamin B-6) fluticasone fur. 200 mcg-umeclid inhalation 02/18/24 62.5 mcg-vilant 25 mcg inhalat.powder (Trelegy Ellipta) losartan 25 mg tablet (Cozaar) 25 mg PO DAILY 02/18/24 02/18/24 pantoprazole 20 mg tablet,delayed 20 mg PO DAILY 02/18/24 02/18/24 release (Protonix) umeclidinium 62.5 mcg/actuation 62.5 mcg inhalation DAILY 02/18/24 02/18/24 blister powder for inhalation (Incruse Ellipta) Previous Rx's Medication Instructions Recorded azelastine 137 mcg-fluticasone 50 1 spray intranasal BID #23 grams 07/14/23 mcg/spray nasal spray fluticasone fur. 200 mcg-umeclid 1 inh inhalation DAILY #3 Inhalers 02/02/24 62.5 mcg-vilant 25 mcg inhalat.powder (Trelegy Ellipta) chlorpheniramine-dextromethorphan 1 tab PO BID PRN cough #30 tabs 02/08/24 4 mg-30 mg tablet Results & Data (ED) Vital Signs Vital Signs - 24 hr 02/18/24 15:48 02/18/24 16:24 02/18/24 16:24 Temperature 36.7 C Temperature Source Skin Pulse Rate 75 Pulse Rate [Right Finger] 70 Respiratory Rate 20 19 Respiratory Effort / Characteristics Non-Labored Spontaneous Respiratory Depth Normal Blood Pressure 146/84 H Blood Pressure [Left Arm] 121/68 Blood Pressure Mean 104 Blood Pressure Mean [Left Arm] 85 Pulse Oximetry 95 95 Oxygen Delivery Method Nasal Cannula Nasal Cannula Nasal Cannula Oxygen Flow Rate 1 1 1 Sepsis Recent Fever Within 48 Hours No Sepsis New/Unexplained Change in Mental Status No Sepsis Action Taken by Nursing No Action Required 02/18/24 16:24 02/18/24 16:44 02/18/24 17:55 Temperature Temperature Source Pulse Rate 65 Pulse Rate [Right Finger] 66 Respiratory Rate 16 Respiratory Effort / Characteristics Non-Labored Spontaneous Respiratory Depth Normal Blood Pressure Blood Pressure [Left Arm] Blood Pressure Mean Blood Pressure Mean [Left Arm] Pulse Oximetry 95 96 Oxygen Delivery Method Nasal Cannula Nasal Cannula Oxygen Flow Rate 1 Sepsis Recent Fever Within 48 Hours Sepsis New/Unexplained Change in Mental Status Sepsis Action Taken by Nursing 02/18/24 18:33 02/18/24 19:50 02/18/24 21:33 Temperature Temperature Source Pulse Rate Pulse Rate [Right Finger] 66 72 71 Respiratory Rate 20 18 19 Respiratory Effort / Characteristics Respiratory Depth Blood Pressure Blood Pressure [Left Arm] 104/73 122/69 Blood Pressure Mean Blood Pressure Mean [Left Arm] 83 86 Pulse Oximetry 99 93 94 Oxygen Delivery Method Nebulizer Nasal Cannula Nasal Cannula Oxygen Flow Rate 1 1 Sepsis Recent Fever Within 48 Hours Sepsis New/Unexplained Change in Mental Status Sepsis Action Taken by Nursing 02/18/24 22:06 Temperature Temperature Source Pulse Rate 70 Pulse Rate [Right Finger] Respiratory Rate Respiratory Effort / Characteristics Respiratory Depth Blood Pressure Blood Pressure [Left Arm] Blood Pressure Mean Blood Pressure Mean [Left Arm] Pulse Oximetry Oxygen Delivery Method Oxygen Flow Rate Sepsis Recent Fever Within 48 Hours Sepsis New/Unexplained Change in Mental Status Sepsis Action Taken by Nursing Laboratory Data 02/18/24 16:06 02/18/24 16:06 Lab Results 02/18/24 02/18/24 02/18/24 Range/Units 16:06 16:45 16:55 WBC 6.20 (4.8-10.8) K/ul RBC 4.03 L (4.20-5.40) M/uL Hgb 13.1 (12.0-16.0) g/dl Hct 38.2 (37.0-47.0) % MCV 94.8 (80.0-100.0) fL MCH 32.5 (25.0-34.0) pg MCHC 34.3 (32.0-36.0) g/dL RDW Std Deviation 45.5 (36.4-46.3) fL RDW Coeff of [place]ub[place] 13.2 (11.5-14.5) % Plt Count 315 (130-400) K/uL MPV 9.2 L (9.4-12.4) fL Immature Gran % (Auto) 0.3 % Neut % (Auto) 88.1 % Lymph % (Auto) 6.9 % [place] % (Auto) 4.7 % Eos % (Auto) 0.0 % Baso % (Auto) 0.0 % Neut # (Auto) 5.46 (1.40-6.50) K/uL Lymph # (Auto) 0.43 L (1.20-3.40) K/uL [place] # (Auto) 0.29 (0.11-0.59) K/uL Eos # (Auto) 0.00 (0.00-0.50) K/uL Baso # (Auto) 0.00 (0.00-0.20) K/uL Immature Gran # (Auto) 0.02 (0.01-0.20) K/uL PT 10.3 (9.0-12.0) Seconds INR 0.9 (0.9-1.1) APTT 23 (21-31) Seconds PTT Ratio 0.9 VBG pH (7.36-7.41) VBG pCO2 (38-50) mmHg VBG pO2 mmHg VBG HCO3 mmol/L VBG O2 Saturation % VBG Base Excess mEq/L Sodium 135 L (136-145) mmol/L Potassium 4.1 (3.5-5.1) mmol/L Chloride 101 (98-107) mmol/L Carbon Dioxide 28 (21-32) mmol/L Anion Gap 6 (3-11) BUN 13 (6-23) mg/dl Creatinine 0.68 (0.6-1.2) mg/dl Est Cr Clr Drug Dosing 71.8 ml/min Est GFR ( Amer) 101.3 ml/min Est GFR (Non-Af Amer) 87.4 ml/min BUN/Creatinine Ratio 19.1 (10-20) Glucose 109 H (70-99(Fasting)) mg/dl Calcium 9.9 (8.6-10.3) mg/dl Magnesium 2.1 (1.7-2.4) mg/dl Total Bilirubin 0.5 (0.2-1.0) mg/dl AST 32 (13-39) U/L ALT 70 H (7-52) U/L Alkaline Phosphatase 93 (34-104) U/L Troponin I High Sens 2.5 (0-14) pg/ml B-Natriuretic Peptide 80 (0-100) pg/ml Total Protein 7.1 (6.0-8.3) gm/dl Albumin 4.4 (3.4-5.0) gm/dl Globulin 2.7 (2.5-4.0) gm/dl Albumin/Globulin Ratio 1.6 (0.9-2) SARS-CoV-2 (PCR) NEGATIVE (Negative) Influenza Type A (PCR) Negative (Neg) Influenza Type B (PCR) Negative (Neg) RSV (RT-PCR) Negative (Neg) 02/18/24 02/18/24 Range/Units 18:28 21:30 WBC (4.8-10.8) K/ul RBC (4.20-5.40) M/uL Hgb (12.0-16.0) g/dl Hct (37.0-47.0) % MCV (80.0-100.0) fL MCH (25.0-34.0) pg MCHC (32.0-36.0) g/dL RDW Std Deviation (36.4-46.3) fL RDW Coeff of [place]ubia (11.5-14.5) % Plt Count (130-400) K/uL MPV (9.4-12.4) fL Immature Gran % (Auto) % Neut % (Auto) % Lymph % (Auto) % [place] % (Auto) % Eos % (Auto) % Baso % (Auto) % Neut # (Auto) (1.40-6.50) K/uL Lymph # (Auto) (1.20-3.40) K/uL [place] # (Auto) (0.11-0.59) K/uL Eos # (Auto) (0.00-0.50) K/uL Baso # (Auto) (0.00-0.20) K/uL Immature Gran # (Auto) (0.01-0.20) K/uL PT (9.0-12.0) Seconds INR (0.9-1.1) APTT (21-31) Seconds PTT Ratio VBG pH 7.42 H (7.36-7.41) VBG pCO2 45 (38-50) mmHg VBG pO2 43 mmHg VBG HCO3 29 mmol/L VBG O2 Saturation 75.2 % VBG Base Excess 4.0 mEq/L Sodium (136-145) mmol/L Potassium (3.5-5.1) mmol/L Chloride (98-107) mmol/L Carbon Dioxide (21-32) mmol/L Anion Gap (3-11) BUN (6-23) mg/dl Creatinine (0.6-1.2) mg/dl Est Cr Clr Drug Dosing ml/min Est GFR ( Amer) ml/min Est GFR (Non-Af Amer) ml/min BUN/Creatinine Ratio (10-20) Glucose (70-99(Fasting)) mg/dl Calcium (8.6-10.3) mg/dl Magnesium (1.7-2.4) mg/dl Total Bilirubin (0.2-1.0) mg/dl AST (13-39) U/L ALT (7-52) U/L Alkaline Phosphatase (34-104) U/L Troponin I High Sens 2.5 (0-14) pg/ml B-Natriuretic Peptide (0-100) pg/ml Total Protein (6.0-8.3) gm/dl Albumin (3.4-5.0) gm/dl Globulin (2.5-4.0) gm/dl Albumin/Globulin Ratio (0.9-2) SARS-CoV-2 (PCR) (Negative) Influenza Type A (PCR) (Neg) Influenza Type B (PCR) (Neg) RSV (RT-PCR) (Neg) Administered Medications Discontinued Medications Albuterol (Albut/Ipratrop 3mg/0.5mg Neb 3 Ml Vial) 3 ml NEB NOW STA; Protocol Stop: 02/18/24 16:44 Last Admin: 02/18/24 16:57 Dose: 3 ml Documented By: ASW Albuterol (Albut/Ipratrop 3mg/0.5mg Neb 3 Ml Vial) 3 ml NEB NOW STA; Protocol Stop: 02/18/24 18:29 Last Admin: 02/18/24 18:33 Dose: 3 ml Documented By: ASW Famotidine (Pepcid 20mg Iv Push) 20 mg in 5 mls @ 2.5 mls/min IV NOW STA Stop: 02/18/24 21:11 Last Admin: 02/18/24 21:33 Dose: 2.5 mls/min Documented By: ASW Ioversol (Optiray 320 125ml) 118 ml IV ONCE ONE Stop: 02/18/24 21:59 Last Admin: 02/18/24 21:59 Dose: 118 ml Documented By: RAMONA Methylprednisolone (Methylprednisolone 125 Mg/2 Ml Vial) 125 mg IV NOW STA Stop: 02/18/24 16:44 Last Admin: 02/18/24 16:57 Dose: 125 mg Documented By: ASW Imaging Data Radiologist's Impression: Chest X-Ray 02/18/24 15:52 XR chest 1V not portable HISTORY: Chest pain, nonspecific COMPARISON: Chest 01/27/2024. FINDINGS: The lungs are clear. Cardiac silhouette is normal in size. No pleural effusions. No pneumothorax. Prior cholecystectomy. Calcifications within the aortic knob. IMPRESSION: No acute process. ACT 112: Negative or not required by law. Electronically signed by: Nish Quinonez M.D. 02/18/2024 5:26 PM Discharge Plan Visit Data Chief Complaint: Shortness of Breath/Dyspnea Stated Complaint: SOB, ON OXYGEN, BACK PAIN, CONGESTION ED Provider: Kenny Lee Discharge Problem: COPD (chronic obstructive pulmonary disease), Hypoxia Forms Stand Alone Forms: My [employer] Prescriptions Prescriptions: No Action Trelegy Ellipta 200-62.5-25 mcg blister with device 1 inh inhalation DAILY Qty: 3 2RF chlorpheniramine-dextromethorp 4-30 mg tablet 1 tab PO BID PRN (Reason: cough) Qty: 30 1RF Rx Instructions: Take 1 tab twice a day for 7 days and then as needed azelastine-fluticasone 137-50 mcg/spray spray,non-aerosol 1 spray INTRANASAL BID Qty: 23 3RF guaifenesin [Mucinex] 600 mg tablet extended release 12hr 600 mg PO AMHS cholecalciferol (vitamin D3) [Vitamin D3] 25 mcg (1,000 unit) Capsule 25 mcg PO QAM albuterol sulfate 2.5 mg /3 mL (0.083 %) solution for nebulization 2.5 mg inhalation Q4H PRN (Reason: Wheezing) Rx Instructions: use in place of rescue inhaler albuterol sulfate 90 mcg/actuation HFA aerosol inhaler 2 puff INHALATION Q4 PRN (Reason: cough,SOB,chest tightness) calcium carbonate-vitamin D3 [Calcium 600 + D(3)] 600 mg-10 mcg (400 unit) Tablet 1 tab PO QAM azithromycin 250 mg tablet 250 mg PO 3XWK Rx Instructions: THURSDAY,THURSDAY,FRIDAYS pyridoxine (vitamin B6) [Vitamin B-6] 100 mg Tablet 100 mg PO QAM duloxetine 60 mg capsule,delayed release(DR/EC) 60 mg PO QAM levocetirizine 5 mg tablet 5 mg PO HS Incruse Ellipta 62.5 mcg/actuation blister with device 62.5 mcg INHALATION DAILY losartan [Cozaar] 25 mg tablet 25 mg PO DAILY pantoprazole [Protonix] 20 mg tablet,delayed release (DR/EC) 20 mg PO DAILY Trelegy Ellipta 200-62.5-25 mcg blister with device INHALATION Referrals Referrals: Sukhwinder Littlejohn MD [Primary Care Provider] -
[2024-02-18 16:50] LABS: INR 0.9 (0.9-1.1); Partial Thromboplastin Ratio 0.9; Partial Thromboplastin Time 23 Seconds (21-31); Prothrombin Time 10.3 Seconds (9.0-12.0)
[2024-02-18] MEDS: methylPREDNISolone 125 MG/2 ML VIAL IV STA (16:57)
[2024-02-18] MEDS: ALBUT/IPRATROP 3MG/0.5MG NEB 3 ML VIAL NEB STA ×2 (16:57→18:33)
--- NOTE | 2024-02-18 17:27 | XRay Report ---
XR chest 1V not portable HISTORY: Chest pain, nonspecific COMPARISON: Chest 01/27/2024. FINDINGS: The lungs are clear. Cardiac silhouette is normal in size. No pleural effusions. No pneumot horax. Prior cholecystectomy. Calcifications within the aortic knob. IMPRESSION: No acute process. ACT 112: Negative or not required by law. Electronically signed by: Nish Quinonez M.D. 02/18/2024 5:26 PM
[2024-02-18 17:35] LABS: Influenza A virus by PCR Negative (Neg); Influenza B virus by PCR Negative (Neg); RSV by PCR Negative (Neg); SARS CoV2 RNA(COVID-19) Ceph NEGATIVE (Negative)
[2024-02-18 21:16] LABS: Magnesium 2.1 mg/dl (1.7-2.4)
[2024-02-18] MEDS: FAMOTIDINE 20MG IV PUSH 20 MG/5 ML SYR IV STA (21:33)
[2024-02-18 21:45] LABS: HCO3 VBG 29 mmol/L; Oxygen Saturation VBG 75.2 %; PCO2 VBG 45 mmHg (38-50); PO2 VBG 43 mmHg; pH VBG 7.42 (7.36-7.41)
[2024-02-18] MEDS: OPTIRAY 320 125ml IV ONE (21:59)
--- NOTE | 2024-02-18 23:06 | History & Physical Report ---
Date of Service February 18, 2024 Assessment & Plan (1) Shortness of breath: Plan: Secondary to COPD exacerbation History of severe COPD on azithromycin Rx Patient nontoxic. Anxiety contributory to symptoms nocturnal hypoxemia as per records hypertension, stable GERD, stable on PPI mood disorder, at baseline Steroid-induced hyperglycemia, possible prediabetes hemoglobin A1c of 5.7 noted in 2018 past tobacco abuse OBS Medical telemetry Prednisone course, nebs RTC Pulmonology consult for COPD exacerbation as per patient request (Patient known to [facility].) Anxiolytic as needed Update hemoglobin A1c DVT prophylaxis Lovenox subcu Full code Text document was generated using Bizzingo recognition software. It may contain grammatical or spelling errors. Kindly contact undersigned for clarification of any documentation item in question. History of Present Illness Chief Complaint: Worsening shortness of breath Primary Care Provider: Sukhwinder Littlejohn MD History obtained from patient and records. Medical history significant for COPD on chronic azithromycin Rx, nocturnal hypoxemia as per records, hypertension, GERD, hiatal hernia, hypogammaglobulinemia as per records, anxiety/mood disorder, fibromyalgia, past history of C. difficile, past tobacco abuse. Last confinement May 2022 for COPD exacerbation. 1 week history of dry cough symptoms associated with shortness of breath. Not sure about sick contacts. No response to outpatient prednisone course prescribed by her drupal developer. Patient with chest and subcostal tightness going to the back. No improvement with home inhalers. Solu-Medrol and neb treatment administered at the ER. 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 Allergies Allergy/AdvReac Type Severity Reaction Status Date / Time ciprofloxacin AdvReac Intermediate NAUSEA/VOMI Verified 02/15/24 10:52 TING montelukast AdvReac Intermediate Anxiety Verified 02/15/24 10:52 doxycycline AdvReac Mild GI Issues Verified 02/15/24 10:52 amlodipine AdvReac edema Verified 02/18/24 21:21 Home Medications Medication Instructions Recorded Confirmed Type cholecalciferol (vitamin D3) 25 25 mcg PO QAM 09/23/19 02/18/24 History mcg (1,000 unit) capsule (Vitamin D3) guaifenesin 600 mg tablet, 600 mg PO AMHS Congestion 02/02/23 02/18/24 History extended release 12 hr (Mucinex) azelastine 137 mcg-fluticasone 50 1 spray intranasal BID #23 grams 07/14/23 02/18/24 Rx mcg/spray nasal spray albuterol sulfate 2.5 mg/3 mL 2.5 mg inhalation Q4H PRN Wheezing 01/27/24 02/18/24 History (0.083 %) solution for nebulization albuterol sulfate 90 mcg/actuation 2 puff inhalation Q4 PRN 01/27/24 02/18/24 History aerosol inhaler cough,SOB,chest tightness azithromycin 250 mg tablet 250 mg PO 3XWK 01/27/24 02/18/24 History calcium carbonate 600 mg-vitamin 1 tab PO QAM 01/27/24 02/18/24 History D3 10 mcg (400 unit) tablet (Calcium 600 + D(3)) duloxetine 60 mg capsule,delayed 60 mg PO QAM 01/27/24 02/18/24 History release levocetirizine 5 mg tablet 5 mg PO HS 01/27/24 02/15/24 History pyridoxine (vitamin B6) 100 mg 100 mg PO QAM 01/27/24 02/18/24 History tablet (Vitamin B-6) fluticasone fur. 200 mcg-umeclid 1 inh inhalation DAILY #3 Inhalers 02/02/24 02/18/24 Rx 62.5 mcg-vilant 25 mcg inhalat.powder (Trelegy Ellipta) chlorpheniramine-dextromethorphan 1 tab PO BID PRN cough #30 tabs 02/08/24 02/18/24 Rx 4 mg-30 mg tablet fluticasone fur. 200 mcg-umeclid inhalation 02/18/24 History 62.5 mcg-vilant 25 mcg inhalat.powder (Trelegy Ellipta) losartan 25 mg tablet (Cozaar) 25 mg PO DAILY 02/18/24 02/18/24 History pantoprazole 20 mg tablet,delayed 20 mg PO DAILY 02/18/24 02/18/24 History release (Protonix) Past Med/Surg History Problem List (Updated 02/18/24 @ 22:41 by Kenny Lee DO) Hypoxia (Acute) COPD (chronic obstructive pulmonary disease) (Acute) Tendonitis of both rotator cuffs Osteoarthritis, shoulder Encounter for pre-operative examination Myofascial pain with referred pain Myofascial low back pain Sacroiliac inflammation Allergic rhinitis with postnasal drip Chronic respiratory failure with hypoxia COPD with emphysema Leg length discrepancy Lumbar spinal stenosis Neuropathy due to Lyme disease dx 2022 Carpal tunnel syndrome, right Gait disturbance Dysesthesia of multiple sites Depression with anxiety Cervical spine pain Eustachian tube dysfunction Nasal septal perforation Chondrocalcinosis Lateral epicondylitis of right elbow Degenerative arthritis of knee, bilateral Low back pain (Acute) Hypomagnesemia (Acute) Ovarian cyst (Chronic) Nocturnal hypoxemia (Chronic) Hypertension (Chronic) History of tobacco use (Chronic) quit 12 years ago Fibromyalgia (Chronic) Lumbar spondylosis (Chronic 09/14/11) Medical History Hyperlipidemia Pt denies Leg length discrepancy Allergic rhinitis with postnasal drip Myofascial low back pain Hypertension Fibromyalgia Neuropathy due to Lyme disease Vertigo - has had in the ast - recently worsened, went to [place] ER on 01/27/24 at [facility], no findings, prescribed valium - as of PAT appt 02/03/24- vertigo mildly improving (saw PCP yesterday (02/02/24)- having patient hold metoprolol) Lumbar stenosis goes to pain mgmt - Dr. Cruz, gets pain injections Cervical spine pain goes to pain mgmt, has full ROM, SOB (shortness of breath) on exertion About 1-2 weeks ago- following with pulm- started on increased Trelegy inhaler- improving as of 02/03/24 PAT appt Lyme disease (10/2023) still fatigued - treated with abx Hx of Clostridium difficile infection (2017) History of COVID-19 (08/2022) continues with fatigue On home oxygen therapy wears at hs and prn daily- 1-2L Ovarian cyst Osteoporosis Osteoarthritis GERD (gastroesophageal reflux disease) well controlled and stable Asthma Sees Dr. Breaux ([place] [facility]) Recently started on increased dose of Trelegy as of 02/03/24 COPD (chronic obstructive pulmonary disease) daily inh x2 and prn inh x1, follows with [facility], wears O2 2L at night and during day prn Surgical History Hx of esophagogastroduodenoscopy (06/11/23) History of bronchoscopy History of removal of cyst nose & tonsils - Dr. Abreu on 12/27/20 knee "years ago" History of nasal surgery Hx of abdominoplasty Hx of breast reduction, elective History of colonoscopy History of cholecystectomy History of tooth extraction Family History Family/Other Allergies Asthma Mother , age 70 of an [place] Myocardial infarction Father , age 49 of a ruptured cerebral and Cerebral aneurysm Other No pertinent family history Denies family history of Ovarian cancer Breast cancer Colorectal cancer Social History Smoking Status: Never smoker Tobacco Type: Cigarettes Age Started Using Tobacco: 20; Age Quit Using Tobacco: 61; packs per day: 1; Second Hand Exposure: No; Do You Dip or Chew Tobacco: No; Hx Alcohol Use: No Hx Substance Use: No Preferred Language: Japanese Communication Ability: Effective Visual Impairment: No Limitations Veneer Layer Required: No Beliefs That Will Affect Care: None Current Living Situation: Alone current occupational status: retired 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 [employer] Other Information That Helps Us Care for You: No Feels Safe at Home: Yes Safety Concerns: Feels Safe At This Time Assistive Devices: Oxygen - at Night Review of Systems Review of Systems: As per HPI, all other systems reviewed and negative Physical Exam Physical Exam: GENERAL: Comfortable, anxious, looks younger than stated age, no respiratory distress SKIN: Normal color, warm HEENT: [place] palpebral conjunctivae, no ptosis, moist buccal mucosa, nasal cannula in place NECK : Supple, no tenderness CHEST : Decreased breath sounds, no tenderness HEART : RRR, no obvious murmurs ABDOMEN: Some distention, nontender EXTREMITIES : No LE swelling/tenderness, no other conspicuous deformities noted NEUROLOGIC : Coherent, no facial asymmetry, no other gross focality Results & Data Results & Data Vital Signs (Past 12 Hours) Vital Signs Temp Pulse Pulse Resp BP BP Pulse Ox 02/18/24 22:52 72 19 97 02/18/24 22:06 70 02/18/24 21:33 71 19 122/69 94 02/18/24 19:50 72 18 93 02/18/24 18:33 66 20 104/73 99 02/18/24 17:55 66 16 96 02/18/24 16:44 65 02/18/24 16:24 95 02/18/24 16:24 02/18/24 16:24 70 19 121/68 95 02/18/24 15:48 36.7 C 75 20 146/84 H 95 O2 Del Method O2 Flow Rate 02/18/24 22:52 Nasal Cannula 1 02/18/24 22:06 02/18/24 21:33 Nasal Cannula 1 02/18/24 19:50 Nasal Cannula 1 02/18/24 18:33 Nebulizer 02/18/24 17:55 Nasal Cannula 1 02/18/24 16:44 02/18/24 16:24 Nasal Cannula 02/18/24 16:24 Nasal Cannula 1 02/18/24 16:24 Nasal Cannula 1 02/18/24 15:48 Nasal Cannula 1 Laboratory Results Laboratory Results WBC 6.20 K/ul (4.8-10.8) 02/18/24 16:06 RBC 4.03 M/uL (4.20-5.40) L 02/18/24 16:06 Hgb 13.1 g/dl (12.0-16.0) 02/18/24 16:06 Hct 38.2 % (37.0-47.0) 02/18/24 16:06 MCV 94.8 fL (80.0-100.0) 02/18/24 16:06 MCH 32.5 pg (25.0-34.0) 02/18/24 16:06 MCHC 34.3 g/dL (32.0-36.0) 02/18/24 16:06 RDW Std Deviation 45.5 fL (36.4-46.3) 02/18/24 16:06 RDW Coeff of Nubia 13.2 % (11.5-14.5) 02/18/24 16:06 Plt Count 315 K/uL (130-400) 02/18/24 16:06 MPV 9.2 fL (9.4-12.4) L 02/18/24 16:06 Immature Gran % (Auto) 0.3 % 02/18/24 16:06 Neut % (Auto) 88.1 % 02/18/24 16:06 Lymph % (Auto) 6.9 % 02/18/24 16:06 Vernon % (Auto) 4.7 % 02/18/24 16:06 Eos % (Auto) 0.0 % 02/18/24 16:06 Baso % (Auto) 0.0 % 02/18/24 16:06 Neut # (Auto) 5.46 K/uL (1.40-6.50) 02/18/24 16:06 Lymph # (Auto) 0.43 K/uL (1.20-3.40) L 02/18/24 16:06 Vernon # (Auto) 0.29 K/uL (0.11-0.59) 02/18/24 16:06 Eos # (Auto) 0.00 K/uL (0.00-0.50) 02/18/24 16:06 Baso # (Auto) 0.00 K/uL (0.00-0.20) 02/18/24 16:06 Immature Gran # (Auto) 0.02 K/uL (0.01-0.20) 02/18/24 16:06 PT 10.3 Seconds (9.0-12.0) 02/18/24 16:06 INR 0.9 (0.9-1.1) 02/18/24 16:06 APTT 23 Seconds (21-31) 02/18/24 16:06 PTT Ratio 0.9 02/18/24 16:06 VBG pH 7.42 (7.36-7.41) H 02/18/24 21:30 VBG pCO2 45 mmHg (38-50) 02/18/24 21:30 VBG pO2 43 mmHg 02/18/24 21:30 VBG HCO3 29 mmol/L 02/18/24 21:30 VBG O2 Saturation 75.2 % 02/18/24 21:30 VBG Base Excess 4.0 mEq/L 02/18/24 21:30 Sodium 135 mmol/L (136-145) L 02/18/24 16:06 Potassium 4.1 mmol/L (3.5-5.1) 02/18/24 16:06 Chloride 101 mmol/L (98-107) 02/18/24 16:06 Carbon Dioxide 28 mmol/L (21-32) 02/18/24 16:06 Anion Gap 6 (3-11) 02/18/24 16:06 BUN 13 mg/dl (6-23) 02/18/24 16:06 Creatinine 0.68 mg/dl (0.6-1.2) 02/18/24 16:06 Est Cr Clr Drug Dosing 71.8 ml/min 02/18/24 16:06 Est GFR ( Amer) 101.3 ml/min 02/18/24 16:06 Est GFR (Non-Af Amer) 87.4 ml/min 02/18/24 16:06 BUN/Creatinine Ratio 19.1 (10-20) 02/18/24 16:06 Glucose 109 mg/dl (70-99(Fasting)) H 02/18/24 16:06 Calcium 9.9 mg/dl (8.6-10.3) 02/18/24 16:06 Magnesium 2.1 mg/dl (1.7-2.4) 02/18/24 16:06 Total Bilirubin 0.5 mg/dl (0.2-1.0) 02/18/24 16:06 AST 32 U/L (13-39) 02/18/24 16:06 ALT 70 U/L (7-52) H 02/18/24 16:06 Alkaline Phosphatase 93 U/L (34-104) 02/18/24 16:06 Troponin I High Sens 2.5 pg/ml (0-14) 02/18/24 18:28 B-Natriuretic Peptide 80 pg/ml (0-100) 02/18/24 16:55 Total Protein 7.1 gm/dl (6.0-8.3) 02/18/24 16:06 Albumin 4.4 gm/dl (3.4-5.0) 02/18/24 16:06 Globulin 2.7 gm/dl (2.5-4.0) 02/18/24 16:06 Albumin/Globulin Ratio 1.6 (0.9-2) 02/18/24 16:06 SARS-CoV-2 (PCR) NEGATIVE (Negative) 02/18/24 16:45 Influenza Type A (PCR) Negative (Neg) 02/18/24 16:45 Influenza Type B (PCR) Negative (Neg) 07/11/24 16:45 RSV (RT-PCR) Negative (Neg) 02/18/24 16:45 Impressions Chest X-Ray 02/18/24 15:52 XR chest 1V not portable HISTORY: Chest pain, nonspecific COMPARISON: Chest 01/27/2024. FINDINGS: The lungs are clear. Cardiac silhouette is normal in size. No pleural effusions. No pneumothorax. Prior cholecystectomy. Calcifications within the aortic knob. IMPRESSION: No acute process. ACT 112: Negative or not required by law. Electronically signed by: Nish Quinonez M.D. 02/18/2024 5:26 PM Diagnostic Findings EKG as per my interpretation : Rate 70, NSR, LAD, LAFB, no ischemia
[2024-02-18] MEDS ORDERED: PROMETHAZINE HCL 6.25 MG in SODIUM CHLORIDE 0.9% 50 ML IV PRN (23:10)
[2024-02-18] MEDS ORDERED: oxyCODONE HCL IR 5 MG TAB (IMMEDIATE RELEASE) PO PRN (23:10)
[2024-02-18] MEDS: guaiFENesin 600 MG TABCR PO SCH (23:40)
[2024-02-18] MEDS: SODIUM CHLORIDE 0.9% 1,000 ML IV ONE (23:42)
--- NOTE | 2024-02-19 00:10 | CT Scan Report ---
Exam(s): CTA CHEST IV Amt: 118 cc opti 320 EXAM: CT Angiography Chest With Intravenous Contrast CLINICAL HISTORY: Reason for exam: cp. TECHNIQUE: Axial computed tomographic angiography images of the chest with intravenous contrast. CTDI is 16.07 mGy and DLP is 522.82 mGy-cm. Automated exposure control was utilized for the study. A dose lowering technique was utilized adhering to the principles of ALARA. MIP reconstructed images were created and reviewed. COMPARISON: No relevant prior studies available. FINDINGS: Pulmonary arteries: Unremarkable. No acute pulmonary embolism. Aorta: Atherosclerotic changes of the aorta. No thoracic aortic aneurysm. Lungs: Mild centrilobular emphysema. Atelectasis at the lung bases. No mass. Pleural space: Unremarkable. No significant effusion. No pneumothorax. Heart: Unremarkable. No cardiomegaly. No significant pericardial effusion. No evidence of RV dysfunction. Bones/joints: Degenerative changes of the spine. No acute fracture. No dislocation. Soft tissues: Unremarkable. Lymph nodes: Unremarkable. No enlarged lymph nodes. Gallbladder and bile ducts: Cholecystectomy. IMPRESSION: 1. No acute pulmonary embolism. 2. Mild centrilobular emphysema. Electronically signed by: Orion Orellana MD 02/19/24 00:09 AM
[2024-02-19] MEDS: ALBUT/IPRATROP 3MG/0.5MG NEB 3 ML VIAL NEB SCH ×2 (01:08→05:55)
[2024-02-19] MEDS ORDERED: AZITHROMYCIN 250 MG TAB PO SCH (01:42)
[2024-02-19] MEDS ORDERED: hydrOXYzine HCl 10 MG TAB PO PRN (04:18)
[2024-02-19] MEDS: ACETAMINOPHEN 325 MG TAB PO PRN (04:27)
[2024-02-19 07:03] LABS: Hematocrit (blood only) 35.2 % (37.0-47.0); Hemoglobin 11.8 g/dl (12.0-16.0); Immature Granulocytes # (auto) 0.01 K/uL (0.01-0.20); Immature Granulocytes % (auto) 0.2 %; Lymphocytes # (auto) 0.41 K/uL (1.20-3.40); Lymphocytes % (auto) 8.6 %; Mean Corpuscular Hemoglobin 32.1 pg (25.0-34.0); Mean Corpuscular Hgb Conc 33.5 g/dL (32.0-36.0); Mean Corpuscular Volume 95.7 fL (80.0-100.0); Mean Platelet Volume 9.2 fL (9.4-12.4); Monocytes % (auto) 6.3 %; Neutrophils # (auto) 4.07 K/uL (1.40-6.50); Neutrophils % (auto) 84.9 %; Platelet Count 301 K/uL (130-400); RDW Coefficient of Variation 13.1 % (11.5-14.5); RDW Standard Deviation 46.1 fL (36.4-46.3); Red Blood Count 3.68 M/uL (4.20-5.40); White Blood Count 4.79 K/ul (4.8-10.8)
[2024-02-19 07:06] LABS: Estimated Average Glucose 126 mg/dl
[2024-02-19 07:34] LABS: Calcium 8.8 mg/dl (8.6-10.3); Creatinine Clr Calc Pharmacy 88.7 ml/min; Est GFR (African American) 108.6 ml/min; Est GFR (Non-African American) 93.7 ml/min
--- NOTE | 2024-02-19 08:43 | Pulmonary Consultation ---
Date of Consultation February 19, 2024 Assessment & Plan (1) Hypoxia: (2) COPD with emphysema: (3) Acute exacerbation of chronic obstructive pulmonary disease: (4) Chronic bronchitis: Plan CTA chest 02/18/2024 personally reviewed: Severe centrilobular emphysema appreciated bilaterally especially in the upper lobes Linear atelectasis of the right lower lobe Mild elevation of the right hemidiaphragm No significant mediastinal lymphadenopathy -- Acute exacerbation of COPD with emphysema and chronic bronchitis Gold E Alpha-1 level and phenotype within normal limit 07/14/2023 RSV, influenza A/B and COVID-19 negative negative 02/18/2024 Currently on Breo 200 and Incruse on a daily basis along with as needed albuterol QTc 413 02/18/2024, continue with azithromycin 250 mg Vbhhvd-Klyhcgtmy-Yrobpb on discharge Patient has been using Mucinex and flutter valve and hypertonic saline nebulized for chronic bronchitis AEC 60 on 03/02/2023 PFT 04/01/2023 personally reviewed: Severe obstructive lung dysfunction, insignificant bronchodilator response, air trapping, moderate decrease in DLCO FVC 1.97 L 69%, FEV1 0.9 L 42%, FEV1/FVC 47%, ERV 15%, RV 178%, TLC 111%, RV/TLC 159%, DLCO 45%, DLCO/VA 79% --Ex-smoker Approximately 83-lxgl-oiqu smoking history Quit in 2011 Encouraged to continue abstinence from smoking Next screening CAT scan will be February 2025 -- Chronic sinus headache with nasal congestion Continue with azelastine-fluticasone nasal spray on a daily basis and add [id number] antihistamine to it --Plan: Recommend to continue with steroids Will give doxycycline for 5 days, hold azithromycin while she is in the hospital, can resume azithromycin on discharge Fiximc-Laghflria-Fdekrd Continue with inhalers. If she is still having difficulty taking deep breaths and then I would rather give her nebulizers Brovana and budesonide Please note the above document was generated using voice recognition software. It may contain grammatical, syntax or spelling errors.Any formal questions or concerns about the content, text or information contained within the body of this dictation should be directly addressed to the provider for clarification. History of Present Illness Attending Physician: Good Fragoso MD History of Present Illness 73-year-old female coming to pulmonary for COPD and shortness of breath Past medical history: GERD, anxiety/depression Patient was last seen by me in the clinic on 12/11/2023 Patient recently traveled to [place] for her son's wedding She was complaining of worsening shortness of breath after coming back. Denies any exposure to any body who was sick She is compliant with her inhaler and uses on a regular basis. I had prescribed her prednisone because of the worsening shortness of breath along with antibiotic. She is still taking azithromycin Axvwvf-Asrhtaoiy-Nbtisp. Has been complaining of worsening chest tightness. Denies any phlegm. No dysuria or diarrhea Has been complaining of heaviness in the head and dry nose. When she does bring up the phlegm is mostly clear. No hemoptysis No nausea or vomiting No fever or chills No night sweats, no unintentional weight loss Social history: Approximately 19-pear-mtdy smoking history, quit in 2011, encouraged to continue abstinence from smoking. Social alcohol. Denies any illicit drug use. Used to work in [employer] for approximately 3 years. Did not wear mask at that time Pets: Has a puppy at home. No birds or poultry nearby Allergies: Seasonal Asthma: Asthma in mother was a non-smoker Lung cancer: No history of lung cancer in the family Allergies Allergy/AdvReac Type Severity Reaction Status Date / Time ciprofloxacin AdvReac Intermediate NAUSEA/VOMI Verified 02/15/24 10:52 TING montelukast AdvReac Intermediate Anxiety Verified 02/15/24 10:52 doxycycline AdvReac Mild GI Issues Verified 02/15/24 10:52 amlodipine AdvReac edema Verified 02/18/24 21:21 Home Medications Medication Instructions Recorded Confirmed Type cholecalciferol (vitamin D3) 25 25 mcg PO QAM 09/23/19 02/18/24 History mcg (1,000 unit) capsule (Vitamin D3) guaifenesin 600 mg tablet, 600 mg PO AMHS Congestion 02/02/23 02/18/24 History extended release 12 hr (Mucinex) azelastine 137 mcg-fluticasone 50 1 spray intranasal BID #23 grams 07/14/23 02/18/24 Rx mcg/spray nasal spray albuterol sulfate 2.5 mg/3 mL 2.5 mg inhalation Q4H PRN Wheezing 01/27/24 02/18/24 History (0.083 %) solution for nebulization albuterol sulfate 90 mcg/actuation 2 puff inhalation Q4 PRN 01/27/24 02/18/24 History aerosol inhaler cough,SOB,chest tightness azithromycin 250 mg tablet 250 mg PO 3XWK 01/27/24 02/18/24 History calcium carbonate 600 mg-vitamin 1 tab PO QAM 01/27/24 02/18/24 History D3 10 mcg (400 unit) tablet (Calcium 600 + D(3)) duloxetine 60 mg capsule,delayed 60 mg PO QAM 01/27/24 02/18/24 History release levocetirizine 5 mg tablet 5 mg PO HS 01/27/24 02/15/24 History pyridoxine (vitamin B6) 100 mg 100 mg PO QAM 01/27/24 02/18/24 History tablet (Vitamin B-6) fluticasone fur. 200 mcg-umeclid 1 inh inhalation DAILY #3 Inhalers 02/02/24 02/18/24 Rx 62.5 mcg-vilant 25 mcg inhalat.powder (Trelegy Ellipta) chlorpheniramine-dextromethorphan 1 tab PO BID PRN cough #30 tabs 02/08/24 02/18/24 Rx 4 mg-30 mg tablet fluticasone fur. 200 mcg-umeclid inhalation 02/18/24 History 62.5 mcg-vilant 25 mcg inhalat.powder (Trelegy Ellipta) losartan 25 mg tablet (Cozaar) 25 mg PO DAILY 02/18/24 02/18/24 History pantoprazole 20 mg tablet,delayed 20 mg PO DAILY 02/18/24 02/18/24 History release (Protonix) Patient History Medical History Hyperlipidemia Pt denies Leg length discrepancy Allergic rhinitis with postnasal drip Myofascial low back pain Hypertension Fibromyalgia Neuropathy due to Lyme disease Vertigo - has had in the ast - recently worsened, went to [place] ER on 01/27/24 at [facility], no findings, prescribed valium - as of PAT appt 02/03/24- vertigo mildly improving (saw PCP yesterday (02/02/24)- having patient hold metoprolol) Lumbar stenosis goes to pain mgmt - Dr. Cruz, gets pain injections Cervical spine pain goes to pain mgmt, has full ROM, SOB (shortness of breath) on exertion About 1-2 weeks ago- following with pulm- started on increased Trelegy inhaler- improving as of 02/03/24 PAT appt Lyme disease (10/2023) still fatigued - treated with abx Hx of Clostridium difficile infection (2016) History of COVID-19 (08/2022) continues with fatigue On home oxygen therapy wears at hs and prn daily- 1-2L Ovarian cyst Osteoporosis Osteoarthritis GERD (gastroesophageal reflux disease) well controlled and stable Asthma Sees Dr. Breaux ([place] [facility]) Recently started on increased dose of Trelegy as of 02/03/24 COPD (chronic obstructive pulmonary disease) daily inh x2 and prn inh x1, follows with [facility]m, wears O2 2L at night and during day prn Surgical History Hx of esophagogastroduodenoscopy (06/11/23) History of bronchoscopy History of removal of cyst nose & tonsils - Dr. Abrue on 12/27/20 knee "years ago" History of nasal surgery Hx of abdominoplasty Hx of breast reduction, elective History of colonoscopy History of cholecystectomy History of tooth extraction Family History Family/Other Allergies Asthma Mother , age 70 of an [place] Myocardial infarction Father , age 49 of a ruptured cerebral and Cerebral aneurysm Other No pertinent family history Denies family history of Ovarian cancer Breast cancer Colorectal cancer Social History Smoking Status: Never smoker Tobacco Type: Cigarettes Age Started Using Tobacco: 20; Age Quit Using Tobacco: 61; packs per day: 1; Second Hand Exposure: No; Do You Dip or Chew Tobacco: No; Hx Alcohol Use: No Hx Substance Use: No Preferred Language: [place]de[place] Communication Ability: Effective Visual Impairment: No Limitations Director Electronics Required: No Beliefs That Will Affect Care: None Current Living Situation: Alone current occupational status: retired 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 [employer] Other Information That Helps Us Care for You: No Feels Safe at Home: Yes Safety Concerns: Feels Safe At This Time Assistive Devices: Oxygen - at Night Review of Systems 2 Review of Systems: All systems reviewed & are unremarkable except as noted in HPI & below Physical Exam 2 Physical Exam: Constitutional: No acute distress HEENT: EOMI, PERRLA Respiratory system: Decreased air entry bilaterally, no wheeze, no rhonchi, no crackles CVS: S1-S2 positive, no murmurs or gallops Abdomen: Soft, nontender, nondistended, positive bowel sounds x4 Extremities: +2 pulses bilaterally radialis/ dorsalis pedis, no cyanosis, no edema Neuro: Awake alert oriented x3 Psych: Normal mood and affect G/U: No Fiore Skin: no rashes, warm and dry Lymphatic: no cervical or axillary lymphadenopathy Results & Data Results & Data Vital Signs (Past 12 Hours) Vital Signs Temp Pulse Pulse Resp BP BP Pulse Ox 02/19/24 08:22 69 20 113/63 97 02/19/24 07:03 68 02/19/24 03:09 02/19/24 03:09 02/19/24 03:09 02/19/24 03:09 36.8 C 64 14 122/67 99 02/18/24 23:46 72 18 130/75 98 02/18/24 22:52 72 19 97 02/18/24 22:06 70 02/18/24 21:33 71 19 122/69 94 Pulse Ox O2 Del Method O2 Del Method O2 Flow Rate O2 Flow Rate 02/19/24 08:22 Nasal Cannula 1 02/19/24 07:03 02/19/24 03:09 Nasal Cannula 1 02/19/24 03:09 Nasal Cannula 1 02/19/24 03:09 98 Nasal Cannula 1 02/19/24 03:09 Nasal Cannula 1 02/18/24 23:46 Nasal Cannula 1 02/18/24 22:52 Nasal Cannula 1 02/18/24 22:06 02/18/24 21:33 Nasal Cannula 1 Laboratory Results 02/19/24 05:54 02/19/24 05:54 PG Care Time/CCT Total # of Minutes Spent Total Time Spent with Patient: Total time spent is greater than 50% in coordination of care (as documented) at patient's floor/unit and/or counseling patient: [place] [address] INT INP/OBS CARE MIN Patient Type New Diagnoses Hypoxia R09.02 COPD with emphysema J43.9 Acute exacerbation of chronic obstructive pulmonary disease J44.1 Chronic bronchitis J42
[2024-02-19] MEDS ORDERED: ENOXAPARIN INJ 40 MG/0.4 ML SYR SQ SCH (09:00)
[2024-02-19] MEDS ORDERED: PANTOprazole 40 MG TAB PO SCH (09:00)
[2024-02-19] MEDS ORDERED: UMECLIDINIUM BROMIDE 62.5MCG/BLISTER 7 PUFFS/INHALER INH SCH (09:00)
[2024-02-19] MEDS ORDERED: NON-FORMULARY MEDICATION (Fluticasone-Umeclidin-Vilanter [Trelegy Ellipta] 200-62.5-25 mcg INH SCH (09:00)
[2024-02-19] MEDS: PANTOprazole 40 MG TAB PO SCH (09:09)
[2024-02-19] MEDS: predniSONE 20 MG TAB PO SCH (09:09)
[2024-02-19] MEDS: AZITHROMYCIN 250 MG TAB PO SCH (09:09)
[2024-02-19] MEDS: LOSARTAN POTASSIUM 25 MG TAB PO SCH (09:09)
[2024-02-19] MEDS: guaiFENesin 600 MG TABCR PO SCH (09:09)
[2024-02-19] MEDS: FLUTICASONE FUROATE 200MCG 14 PUFFS/INHALER INH SCH (09:10)
[2024-02-19] MEDS: DULoxetine HCL 60 MG CAP PO SCH (09:10)
[2024-02-19] MEDS: UMECLIDINIUM/VILANTEROL 62.5/25MCG 7 PUFFS/INHALER INH SCH (09:10)
[2024-02-19] MEDS: ENOXAPARIN INJ 40 MG/0.4 ML SYR SQ SCH (09:12)
--- NOTE | 2024-02-19 12:45 | Electrocardiogram Report ---
Test Reason : Blood Pressure : / mmHG Vent. Rate : 072 BPM Atrial Rate : 072 BPM P-R Int : 138 ms QRS Dur : 082 ms QT Int : 378 ms P-R-T Axes : 018 -05 021 degrees QTc Int : 413 ms Normal sinus rhythm Normal ECG When compared with ECG of 27-JAN-2024 15:22, No significant change was found Confirmed by Max Stanford ([id number]) on 02/19/2024 12:44:39 PM Referred By: REFERRED SELF Confirmed By:Dakota Stanford
[2024-02-19] MEDS ORDERED: SODIUM CHLORIDE 0.65% NA SOLN 45 ML (OCEAN) PRN (12:50)
--- OUTSIDE RECORDS SUMMARY | 2024-02-19 13:08 | External Medical Summary | Summary of Care ---
Author Name Unknown Organization [facility] Address [address] [facility] [place] [address] Phone [phone] Care Team Providers Care Denture Technician Name Role Phone Sukhwinder Littlejohn MD Primary Care Provider + Reason for Visit * Reason Onset Date Comments Surgery 02/16/2024 Pre Op Question - Clearance Encounter Details Date Type Department Care Team (Late st Contact Info) Description 02/16/2024 Telephone Family Practice [facility] [address] [place] [address] Sukhwinder Littlejohn MD [address] [place] [address] Surgery (Pre Op Question - Clearance) Allergies Active Allergy Reactions Criticality Noted Date Comments Amlodipine Edema Other 09/21/2023 LE edema significant at 5mg. Ciprofloxacin Abdominal pain 10/13/2016 Doxycycline Nausea/vomiting 10/07/2023 Montelukast Sodium Other (Please comment) 01/27/2018 Nervousness and insomnia documented as of this encounter (statuses as of 02/18/2024) Medications Medication Sig Dispensed Refills Start Date End Date Status Calcium Carbonate-Vitamin D (CALCIUM 600/VITAMIN D) 600-400 MG-UNIT per tablet Take 1 Tab by mouth daily. 1 Tab 0 05/30/2016 Active oxygen GASIndications:Noct urnal hypoxemia 2 LPM during all periods of sleep 1 Each 09/19/2019 Active Respiratory Therapy Supplies (NEBULIZER) CHAYO To be used with nebulizer medication every 4 hours as needed 1 Device 10/05/2019 Active Vitamin D3 25 MCG (1000 UT) Oral Capsule Take by mouth daily. Active Vitamin B-6 100 MG Oral Tablet (vitamin B-6) Take 1 Tablet by mouth in the morning. Active guaiFENesin ER 600 MG Oral Tablet Extended Release 12 Hour Take 1 Tablet by mouth in the morning and 1 Tablet before bedtime. Active Albuterol Sulfate (2.5 MG/3ML) 0.083% Inhalation Nebulization Solution (Proventil)Indicati ons:Moderate persistent asthma with acute exacerbation INHALE 1 VIAL VIA NEBULIZER EVERY 4 HOURS NEEDED FOR WHEEZING. , USE IN PLACE OF RESCUE INHALER. 225 mL 5 02/20/2023 Active Albuterol Sulfate HFA 108 (90 Base) MCG/ACT Inhalation Aerosol SolutionIndications :Asthma with COPD (chronic obstructive pulmonary disease) ([facility]) Inhale 2 Puffs by mouth every 4 hours as needed for Cough or Shortness of Breath. Or chest tightness. Use w/spacer 54 g 3 04/14/2023 Active Incruse Ellipta 62.5 MCG/ACT Inhalation Aerosol Powder Breath Activated (umeclidinium [place])Indications :Chronic obstructive pulmonary disease, unspecified (HCC) INHALE 1 PUFF BY MOUTH EVERY DAY 3 Each 3 04/14/2023 Active Azelastine-Fluticas one 137-50 MCG/ACT Nasal SuspensionIndicatio ns:Asthma with COPD (chronic obstructive pulmonary disease) ([facility]) SPRAY 1 SPRAY INTO BOTH NOSTRILS TWICE A DAY 3 g 3 04/14/2023 Active Fluticasone Furoate-Vilanterol 200-25 MCG/ACT Inhalation Aerosol Powder Breath Activated (BREO ellipta)Indications :Asthma with COPD (chronic obstructive pulmonary disease) ([facility]) INHALE 1 PUFF BY MOUTH DAILY 3 Each 3 04/14/2023 Active Sodium Fluoride 1.1 % Dental Paste APPLY THIN LAYER TO BRUSH, BRUSH THROUGHLY DAILY FOR 2 MINS DO NOT RINSE AND SPIT Active Venlafaxine HCl ER 150 MG Oral Capsule Extended Release 24 Hour (Effexor XR) Take 75 mg by mouth in the morning. Active Metoprolol Succinate ER 25 MG Oral Tablet Extended Release 24 Hour (toPROL XL)Indications:Esse ntial hypertension with goal blood pressure less than 140/90 Take 1 Tablet by mouth in the morning. 90 Tablet 3 09/21/2023 Active Erythromycin 5 MG/GM Ophthalmic Ointment Instill 0.25 Inches into the right eye in the morning and 0.25 Inches before bedtime. 3.5 g 10/21/2023 Active Additional Information Patient taking differently:0.25 Inch Right eye BID (.AM/PM),As needed, Reported on 02/02/2024 Nystatin 805544 UNIT/ML Mouth/Throat SuspensionIndicatio ns:Thrush Swish and swallow 5 mL in the morning and 5 mL at noon and 5 mL in the evening and 5 mL before bedtime. For thrush.. 240 mL 1 12/31/2023 Active Additional Information Patient not taking.Reported on 02/02/2024 DULoxetine HCl 60 MG Oral Capsule Delayed Release Particles (Cymbalta) Take 1 Capsule by mouth in the morning and 1 Capsule before bedtime. 01/02/2024 Active diazePAM 5 MG Oral Tablet (Valium) Take 1 Tablet by mouth 3 times a day as needed for Other (dizziness or vertigo). Active Pantoprazole Sodium 20 MG Oral Tablet Delayed Release (Protonix)Indicatio ns:Gastroesophageal reflux disease without esophagitis Take 1 Tablet by mouth in the morning. 30 minutes before the first meal of the day. Do not crush, split or chew the tablet. 90 Tablet 02/02/2024 05/02/2024 Active Losartan Potassium 25 MG Oral Tablet (Cozaar)Indications :HTN, goal below 130/80 Take 1 Tablet by mouth in the morning. 30 Tablet 11 02/12/2024 Active documented as of this encounter (statuses as of 02/18/2024) Active Problems Problem Noted Date Diagnosed Date Posterior vitreous detachment of right eye 10/06 Right ovarian cyst 03/25/2023 Early satiety 03/25/2023 History of 2019 novel coronavirus disease (COVID -19) 09/24/2022 Overview: 09/01 Nasal septal defect 04/18/2022 Recurrent major depressive disorder 11/20/2021 Moderate persistent asthma without complication 12/28/2019 MEDICATION USE AGREEMENT 06/24/2019 Moderate episode of recurrent major depressive d isorder 01/12/2019 REGINA (generalized anxiety disorder) 01/12/2019 Well adult exam 05/30/2018 Overview: PULM--Dr Chi Nicholson in past, now Jay Jay. 07/02 egd [facility] very mild chronic gastritis, H Pylori neg. 04/01 CT Abd--+ovarian cysts-referred [facility] [employer] 07/31 [facility] TTE: normal EF. Mild aorta & mitral valve thickening, no stenosis. 02/26 DEXA osteopenia, 02/26 MRI brain mild, Neurocog test pending. [address] screens 03/27 EGD normal Plantar fasciitis, bilateral 04/16/2018 Generalized osteoarthritis 04/16/2018 DDD (degenerative disc disease), cervical 2017 Lumbar degenerative disc disease 12/14/2017 Primary osteoarthritis of right hip 12/14/2017 Left cervical radiculopathy 12/14/2017 COPD, group D, by GOLD 2017 classification 05/21 Ovarian mass 02/23/2014 Overview: 02/20 on US cyst. Ck MRI ordered. Refer [employer]. CA125 WNl---appears to be hemorrhagic cyst. Dyslipidemia, goal LDL below 130 03/16/2013 Nocturnal hypoxemia 12/03/2012 Overview: 01/11/14 Nocturnal oximetry, 2 LPM -- mean 94%, low 81%, <89% 19.5 mins, AMDAO 1.1 10/31/12 PSG -- no SDB, nocturnal hypoxia noted 2 LPM AHP History of tobacco use 12/02/2011 ADVANCE DIRECTIVE INFORMATION 03/09/2007 Overview: No, Advance Directive brochure given to patient. Mailed 09/22/2011 No, Advance Directive brochure given to patient. Other allergic rhinitis 06/05/2005 Overview: ICD-10 update of inactive term Fibromyalgia 03/17/2003 HTN, goal below 130/80 12/14/2002 Disorder of intervertebral disc Overview: L4-L5 Hiatal hernia Overview: small noted on [facility] CT documented as of this encounter (statuses as of 02/18/2024) Resolved Problems Problem Noted Date Diagnosed Date Resolved Date COPD, group B, by GOLD 2017 classification 03/21/2019 11/22/2020 Overview: Per COPD GOLD Classification Chronic respiratory failure with hypoxia, on home O2 therapy 02/23/2019 11/08/2020 C. difficile colitis 03/23/2017 019 Neck swelling 01/27/2017 01/12/2019 Overview: Normal CT scan, ENT attributed to prominent fat pad Thickened endometrium 02/23/20142018 Overview: 04/23 EAB Benign. [employer]. COPD, severe 02/16/2012 03/24/2019 Overview: 09/27 CT chest no nodules. MEETS yearly CT screen criteria Seeing Syl 05/25 add Yuly higher dose, suspect asthma component. [facility] PFT-Pulmonary function test revealed evidence of moderate airflow obstruction. There was no significant change in spirometry measured following bronchodilator administration. Lung volume measurements revealed evidence of air trapping. Diffusion capacity was not corrected, but hemoglobin concentration was moderately reduced. Localized adiposity 08/17/2007 01/28/20 17 Hypertrophy of breast 02/03/20062016 Tobacco use disorder 012 Lumbosacral spondylosis 01/09 COPD (chronic obstructive pulmonary disease) 02/16/2012 documented as of this encounter (statuses as of 02/18/2024) Immunizations Name Administration Dates Next Due COVID-19 mRNA, LNP-s, No Pre serve, 2-Dose Series (Moderna) 10/11/2020,09/14/2020 COVID-19, mRNA, LNP-s, PF, B ooster, 100mcg/0.5mg (Moderna) 07/25/2021 Covid-19, Mrna, Lnp-s, Pf, B ivalent, 30 Mcg, IM, 12 yrs and above (Pfizer) 09/23/2022,07/23/2022 H1N1 2009 Influenza, IM 07/25/2009 Pneumococcal Conjugate Vacc, 13 Valent (Prevnar) 04/10/2020,08/17/2015 Pneumococcal Conjugate Vacci ne, 20-valent ([id number]) 03/12/2023 Pneumococcal Polysaccharide PPV23 (Pneumovax) 09/22/2016,07/25/2009 RSV Vac., Recomb, Adjuvant, PF,0.5 Ml (Arexvy) 06/13/2023 Season Influenza, Quad, PF, Adjuvanted, 65+ Yrs, IM (FLUAD) 04/10/2020 Seasonal Influenza, PF, 6 M & above, IM , (FluLaval or Fluzone) 05/14/2018 Seasonal Influenza, Quadriva lent Hd (Fluzone Hd) 05/28/2023,06/17/2022,05/23/2021 Seasonal Influenza, Quadriva lent, No Preserve, IM 04/27/2017,05/21/2016,05/31/2015 Seasonal Influenza, Split, I IV3, With Preserve, Inj 04/17/2014,04/24/2013,06/02/2012,06/11,07/25/2009,08/28/2008(Deferred: Patient Refused) Seasonal Influenza, Trivalen t, Adjuvanted, 65+ yrs 05/25/2019 TD - Tetanus/Diptheria (ADULT) 2005 TDAP (age 10 and older)(Boostrix) 03/12/2023 TDAP, Age 7 and older, IM (Adacel) 02/04/2011 Varicella Zoster Vaccine (Adult) 11/11/2011 Zoster Vaccine Recombinant (Shingrix) 01/31/2020 ,08/31/2019 documented as of this encounter Social History Tobacco Use Types Packs/Day Years Used Date Smoking Tobacco: Former Cigarettes 1 30 0 09/14/1981 - 09/14/2011 Smokeless Tobacco: Never Alcohol Use Standard Drinks/Week Comments Not Currently 0 (1 standard drink = 0.6 oz pur e alcohol) PHQ-2 Answer Date Recorded PHQ Adult Total Score 0 08/24/2023 Utilities Answer Date Recorded Do you have trouble paying y our heating, water, or electric bill? (Adult - for ages 18 years and over) Not on file 01/26/2024 Is your family able to pay t he heat, water, or electric bill? (Household - for ages 0-17 years) Not on file 01/26/2024 Does your family have access to good internet? (Household - for ages 0-17 years) Not on file 01/26/2024 Social Connections Answer Date Recorded How often do you feel lonely or isolated from those around you? (Adult - for ages 18 years and over) Not on file 01/26/2024 Sex and Gender Information Value Date Recorded Sex Assigned at Not on file Gender Identity Not on file Sexual Orientation Not on file Job Start Date Occupation Industry Not on file Not on file Not on file documented as of this encounter Miscellaneous Notes * Telephone Encounter - Agnes Lilly LPN - 02/18/2024 11:30 AM EDT Patient returned call, she is now agreeable to making a pre-op appt. She wanted to see PCP, no appts available. Scheduled 02/[address] Thompson at 3pm. * Telephone Encounter - Agnes Lilly LPN - 02/18/2024 8:51 AM EDT Spoke with the patient, advised an appointment for pre-op clearance. Offered an appt today and nextweek. Declines an appt at this time. Explained while a clearance is needed. She is going to call [facility] (Obgyn's office) and see if she can reschedule her surgery since she is having difficulty with her COPD. Informs me she is going to call back once she speaks with them about rescheduling and pre-op. * Telephone Encounter - Agnes Lilly LPN - 02/18/2024 8:12 AM EDT Coreen calling back from [facility] Pre Anesthesia to follow up on my message on 02/15. The [facility] would stilllike the patient be cleared for surgery. Advised Coreen I will contact the patient to schedule a pre-op appt. * Telephone Encounter - Agnes Lilly LPN - 02/16/2024 8:32 AM EDT Coreen calling from Pre Anesthesia at [facility]. Patient told the Pre Anesthesia PA-C on Thursday before speaking with our office that her dizziness was improving, but not resolved. Patient's having surgery to remove both fallopian tubes and ovaries on 02/25, so Coreen asked if the patient is cleared to have surgery due to the dizziness. Informed her that on 02/11 patient declined any further dizziness and BP med was changed to Losartan,repeat blood work in 2 weeks. Coreen is going to consult with the PA-C and see what's advised given the situation at this time andwill call back. I don't see any documentation in the patient's chart that it was discussed about her having surgeryon 02/25. Flaco, patient saw you on 02/01 regarding the dizziness. Should she have an additional apptfor pre op clearance? documented in this encounter Plan of Treatment Upcoming Encounters Date Type Department Care Team (Late st Contact Info) Description 02/24/2024 3:00 PM EDT Office Visit [facility] [address] [place] [address] Debo Thompson, DO [address] [place] [address] 03/01/2024 8:00 AM EDT Office Visit [facility], [facility] [address] [place] [address] Osiel Ramires, DO [address] [place] [address] 03/10/2024 2:40 PM EDT Office Visit [facility] [address] [place] [address] Flaco Manzano CRNP [address] [place] [address] 03/30/2024 11:30 AM EDT Office Visit Gastroenterology, [facility] [address] [place] [address] Shanon Martell CRNP [address] [place] [address] 05/21/2024 8:20 AM EDT Office Visit Family Practice [facility] [address] [place] [address] Sukwhinder Littlejohn MD [address] [place] [address] Health Maintenance Due Date Last Done Comments Cologuard 1996 Sigmoidoscopy 1996 Fecal Occult Blood Test 09/09/2011 09/09/2010, 11/21 COVID-19 Vaccine ( season) 2023 06/13/2023, 09/23/2022, 07/23/2022, Additional history exists Influenza Vaccine (FLU shot) (#1) 2024 05/28/2023, 06/17/2022, 05/23/2021, Additional history exists GFR 05/28/2024 05/28/2023, 04/10, 03/02/2023, Additional history exists Depression Monitoring 08/24/2024 08/24/2023 O2 ASSESSMENT COMPLETED IN PAST YEAR FOR COPD 10/07/2024 10/07/2023 Albumin/Creatinine Ratio 11/20/2024 11/20/2021 Mammogram 11/26/2024 11/27/2023, 08/2022, 07/09/2021, Additional history exists Lipid Panel 01/23/2027 01/23/2022, 12/2017, 09/30/2013, Additional history exists DXA Scan 02/13/2027 02/14/2020, 01/2015, 06/17/2011 DTaP,Tdap,and Td Vaccines (3 - Td or Tdap) 03/12/2033 03/12/2023, 02/04/2011, 2005 Colonoscopy 06/11/2033 06/11/2023, 04/03/2011 Colorectal Cancer Screening 06/11/2033 *ADVANCE DIRECTIVE NOT ON FILE Completed 11/28/2016 Zoster Vaccines Completed 01/31/2020, 08/11, 11/11/2011 Alpha-1 Antitrypsin Completed 11/22/2020 Pneumococcal Vaccine: 65+ Years Completed 03/12/2023, 04/10/2020, 09/22/2016, Additional history exists Lung Cancer Screening Completed 04/01/2023 , 06/05/2022, 02/24/2022, Additional history exists HPV (Gardasil) Vaccine Aged Out No lo nger eligible based on patient's age to complete this topic Hepatitis B Vaccine Aged Out No longe r eligible based on patient's age to complete this topic MENINGOCOCCAL (MENACTRA/MENVEO) Aged Out No longer eligible based on patient's age to complete this topic documented as of this encounter Medical Devices Not on filedocumented as of this encounter Advance Directives * Full Code (Latest Code Status on File) Date Activated Date Inactivated Comments 10/07/2023 8:13 AM 10/07/2023 2:40 PM This order r eflects the patients wishes and were consensually agreed upon. Question Answer Comments Discussion of Advance Direct amie occurred with: Not Discussed due to patient's condition Care Teams Denture Technician Relationship Specialty Start Date End Date Sukhwinder Littlejohn MD [address] [place] [address] PCP - General Family Medicine 10/09/18 documented as of this encounter
--- OUTSIDE RECORDS SUMMARY | 2024-02-19 13:09 | External Medical Summary | Summary of Care ---
Author Name Unknown Organization [facility] Address [address] [facility] [place] [address] Phone [phone] Care Team Providers Care Fishing Guide Name Role Phone Sukhwinder Littlejohn MD Primary Care Provider + Reason for Visit * Reason Onset Date Comments Advice 02/16/2024 Encounter Details Date Type Department Care Team (Late st Contact Info) Description 02/16/2024 Telephone Family Practice [facility] [address] [place] [address] Sukhwinder Littlejohn MD [address] [place] [address] Advice Allergies Active Allergy Reactions Criticality Noted Date [...] :Asthma with COPD (chronic obstructive pulmonary disease) ([facility]) Inhale 2 Puffs by mouth every 4 hours as needed for Cough or Shortness of Breath. Or chest tightness. Use w/spacer 54 g 3 04/14/2023 Active Incruse Ellipta 62.5 MCG/ACT Inhalation Aerosol Powder Breath Activated (umeclidinium [place])Indications :Chronic obstructive pulmonary disease, unspecified ([facility]) INHALE 1 PUFF BY MOUTH EVERY DAY 3 Each 3 04/14/2023 Active Azelastine-Fluticas one 137-50 MCG/ACT Nasal SuspensionIndicatio ns:Asthma with COPD (chronic obstructive pulmonary disease) ([facility]) SPRAY 1 SPRAY INTO BOTH NOSTRILS TWICE A DAY 3 g 3 04/14/2023 Active Fluticasone Furoate-Vilanterol 200-25 MCG/ACT Inhalation Aerosol Powder Breath Activated (BREO ellipta)Indications :Asthma with COPD (chronic obstructive pulmonary disease) ([facility]) INHALE 1 PUFF BY MOUTH DAILY 3 [...] BID (.AM/PM),As needed, Reported on 02/02/2024 Nystatin [id number] UNIT/ML Mouth/Throat SuspensionIndicatio ns:Thrush Swish and swallow [...] the morning. 30 Tablet 11 02/12/2024 Active Azithromycin 250 MG Oral Tablet (Zithromax) 1 tab MWF 3 Tablet 02/17/2024 Active documented as of this encounter (statuses [...] in past, now Jay Jay. 07/02 egd [facility] very mild chronic gastritis, H Pylori neg. 04/01 CT Abd--+ovarian cysts-referred [facility] 07/31 [facility] TTE: normal EF. Mild aorta & mitral [...] on US cyst. Ck MRI ordered. Refer [facility]. CA125 WNl---appears to be hemorrhagic cyst. Dyslipidemia, goal LDL below 130 03/16/2013 Nocturnal hypoxemia 12/03/2012 Overview: 01/11/14 Nocturnal oximetry, 2 LPM -- mean 94%, low 81%, <89% 19.5 mins, AMADO 1.1 10/31/12 PSG -- no SDB, nocturnal [...] L4-L5 Hiatal hernia Overview: small noted on [facility] CT documented as of this encounter (statuses [...] Thickened endometrium 02/23/20142018 Overview: 04/23 EAB Benign. [facility]. COPD, severe 02/16/2012 03/24/2019 Overview: 09/27 CT chest no nodules. MEETS yearly CT screen criteria Seeing Syl 05/25 add Lindsay higher dose, suspect asthma component. [facility] PFT-Pulmonary function test revealed evidence of [...] (Prevnar) 04/10/2020,08/17/2015 Pneumococcal Conjugate Vacci ne, 20-valent ([id number]) 03/12/2023 Pneumococcal Polysaccharide PPV23 (Pneumovax) 09/22/2016,07/25/2009 RSV [...] Encounter - Agnes Lilly LPN - 02/18/2024 9:32 AM EDT Patient aware and verbalized understanding, will comply * Telephone Encounter - Ree Samuel LPN - 02/17/2024 3:07 PM EDT [employer] message sent. * Telephone Encounter - Sukhwinder Littlejohn MD - 02/17/2024 9:33 AM EDT Ok to take both together. * Telephone Encounter - Deedee Oliver OSA - 02/16/2024 3:18 PM EDT Pt calling in stating she was put on Losartan 25 mg for her bp, and Dr. Hall ([place]?) pulmonary at [facility] prescribed her Azithromycin 250 mg three times a week Mon, Wed, Fri. Pt was doing research and saw there may be a reaction between the two medications and she would like to know if PCP thinks its okay for her to keep taking these both? Please advise documented in this encounter Plan of Treatment Upcoming Encounters Date Type Department Care Team (Late st Contact Info) Description 03/10/2024 2:40 PM EDT Office Visit [facility] [address] [facility] [place] [address] Flaco Manzano CRNP [address] [place] [address] 03/30/2024 11:30 AM EDT Office Visit [facility], [facility] [address] [place] [address] Shanon Martell CRNP [address] [place] [address] 05/21/2024 8:20 AM EDT Office Visit Family Practice [facility] [address] [facility] [place] [address] Sukhwinder Littlejohn MD [address] [place] [address] Health Maintenance Due Date Last Done Comments [...] Albumin/Creatinine Ratio 11/20/2024 11/20/2021 Mammogram 11/26/2024 11/27/2023, 0308/2022, 07/09/2021, Additional history exists Lipid Panel 01/23/2027 01/23/2022, 1012/2017, 09/30/2013, Additional history exists DXA Scan 02/13/2027 [...] Discussed due to patient's condition Care Teams Fishing Guide Relationship Specialty Start Date End Date Sukhwinder Littlejohn MD [address] [place] [address] PCP - General Family Medicine 10/09/18 documented as of this encounter
--- OUTSIDE RECORDS SUMMARY | 2024-02-19 13:09 | External Medical Summary | Summary of Care ---
Author Name Unknown Organization [facility] Address [address] [facility] [place] [address] Phone [phone] Care Team Providers Care High Risk Case Manager Name Role Phone Sukhwinder Littlejohn MD Primary Care Provider + Reason for Visit * Reason Onset Date Comments Referral 02/16/2024 Encounter Details Date Type Department Care Team (Late st Contact Info) Description 02/16/2024 Telephone Family Practice [facility] [address] [place] [address] Sukhwinder Littlejohn MD [address] [place] [address] Referral Allergies Active Allergy Reactions Criticality Noted Date [...] :Asthma with COPD (chronic obstructive pulmonary disease) ([facility]) Inhale 2 Puffs by mouth every 4 hours as needed for Cough or Shortness of Breath. Or chest tightness. Use w/spacer 54 g 3 04/14/2023 Active Incruse Ellipta 62.5 MCG/ACT Inhalation Aerosol Powder Breath Activated (umeclidinium [place])Indications :Chronic obstructive pulmonary disease, unspecified ([facility]) INHALE 1 PUFF BY MOUTH EVERY DAY 3 Each 3 04/14/2023 Active Azelastine-Fluticas one 137-50 MCG/ACT Nasal SuspensionIndicatio ns:Asthma with COPD (chronic obstructive pulmonary disease) ([facility]) SPRAY 1 SPRAY INTO BOTH NOSTRILS TWICE A DAY 3 g 3 04/14/2023 Active Fluticasone Furoate-Vilanterol 200-25 MCG/ACT Inhalation Aerosol Powder Breath Activated (BREO ellipta)Indications :Asthma with COPD (chronic obstructive pulmonary disease) ([facility]) INHALE 1 PUFF BY MOUTH DAILY 3 [...] BID (.AM/PM),As needed, Reported on 02/02/2024 Nystatin [id number] UNIT/ML Mouth/Throat SuspensionIndicatio ns:Thrush Swish and swallow [...] Well adult exam 05/30/2018 Overview: PULM--Dr Chi Lyn in past, now Jay Jay. 07/02 egd [facility] very mild chronic gastritis, H Pylori neg. 04/01 CT Abd--+ovarian cysts-referred SUPERVISOR ASBEST[employer] REMOVAL 07/31 [facility] TTE: normal EF. Mild aorta & mitral [...] on US cyst. Ck MRI ordered. Refer SUPERVISOR ASBEST[employer] REMOVAL. CA125 WNl---appears to be hemorrhagic cyst. Dyslipidemia, [...] L4-L5 Hiatal hernia Overview: small noted on [facility] CT documented as of this encounter [...] Thickened endometrium 02/23/20142018 Overview: 04/23 EAB Benign. [employer]VIS[employer] ASBE[employer] REMOVAL. COPD, severe 02/16/2012 03/24/2019 Overview: 09/27 CT chest no nodules. MEETS yearly CT screen criteria Seeing Syl 05/25 add Olla higher dose, suspect asthma component. [facility] PFT-Pulmonary function test revealed evidence [...] 30 Mcg, IM, 12 yrs and above ([facility]) 09/23/2022,07/23/2022 H1N1 2009 Influenza, IM 07/25/2009 Pneumococcal Conjugate Vacc, 13 Valent (Prevnar) 04/10/2020,08/17/2015 Pneumococcal Conjugate Vacci ne, 20-valent ([id number]) 03/12/2023 Pneumococcal Polysaccharide PPV23 (Pneumovax) 09/22/2016,07/25/2009 RSV [...] EDT Patient aware and verbalized understanding, will comply. * Telephone Encounter - Sukhwinder Littlejohn MD - 02/17/2024 9:36 AM EDT We can check her pulses / check for claudication history on her visit here 03/10. If abnormal , then we'd order further testing. If that is abnormal, then we'd have her see Dr Mancilla at that point. Hold off on vascular referral for now Cc: DIPAK Martino * Telephone Encounter - Deedee Oliver OSA - 02/16/2024 3:13 PM EDT Has the patient been seen for this problem? (Y/N)?: yes If No, an appt needs to be scheduled before a referral will be placed (exception: proceed with referral request if referral request is for a yearly routine appointment with speciality) Patient Name: Maria G Walters Patient Primary care provider: Sukhwinder Littlejohn MD Does this need to be an insurance referral (Y/N)?: n/a If Yes, does the insurance referral need to be placed into the [employer] system? Name of preferred specialist: Dr. Mancilla Type of specialist: vascular surgery Location of specialist: [facility] Specialist's Phone #: [phone] Specialist's Fax #: [phone] Reason for visit: Pt states she was in the ER and they told her she should see vascular. Pt states COPD and trouble with legs Date of visit: Needs referral first documented in this encounter Plan of Treatment Upcoming Encounters Date Type Department Care Team (Late st Contact Info) Description 03/10/2024 2:40 PM EDT Office Visit [facility] [address] [place] [address] Flaco Manzano CRNP [address] [place] [address] 03/30/2024 11:30 AM EDT Office Visit Gastroenterology, [facility] [address] [place] [address] Shanon Martell CRNP [address] [place] [address] 05/21/2024 8:20 AM EDT Office Visit [facility] [address] [place] [address] Sukhwinder Littlejohn MD [address] [place] [address] Health Maintenance Due Date Last Done Comments [...] Discussed due to patient's condition Care Teams High Risk Case Manager Relationship Specialty Start Date End Date Sukhwinder Littlejohn MD [address] [address] PCP - General Family Medicine 10/09/18 documented as of this encounter
--- OUTSIDE RECORDS SUMMARY | 2024-02-19 13:09 | External Medical Summary | Summary of Care ---
Author Name Unknown Organization [facility] Address [address] [place] [address] Phone [phone] Care Team Providers Care Eyelet Punch Operator Name Role Phone Sukhwinder Littlejohn MD Primary Care Provider + Reason for Referral * Evaluate & Treat - Unlimited Visits (Within 10 days (routine)) - Authorized Specialty Diagnoses / Procedures Referred By Contac t Referred To Contact Pain Management / Pain Medicine Diagnoses Lumbar degenerative disc disease Sukhwinder Littlejohn MD [address] [facility] [place] [address] Referral ID Status Reason Start Date Expiration Date Visits Requested Visits Authorized [id number] Authorized Specialty Services Required 02/18/2024 999 999 Question Answer Referral Priority Within 10 days (routine) [facility] this [facility] be scheduled? [facility] Reason for referral? Interventional Pain Management - (Injection) What condition is the patient being referred for? Lumbar Radiculopathy What is the preferred location to have this test performed? [facility] Comments Pt has had SONIYA in past. Saw [facility]. Would like 2nd opinion, possible nerve ablation Patient Name: Maria G Walters Date of : 1950 Department Phone Number: MRI or CT (if unable to have a MRI) is recommended if any of the following apply: 1. Patient has neck or back pain with radiation to extremities. A previous MRI will be accepted if symptoms unchanged since prior MRI. 2. Spinal surgery since last MRI. If yes, order a MRI with and without contrast. 3. Hx or ongoing cancer treatment. Patient will need spine x-ray (Ap/Lat) for axial neck or back pain if not done previously. Fax No. [facility] [phone] or contact front office specialist [phone] Fax No. [facility] [phone] or contact front office specialist [phone] Fax No. [facility] [phone] or contact front office specialist [phone] Reason for Visit * Reason Onset Date Comments Referral 02/16/2024 Encounter Details Date Type Department Care Team (Late st Contact Info) Description 02/16/2024 Telephone Family Practice [facility] [address] [place] [address] Sukhwinder Littlejohn MD [email or web address] [place] [address] Referral Allergies Active Allergy Reactions Criticality Noted [...] :Asthma with COPD (chronic obstructive pulmonary disease) ([facility]) Inhale 2 Puffs by mouth every 4 hours as needed for Cough or Shortness of Breath. Or chest tightness. Use w/spacer 54 g 3 04/14/2023 Active Incruse Ellipta 62.5 MCG/ACT Inhalation Aerosol Powder Breath Activated (umeclidinium [place])Indications :Chronic obstructive pulmonary disease, unspecified ([facility]) INHALE 1 PUFF BY MOUTH EVERY DAY 3 Each 3 04/14/2023 Active Azelastine-Fluticas one 137-50 MCG/ACT Nasal SuspensionIndicatio ns:Asthma with COPD (chronic obstructive pulmonary disease) ([facility]) SPRAY 1 SPRAY INTO BOTH NOSTRILS TWICE A DAY 3 g 3 04/14/2023 Active Fluticasone Furoate-Vilanterol 200-25 MCG/ACT Inhalation Aerosol Powder Breath Activated (BREO ellipta)Indications :Asthma with COPD (chronic obstructive pulmonary disease) ([facility]) INHALE 1 PUFF BY MOUTH [...] BID (.AM/PM),As needed, Reported on 02/02/2024 Nystatin [id number] UNIT/ML Mouth/Throat SuspensionIndicatio ns:Thrush Swish and swallow [...] in past, now Jay Jay. 07/02 egd [facility] very mild chronic gastritis, H Pylori neg. 04/01 CT Abd--+ovarian cysts-referred SUPERINTENDENT LOGGING 07/31 [facility] TTE: normal EF. Mild aorta & mitral valve thickening, no stenosis. 02/26 DEXA osteopenia, 02/26 MRI brain mild, Neurocog test pending. [address] screens 03/27 EGD normal Plantar fasciitis, bilateral 04/16/2018 Generalized osteoarthritis 04/16/2018 DDD (degenerative disc disease), cervical 2017 Lumbar degenerative disc disease 12/14/2017 Primary osteoarthritis of right hip 12/14/2017 Left cervical radiculopathy 12/14/2017 COPD, group D, by GOLD 2017 classification 05/21 Ovarian mass 02/23/2014 Overview: 02/20 on US cyst. Ck MRI ordered. Refer SUPERINTENDENT LOGGING. CA125 WNl---appears to be hemorrhagic cyst. Dyslipidemia, [...] L4-L5 Hiatal hernia Overview: small noted on [facility] CT documented as of this [...] Thickened endometrium 02/23/20142018 Overview: 04/23 EAB Benign. [employer]PER[employer]END[employer] LOGGING. COPD, severe 02/16/2012 03/24/2019 Overview: 09/27 CT chest no nodules. MEETS yearly CT screen criteria Seeing Syl 05/25 add Nelson higher dose, suspect asthma component. [facility] PFT-Pulmonary function test revealed [...] (Prevnar) 04/10/2020,08/17/2015 Pneumococcal Conjugate Vacci ne, 20-valent ([id number]) 03/12/2023 Pneumococcal Polysaccharide PPV23 (Pneumovax) 09/22/2016,07/25/2009 RSV [...] encounter Miscellaneous Notes * Telephone Encounter - Lianne Issa OSA - 02/18/2024 9:53 AM EDT Appt scheduled with pt * Telephone Encounter - Sukhwinder Littlejohn MD - 02/18/2024 9:35 AM EDT Referral signed, asks to be put on cancellation list * Telephone Encounter - Agnes Lilly LPN - 02/18/2024 8:57 AM EDT Patient aware and verbalized understanding. She's already had an epidural injection and wants to check out getting an ablation. Declines oral medication intervention at this time. Patient is upset that the referral wasn't signed sooner and they don't have any openings soon. Apologized to patient and advised her to contact Dr. Ramires's scheduling to ask for the soonest appt and be placed on the cancellation list as well. * Telephone Encounter - Sukhwinder Littlejohn MD - 02/17/2024 8:53 AM EDT Nursing--please let pt know that Dr Ramires & his team does steroid injection and injections that burn nerves--the same as [facility] Pain Medicine. They don't offer different things. If she still wants to see Dr Ramires to review these injection options, I'll sign referral. For Non-injection options, she can meet with our [facility] pharmacy team to discuss pain medicine options OR PT Or Chiro Or Acupuncture (insurance typically doesn't cover chiro or acupuncture, but both can help) She can also f/u with Flaco to review all these options in person together. * Telephone Encounter - Susan Yo LPN - 02/17/2024 8:30 AM EDT Called pt, says L4-5, stenosis. Went to [facility] Pain management, and they only wanted to do pain injections, and she wants 2nd opinion. Also has scoliosis. Wants to see Dr. Ramires here at [facility]. Wants to get in soon. Having lots of pain. Says the injections never worked for her, but also does not want to have surgery. Just wants 2nd opinion. * Telephone Encounter - Sukhwinder Littlejohn MD - 02/16/2024 9:33 PM EDT Nursing-please call patient to get more info. I'm sorry I wasn't able to review messages until late tonight due to seeing patients today. I can sign referral and she can call to ask to be put on cancellation list to see if can be seen sooner. However, I need diagnosis. I'm not clear what her current pain situation is--low back? Neck? Has she done PT or had imaging for this? Typically we do all these before seeing pain management. We can schedule sooner f/u with [facility] as well. * Telephone Encounter - Deedee Oliver OSA - 02/16/2024 3:12 PM EDT Pt calling in about request below. Pt states she lost two good appts for this month because referral was not signed, now she can't see anyone until April. Please advise * Telephone Encounter - Amie Corrales OSA - 02/16/2024 12:26 PM EDT Pt advised pain management can see her tomorrow. Is there anyway Dr Littlejohn and escalate the referral. Please call pt back. Thank you * Telephone Encounter - Dat Devlin OSA - 02/16/2024 8:24 AM EDT Has the patient been seen for this problem? (Y/N)?: yes If No, an appt needs to be scheduled before a referral will be placed (exception: proceed with referral request if referral request is for a yearly routine appointment with speciality) Patient Name: Maria G Walters Patient Primary care provider: Sukhwinder Littlejohn MD Does this need to be an insurance referral (Y/N)?: no If Yes, does the insurance referral need to be placed into the [employer] system? Name of preferred specialist: [facility] Type of specialist: Pain Management Location of specialist: [facility]ist[facility] Phone #: Specialist's Fax #: Reason for visit: back pain Date of visit: Please place referral and call pt at [phone] documented in this encounter Plan of Treatment Upcoming Encounters Date Type Department Care Team (Late st Contact Info) Description 03/01/2024 8:00 AM EDT Office Visit Interventional Pain Center, [facility] [address] [place] [address] Osiel Ramires DO [address] [place] [address] 03/10/2024 2:40 PM EDT Office Visit Family Practice [facility] [address] [place] [address] Flaco Manzano CRNP [address] [place] [address] 03/30/2024 11:30 AM EDT Office Visit Gastroenterology, [facility] [address] [place] [address] Shanon Martell CRNP [address] [place] [address] 05/21/2024 8:20 AM EDT Office Visit Family [facility] [address] [place] [address] Sukhwinder Littlejohn MD [address] [place] [address] Scheduled Referrals Name Type Priority Associated Diagnoses Orde r Schedule PAIN MEDICINE REFERRAL OP Referral Within 10 days (routine) Lumbar degenerative disc disease Ordered: 02/18/2024 Health Maintenance Due Date Last Done Comments [...] Not on filedocumented as of this encounter Visit Diagnoses Diagnosis Lumbar degenerative disc disease- Primary Degeneration of lumbar or lumbosacral intervertebral disc documented in this encounter Advance Directives * Full Code (Latest Code Status on File) Date Activated Date Inactivated Comments 10/07/2023 8:13 AM 10/07/2023 2:40 PM This order r eflects the patients wishes and were consensually agreed upon. Question Answer Comments Discussion of Advance Direct amie occurred with: Not Discussed due to patient's condition Care Teams Eyelet Punch Operator Relationship Specialty Start Date End Date Sukhwinder Littlejohn MD [address] [place] [address] PCP - General Family Medicine 10/09/18 documented as of this encounter
[2024-02-19] MEDS: DOXYCYCLINE HYCLATE 100 MG in DEXTROSE 5% MINI-B 100 ML IV SCH (15:11)
--- NOTE | 2024-02-19 16:32 | Hospitalist Progress Note ---
Date of Service February 19, 2024 Assessment & Plan (1) Shortness of breath: Plan: Acute on chronic COPD exacerbation Chronic respiratory failure with hypoxia--uses 2 L supplemental oxygen at bedtime --Prior history of smoking --CTA:No acute pulmonary embolism. Mild centrilobular emphysema. -- Serology negative for COVID, influenza, RSV Continue steroids, doxycycline Continue home inhalers Nebs as needed Pulmonary hygiene Appreciate pulmonology input Titrate oxygen to keep sats 88 to 92% Aspiration precautions Hypertension Continue losartan Monitor GERD continue PPI Mood disorder Continue home medications Steroid-induced hyperglycemia HbA1c 6.0 DVT Px: Lovenox SQ Code Status Full code Admission and Anticipated Discharge Date Admission Date: February 18, 2024 Subjective Patient is seen and examined at bedside Denies any significant cough today Dyspnea, chest tightness slightly better Offers no other complaints Saturating well on room air Review of Systems Review of Systems: All systems reviewed & are unremarkable except as noted in Subjective Physical Exam Physical Exam: Physical Exam: Vitals signs as noted above General Appearance:Moderately built and nourished, no apparent distress Head: normocephalic, Atraumatic Eyes: normal inspection, EOMI Neck: supple, Trachea midline Respiratory/Chest: Decreased breath sounds, CTA, No accessory muscle use Cardiovascular: S1, S2, No murmur Abdomen/GI:Soft, Non tender, Bowel sounds present Extremities/Musculoskeletal:normal inspection, no edema Neurologic/Psych:AAOX3, grossly no focal neurological deficits Skin: normal color, warm Results & Data Results & Data Vital Signs (Past 12 Hours) Vital Signs Temp Pulse Pulse Resp BP Pulse Ox O2 Del Method 02/19/24 15:47 71 18 92 Room Air 02/19/24 14:57 77 02/19/24 13:28 36.6 C 77 16 147/81 H 93 Room Air 02/19/24 12:39 80 126/74 91 Room Air 02/19/24 11:22 67 18 92 Room Air 02/19/24 09:02 Nasal Cannula 02/19/24 08:22 69 20 113/63 97 Nasal Cannula 02/19/24 07:03 68 O2 Flow Rate 02/19/24 15:47 02/19/24 14:57 02/19/24 13:28 02/19/24 12:39 02/19/24 11:22 02/19/24 09:02 02/19/24 08:22 1 02/19/24 07:03 Laboratory Results Short CBC 02/18/24 02/19/24 Range/Units 16:06 05:54 WBC 6.20 4.79 L (4.8-10.8) K/ul Hgb 13.1 11.8 L (12.0-16.0) g/dl Hct 38.2 35.2 L (37.0-47.0) % Plt Count 315 301 (130-400) K/uL BMP 02/18/24 02/19/24 16:06 05:54 Sodium 135 L 140 Potassium 4.1 4.0 Chloride 101 106 Carbon Dioxide 28 28 BUN 13 11 Creatinine 0.68 0.55 L Glucose 109 H 113 H Calcium 9.9 8.8 Liver Function 02/18/24 Range/Units 16:06 Total Bilirubin 0.5 (0.2-1.0) mg/dl AST 32 (13-39) U/L ALT 70 H (7-52) U/L Alkaline Phosphatase 93 (34-104) U/L Albumin 4.4 (3.4-5.0) gm/dl
--- NOTE | 2024-02-19 21:28 | Communication Note ---
Date of Service: February 19, 2024 Patient with GI upset symptoms on IV doxycycline Rx as per RN. Hold doxycycline for now.
[2024-02-19] MEDS: methylPREDNISolone 40 MG in SYRINGE 0 ML IV SCH (21:41)
[2024-02-19] MEDS: FAMOTIDINE 10 MG TABLET PO PRN (21:42)
[2024-02-20 06:24] LABS: Hematocrit (blood only) 35.9 % (37.0-47.0); Hemoglobin 12.2 g/dl (12.0-16.0); Mean Corpuscular Hemoglobin 32.4 pg (25.0-34.0); Mean Corpuscular Volume 95.5 fL (80.0-100.0); Mean Platelet Volume 9.2 fL (9.4-12.4); Platelet Count 301 K/uL (130-400); RDW Coefficient of Variation 13.4 % (11.5-14.5); RDW Standard Deviation 47.3 fL (36.4-46.3); Red Blood Count 3.76 M/uL (4.20-5.40); White Blood Count 6.33 K/ul (4.8-10.8)
[2024-02-20 06:44] LABS: BUN Creatinine Ratio 28.6 (10-20); Creatinine Clr Calc Pharmacy 77.6 ml/min; Est GFR (African American) 103.9 ml/min; Est GFR (Non-African American) 89.6 ml/min; Magnesium 2.1 mg/dl (1.7-2.4); Potassium 4.4 mmol/L (3.5-5.1)
[2024-02-20] MEDS: DOCUSATE SODIUM 100 MG CAP PO SCH (10:03)
--- NOTE | 2024-02-20 11:48 | Pulmonology Progress Note ---
Date of Service February 20, 2024 Assessment & Plan (1) Hypoxia: (2) COPD with emphysema: (3) Acute exacerbation of chronic obstructive pulmonary disease: (4) Chronic bronchitis: Plan CTA chest 02/18/2024 personally reviewed: Severe centrilobular emphysema appreciated bilaterally especially in the upper lobes Linear atelectasis of the right lower lobe Mild elevation of the right hemidiaphragm No significant mediastinal lymphadenopathy -- Acute exacerbation of COPD with emphysema and chronic bronchitis Gold E Alpha-1 level and phenotype within normal limit 07/14/2023 RSV, influenza A/B and COVID-19 negative negative 02/18/2024 Currently on Breo 200 and Incruse on a daily basis along with as needed albuterol QTc 413 02/18/2024, continue with azithromycin 250 mg Hqgenc-Bvfezvxsz-Uguhbu on discharge Patient has been using Mucinex and flutter valve and hypertonic saline nebulized for chronic bronchitis AEC 60 on 03/02/2023 PFT 04/01/2023 personally reviewed: Severe obstructive lung dysfunction, insignificant bronchodilator response, air trapping, moderate decrease in DLCO FVC 1.97 L 69%, FEV1 0.9 L 42%, FEV1/FVC 47%, ERV 15%, RV 178%, TLC 111%, RV/TLC 159%, DLCO 45%, DLCO/VA 79% --Ex-smoker Approximately 52-vtad-pilw smoking history Quit in 2011 Encouraged to continue abstinence from smoking Next screening CAT scan will be February 2025 -- Chronic sinus headache with nasal congestion Continue with azelastine-fluticasone nasal spray on a daily basis and add xnkb-aag-ahipwrs antihistamine to it --Plan: DC Solu-Medrol and start prednisone 40 mg for 3 days then 20 mg for 2 days as of tomorrow Patient has issues with doxycycline when she takes p.o. She refers to as nausea. She was able to tolerate doxycycline IV without any issues. Will give another dose if she still has the issues and we will stop it and rather give her azithromycin for 5 days Change pantoprazole to 40 mg twice daily Pepcid has already been added by primary team Case was discussed with RN at bedside Please note the above document was generated using voice recognition software. It may contain grammatical, syntax or spelling errors.Any formal questions or concerns about the content, text or information contained within the body of this dictation should be directly addressed to the provider for clarification. Admission and Anticipated Discharge Date Admission Date: February 18, 2024 Subjective Patient seen and examined at bedside. No acute distress, no adverse events overnight Patient daughter was in the room at the time of examination She states she is doing better when it comes to her breathing, she was saturating 93-94% on room air She has been complaining of epigastric heaviness. It is even reproducible on palpation It was present even the day of presentation Coughing up clear phlegm No hemoptysis Fair appetite Review of Systems 2 Review of Systems: All systems reviewed & are unremarkable except as noted in Subjective Physical Exam 2 Physical Exam: Constitutional: No acute distress HEENT: EOMI, PERRLA Respiratory system: Decreased air entry bilaterally, no wheeze, no rhonchi, no crackles CVS: S1-S2 positive, no murmurs or gallops Abdomen: Soft, nondistended, positive bowel sounds x4, positive epigastric tenderness, no rebound Extremities: +2 pulses bilaterally radialis/ dorsalis pedis, no cyanosis, no edema Neuro: Awake alert oriented x3 Psych: Normal mood and affect G/U: No Ifore Skin: no rashes, warm and dry Lymphatic: no cervical or axillary lymphadenopathy Results & Data Results & Data Vital Signs (Past 12 Hours) Vital Signs Temp Pulse Pulse Resp BP Pulse Ox O2 Del Method 02/20/24 11:22 73 16 95 Room Air 02/20/24 08:09 36.6 C 71 16 129/74 94 Nasal Cannula 02/20/24 07:27 78 16 96 Nasal Cannula 02/20/24 07:21 68 02/20/24 03:50 66 18 95 Nasal Cannula 02/20/24 03:20 36.6 C 71 20 120/76 97 Room Air 02/20/24 00:38 Room Air, Nasal Cannula 02/20/24 00:23 71 18 95 Nasal Cannula O2 Flow Rate 02/20/24 11:22 02/20/24 08:09 1 02/20/24 07:27 2 02/20/24 07:21 02/20/24 03:50 2 02/20/24 03:20 02/20/24 00:38 1 02/20/24 00:23 2 Laboratory Results 02/20/24 05:35 02/20/24 05:35 PG Care Time/CCT Total # of Minutes Spent Total Time Spent with Patient: Total time spent is greater than 50% in coordination of care (as documented) at patient's floor/unit and/or counseling patient: Coding Level of Care Code 75016 SUB INP/OBS CARE 2/35MIN Diagnoses Hypoxia R09.02 COPD with emphysema J43.9 Acute exacerbation of chronic obstructive pulmonary disease J44.1 Chronic bronchitis J42
[2024-02-20] MEDS: FAMOTIDINE 20MG IV PUSH 20 MG/5 ML SYR IV SCH (12:12)
[2024-02-20] MEDS: PANTOprazole 40 MG in SYRINGE 0 ML IV SCH (14:11)
--- NOTE | 2024-02-20 15:44 | Hospitalist Progress Note ---
Date of Service February 20, 2024 Assessment & Plan (1) Shortness of breath: Plan: Acute on chronic COPD exacerbation Chronic respiratory failure with hypoxia--uses 2 L supplemental oxygen at bedtime --Prior history of smoking --CTA:No acute pulmonary embolism. Mild centrilobular emphysema. -- Serology negative for COVID, influenza, RSV Continue steroids, doxycycline Continue home inhalers Nebs as needed Pulmonary hygiene Appreciate pulmonology input Titrate oxygen to keep sats 88 to 92% Aspiration precautions IV Solu-Medrol transition to prednisone tomorrow If intolerant to IV doxycycline, will transition to azithromycin Hypertension Continue losartan Monitor GERD continue PPI Increased Protonix to 40 mg. Also added Pepcid given persistent symptoms Mood disorder Continue home medications Steroid-induced hyperglycemia HbA1c 6.0 DVT Px: Lovenox SQ Code Status Full code Admission and Anticipated Discharge Date Admission Date: February 20, 2024 Subjective Patient is seen and examined at bedside Dyspnea improving Still has some cough with expectoration States feeling dizzy with ambulation this morning Complains to have some upper abdominal discomfort No other complaints Review of Systems Review of Systems: All systems reviewed & are unremarkable except as noted in Subjective Physical Exam Physical Exam: Physical Exam: Vitals signs as noted above General Appearance:Moderately built and nourished, no apparent distress Head: normocephalic, Atraumatic Eyes: normal inspection, EOMI Neck: supple, Trachea midline Respiratory/Chest: Decreased breath sounds, CTA, No accessory muscle use Cardiovascular: S1, S2, No murmur Abdomen/GI:Soft, Non tender, Bowel sounds present Extremities/Musculoskeletal:normal inspection, no edema Neurologic/Psych:AAOX3, grossly no focal neurological deficits Skin: normal color, warm Results & Data Results & Data Vital Signs (Past 12 Hours) Vital Signs Temp Pulse Pulse Resp BP Pulse Ox O2 Del Method 02/20/24 15:25 77 16 95 Room Air 02/20/24 15:00 82 02/20/24 12:06 36.5 C 76 16 146/83 H 94 Room Air 02/20/24 11:22 73 16 95 Room Air 02/20/24 08:09 36.6 C 71 16 129/74 94 Nasal Cannula 02/20/24 08:00 Room Air 02/20/24 07:27 78 16 96 Nasal Cannula 02/20/24 07:21 68 02/20/24 03:50 66 18 95 Nasal Cannula O2 Flow Rate 02/20/24 15:25 02/20/24 15:00 02/20/24 12:06 02/20/24 11:22 02/20/24 08:09 1 02/20/24 08:00 02/20/24 07:27 2 02/20/24 07:21 02/20/24 03:50 2 Laboratory Results Short CBC 02/20/24 Range/Units 05:35 WBC 6.33 (4.8-10.8) K/ul Hgb 12.2 (12.0-16.0) g/dl Hct 35.9 L (37.0-47.0) % Plt Count 301 (130-400) K/uL BMP 02/20/24 05:35 Sodium 139 Potassium 4.4 Chloride 106 Carbon Dioxide 27 BUN 18 Creatinine 0.63 Glucose 160 H Calcium 9.0
[2024-02-20] MEDS: POLYETHYLENE (MIRALAX) 17 GM PACK PO PRN (20:37)
[2024-02-21 05:45] LABS: BUN Creatinine Ratio 25.9 (10-20); Calcium 8.5 mg/dl (8.6-10.3); Creatinine Clr Calc Pharmacy 60.3 ml/min; Est GFR (African American) 84.1 ml/min; Est GFR (Non-African American) 72.6 ml/min; Potassium 3.7 mmol/L (3.5-5.1)
[2024-02-21] MEDS ORDERED: ALBUT/IPRATROP 3MG/0.5MG NEB 3 ML VIAL NEB SCH (09:00)
[2024-02-21] MEDS: predniSONE 20 MG TAB PO SCH (09:22)
--- NOTE | 2024-02-21 10:02 | Pulmonology Progress Note ---
Date of Service February 21, 2024 Assessment & Plan (1) Hypoxia: (2) COPD with emphysema: (3) Acute exacerbation of chronic obstructive pulmonary disease: (4) Chronic bronchitis: Plan CTA chest 02/18/2024 personally reviewed: Severe centrilobular emphysema appreciated bilaterally especially in the upper lobes Linear atelectasis of the right lower lobe Mild elevation of the right hemidiaphragm No significant mediastinal lymphadenopathy -- Acute exacerbation of COPD with emphysema and chronic bronchitis Gold E Alpha-1 level and phenotype within normal limit 07/14/2023 RSV, influenza A/B and COVID-19 negative negative 02/18/2024 Currently on Breo 200 and Incruse on a daily basis along with as needed albuterol QTc 413 02/18/2024, continue with azithromycin 250 mg Mzokvu-Zzmkboaul-Rzkkzs on discharge Patient has been using Mucinex and flutter valve and hypertonic saline nebulized for chronic bronchitis AEC 60 on 03/02/2023 PFT 04/01/2023 personally reviewed: Severe obstructive lung dysfunction, insignificant bronchodilator response, air trapping, moderate decrease in DLCO FVC 1.97 L 69%, FEV1 0.9 L 42%, FEV1/FVC 47%, ERV 15%, RV 178%, TLC 111%, RV/TLC 159%, DLCO 45%, DLCO/VA 79% --Ex-smoker Approximately [id number] smoking history Quit in 2011 Encouraged to continue abstinence from smoking Next screening CAT scan will be February 2025 -- Chronic sinus headache with nasal congestion Continue with azelastine-fluticasone nasal spray on a daily basis and add [id number] antihistamine to it --Plan: Continue prednisone 40 mg for 3 days then 20 mg for 2 days DC doxycycline, resume azithromycin Pkwhxq-Dktipzthm-Pqnala on discharge after the course of clotrimazole is done Case was discussed with RN at bedside No further recommendation from pulmonary perspective, will sign off Please call directly with any questions Please note the above document was generated using voice recognition software. It may contain grammatical, syntax or spelling errors.Any formal questions or concerns about the content, text or information contained within the body of this dictation should be directly addressed to the provider for clarification. Admission and Anticipated Discharge Date Admission Date: February 20, 2024 Subjective Patient seen and examined at bedside. No acute distress, no AutoSense overnight She is feeling better when it comes to her breathing Shortness of breath is significantly improved. Occasional cough with clear phlegm. Denies any hemoptysis Fair appetite Still complaining of some epigastric discomfort. No nausea vomiting Has phlebitis on the right arm. Review of Systems 2 Review of Systems: All systems reviewed & are unremarkable except as noted in Subjective Physical Exam 2 Physical Exam: Constitutional: No acute distress HEENT: EOMI, PERRLA Respiratory system: Decreased air entry bilaterally, no wheeze, no rhonchi, no crackles CVS: S1-S2 positive, no murmurs or gallops Abdomen: Soft, nondistended, positive bowel sounds x4, positive epigastric tenderness, no rebound Extremities: +2 pulses bilaterally radialis/ dorsalis pedis, no cyanosis, no edema, right forearm phlebitis Neuro: Awake alert oriented x3 Psych: Normal mood and affect G/U: No Fiore Skin: no rashes, warm and dry Lymphatic: no cervical or axillary lymphadenopathy Results & Data Results & Data Vital Signs (Past 12 Hours) Vital Signs Temp Pulse Pulse Resp BP Pulse Ox O2 Del Method 02/21/24 08:06 36.8 C 78 18 121/71 93 Room Air 02/21/24 07:23 78 18 97 Room Air 02/21/24 02:39 36.7 C 72 16 110/71 96 Nasal Cannula 02/20/24 23:41 Room Air, Nasal Cannula 02/20/24 23:39 72 02/20/24 22:43 36.7 C 75 18 110/65 94 Nasal Cannula O2 Flow Rate 02/21/24 08:06 02/21/24 07:23 02/21/24 02:39 1 02/20/24 23:41 1 02/20/24 23:39 02/20/24 22:43 1 Laboratory Results 02/20/24 05:35 02/21/24 04:42 PG Care Time/CCT Total # of Minutes Spent Total Time Spent with Patient: Total time spent is greater than 50% in coordination of care (as documented) at patient's floor/unit and/or counseling patient: Coding Level of Care Code 95312 SUB INP/OBS CARE 2/35MIN Diagnoses Hypoxia R09.02 COPD with emphysema J43.9 Acute exacerbation of chronic obstructive pulmonary disease J44.1 Chronic bronchitis J42
[2024-02-21] MEDS: FAMOTIDINE 10 MG TABLET PO SCH (10:23)
[2024-02-21] MEDS: ALBUT/IPRATROP 3MG/0.5MG NEB 3 ML VIAL NEB SCH (11:03)
[2024-02-21] MEDS: CLOTRIMAZOLE 10 MG TROCHE BUCCAL SCH (12:42)
--- NOTE | 2024-02-21 13:32 | CT Scan Report ---
ABDOMEN AND PELVIS CT WITHOUT CONTRAST CT DOSE: 1129.75 mGy.cm HISTORY: Generalized abdominal pain. TECHNIQUE: Multiaxial CT images of the abdomen and pelvis were performed without contrast. A dose lo wering technique was utilized adhering to the principles of ALARA. COMPARISON STUDY: Abdomen and pelvis CT 01/27/2024. FINDINGS: Emphysema again noted at the lung bases. No pneumoperitoneum. No pneumatosis. No acute frac tures. Prior cholecystectomy. The unenhanced liver, spleen, adrenal glands, and pancreas are within n ormal limits. 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 Normal caliber abdominal aorta with mild calcified plaque. No retroperitoneal adenopathy. There is moderate bilateral perinephric edema again noted. This is similar to the prior study. Adjace nt nephrolithiasis. No ureteral stones. No hydronephrosis. No pelvic lymphadenopathy or pelvic free f luid. The bladder, uterus, left ovary are unremarkable. There is a stable 1.5 cm right ovarian cyst. Suboptimal evaluation for bowel pathology due to the lack of intravenous and oral contrast. However, there is no definite bowel wall thickening or obstruction. The appendix is not identified. No inflamm atory changes at the cecal base. IMPRESSION: 1. No bowel wall thickening or obstruction. 2. Stable right-sided nephrolithiasis. No ureteral stones. No hydronephrosis. 3. Moderate bilateral perinephric edema, unchanged. This may be chronic. 4. Prior cholecystectomy. ACT 112: Negative or not required by law. Electronically signed by: Nish Quinonez M.D. 02/21/2024 1:29 PM
--- NOTE | 2024-02-21 15:16 | Hospitalist Progress Note ---
Date of Service February 21, 2024 Assessment & Plan (1) Shortness of breath: Plan: Acute on chronic COPD exacerbation Chronic respiratory failure with hypoxia--uses 2 L supplemental oxygen at bedtime --Prior history of smoking --CTA:No acute pulmonary embolism. Mild centrilobular emphysema. -- Serology negative for COVID, influenza, RSV Continue steroids, doxycycline Continue home inhalers Nebs as needed Pulmonary hygiene Appreciate pulmonology input Saturating well on room air Aspiration precautions IV Solu-Medrol transition to prednisone IV doxycycline discontinued due to intolerance Resume home azithromycin Thursday on discharge Likely discharge home in 1 to 2 days Oral thrush Started on clotrimazole Abdominal pain Likely due to GERD CT abdomen showed no acute findings Patient prefers to follow-up with Dr. Martinez on discharge as outpatient Continue PPI Hypertension Continue losartan Monitor GERD continue PPI Increased Protonix to 40 mg. Also added Pepcid given persistent symptoms Mood disorder Continue home medications Steroid-induced hyperglycemia HbA1c 6.0 DVT Px: Lovenox SQ Code Status Full code Admission and Anticipated Discharge Date Admission Date: February 20, 2024 Subjective Patient seen and examined at bedside. Breathing better subjectively today States having abdominal pain Also reports oral thrush Denies any cough today Ambulating in hallway Review of Systems Review of Systems: All systems reviewed & are unremarkable except as noted in Subjective Physical Exam Physical Exam: Physical Exam: Vitals signs as noted above General Appearance:Moderately built and nourished, no apparent distress Head: normocephalic, Atraumatic Eyes: normal inspection, EOMI Neck: supple, Trachea midline Respiratory/Chest: Decreased breath sounds, CTA, No accessory muscle use Cardiovascular: S1, S2, No murmur Abdomen/GI:Soft, Non tender, Bowel sounds present Extremities/Musculoskeletal:normal inspection, no edema Neurologic/Psych:AAOX3, grossly no focal neurological deficits Skin: normal color, warm Results & Data Results & Data Vital Signs (Past 12 Hours) Vital Signs Temp Pulse Pulse Resp BP Pulse Ox O2 Del Method 02/21/24 14:46 36.3 C L 75 18 131/80 97 Room Air 02/21/24 13:51 79 02/21/24 11:05 77 18 98 Room Air 02/21/24 11:00 36.5 C 71 18 132/81 99 Room Air 02/21/24 10:36 Room Air, Nasal Cannula 02/21/24 08:06 36.8 C 78 18 121/71 93 Room Air 02/21/24 08:00 79 02/21/24 07:23 78 18 97 Room Air O2 Flow Rate 02/21/24 14:46 02/21/24 13:51 02/21/24 11:05 02/21/24 11:00 02/21/24 10:36 1 02/21/24 08:06 02/21/24 08:00 02/21/24 07:23 Laboratory Results [facility] 02/21/24 04:42 Sodium 137 Potassium 3.7 Chloride 104 Carbon Dioxide 26 BUN 21 Creatinine 0.81 Glucose 110 H Calcium 8.5 L
[2024-02-21] MEDS: ALUMINUM/MAGNESIUM/SIMETH (MAALOX MAX) 30 ML UDC PO PRN (20:18)
[2024-02-22 07:33] LABS: Hematocrit (blood only) 35.2 % (37.0-47.0); Hemoglobin 11.9 g/dl (12.0-16.0); Mean Corpuscular Hemoglobin 32.4 pg (25.0-34.0); Mean Corpuscular Hgb Conc 33.8 g/dL (32.0-36.0); Mean Corpuscular Volume 95.9 fL (80.0-100.0); Mean Platelet Volume 8.7 fL (9.4-12.4); Platelet Count 296 K/uL (130-400); RDW Coefficient of Variation 13.2 % (11.5-14.5); Red Blood Count 3.67 M/uL (4.20-5.40); White Blood Count 6.11 K/ul (4.8-10.8)
[2024-02-22 07:42] LABS: BUN Creatinine Ratio 21.3 (10-20); Calcium 8.9 mg/dl (8.6-10.3); Creatinine Clr Calc Pharmacy 64.5 ml/min; Est GFR (African American) 92.3 ml/min; Est GFR (Non-African American) 79.6 ml/min; Potassium 3.7 mmol/L (3.5-5.1)
--- NOTE | 2024-02-22 12:25 | Hospitalist Progress Note ---
Date of Service February 22, 2024 Assessment & Plan (1) Shortness of breath: Plan: Acute on chronic COPD exacerbation Chronic respiratory failure with hypoxia--uses 2 L supplemental oxygen at bedtime --Prior history of smoking --CTA:No acute pulmonary embolism. Mild centrilobular emphysema. -- Serology negative for COVID, influenza, RSV Continue steroids, doxycycline Continue home inhalers Nebs as needed Pulmonary hygiene Appreciate pulmonology input Saturating well on room air Aspiration precautions IV Solu-Medrol transition to prednisone--40 mg daily for 3 days, then 20 mg daily for 2 days and stop IV doxycycline discontinued due to intolerance Resume home azithromycin Thursday on discharge after completion of clotrimazole course Plan to discharge home today Oral thrush Continue clotrimazole Abdominal pain Likely due to GERD CT abdomen showed no acute findings Patient prefers to follow-up with Dr. Martinez on discharge as outpatient Continue PPI Advised to follow-up with GI as outpatient Hypertension Continue losartan Monitor GERD continue PPI Increased Protonix to 40 mg. Also added Pepcid given persistent symptoms Mood disorder Continue home medications Steroid-induced hyperglycemia HbA1c 6.0 DVT Px: Lovenox SQ Code Status Full code Disposition Home Admission and Anticipated Discharge Date Admission Date: February 20, 2024 Subjective Patient seen and examined at bedside. Reports chronic intermittent dizziness Feels well today No dyspnea, cough, chest pain today Abdominal pain much improved No other complaints Plan to be discharged home today Review of Systems Review of Systems: All systems reviewed & are unremarkable except as noted in Subjective Physical Exam Physical Exam: Physical Exam: Vitals signs as noted above General Appearance:Moderately built and nourished, no apparent distress Head: normocephalic, Atraumatic Eyes: normal inspection, EOMI Neck: supple, Trachea midline Respiratory/Chest: Decreased breath sounds, CTA, No accessory muscle use Cardiovascular: S1, S2, No murmur Abdomen/GI:Soft, Non tender, Bowel sounds present Extremities/Musculoskeletal:normal inspection, no edema Neurologic/Psych:AAOX3, grossly no focal neurological deficits Skin: normal color, warm Results & Data Results & Data Vital Signs (Past 12 Hours) Vital Signs Temp Pulse Pulse Resp BP Pulse Ox O2 Del Method 02/22/24 11:22 74 18 97 Room Air 02/22/24 10:42 36.3 C L 66 16 132/87 97 Room Air 02/22/24 07:38 36.5 C 66 18 125/81 92 Room Air 02/22/24 07:30 Room Air 02/22/24 07:09 70 16 95 Room Air 02/22/24 07:00 60 02/22/24 01:59 73 02/22/24 00:55 Room Air, Nasal Cannula O2 Flow Rate 02/22/24 11:22 02/22/24 10:42 02/22/24 07:38 02/22/24 07:30 02/22/24 07:09 02/22/24 07:00 02/22/24 01:59 02/22/24 00:55 1 Laboratory Results Short CBC 02/22/24 Range/Units 07:04 WBC 6.11 (4.8-10.8) K/ul Hgb 11.9 L (12.0-16.0) g/dl Hct 35.2 L (37.0-47.0) % Plt Count 296 (130-400) K/uL BMP 02/22/24 07:04 Sodium 140 Potassium 3.7 Chloride 105 Carbon Dioxide 31 BUN 16 Creatinine 0.75 Glucose 98 Calcium 8.9
--- NOTE | 2024-02-22 12:35 | Discharge Summary ---
Date of Service February 22, 2024 Admission HPI Per Admitting Provider History obtained from patient and records. Medical history significant for COPD on chronic azithromycin Rx, nocturnal hypoxemia as per records, hypertension, GERD, hiatal hernia, hypogammaglobulinemia as per records, anxiety/mood disorder, fibromyalgia, past history of C. difficile, past tobacco abuse. Last confinement May 2022 for COPD exacerbation. 1 week history of dry cough symptoms associated with shortness of breath. Not sure about sick contacts. No response to outpatient prednisone course prescribed by her photographic equipment assembler. Patient with chest and subcostal tightness going to the back. No improvement with home inhalers. Solu-Medrol and neb treatment administered at the ER. Medical History as above Surgical History : Lipectomy/abdominoplasty, cataract surgery, cholecystectomy, knee cyst removal, reduction mammoplasty, right vitrectomy Family History : Cerebral aneurysm, depression, cirrhosis, heart disease, asthma Personal/Social history : Past tobacco abuse, no EtOH intake, retired [employer] work Admission Exam Per Admitting Provider GENERAL: Comfortable, anxious, looks younger than stated age, no respiratory distress SKIN: Normal color, warm HEENT: [place] palpebral conjunctivae, no ptosis, moist buccal mucosa, nasal cannula in place NECK : Supple, no tenderness CHEST : Decreased breath sounds, no tenderness HEART : RRR, no obvious murmurs ABDOMEN: Some distention, nontender EXTREMITIES : No LE swelling/tenderness, no other conspicuous deformities noted NEUROLOGIC : Coherent, no facial asymmetry, no other gross focality Principal Diagnosis Acute on chronic COPD exacerbation Oral thrush GERD Discharge Data Allergies Allergy/AdvReac Type Severity Reaction Status Date / Time ciprofloxacin AdvReac Intermediate NAUSEA/VOMI Verified 02/15/24 10:52 TING montelukast AdvReac Intermediate Anxiety Verified 02/15/24 10:52 doxycycline AdvReac Mild GI Issues Verified 02/19/24 21:28 amlodipine AdvReac edema Verified 02/18/24 21:21 Consultations 02/18/24 20:45 ED Decision to Admit Stat 02/19/24 01:42 Consult Pulmonology Routine Procedures Performed Laboratory Results WBC 6.11 K/ul (4.8-10.8) 02/22/24 07:04 RBC 3.67 M/uL (4.20-5.40) L 02/22/24 07:04 Hgb 11.9 g/dl (12.0-16.0) L 02/22/24 07:04 Hct 35.2 % (37.0-47.0) L 02/22/24 07:04 MCV 95.9 fL (80.0-100.0) 02/22/24 07:04 MCH 32.4 pg (25.0-34.0) 02/22/24 07:04 MCHC 33.8 g/dL (32.0-36.0) 02/22/24 07:04 RDW Std Deviation 46.0 fL (36.4-46.3) 02/22/24 07:04 RDW Coeff of Nubia 13.2 % (11.5-14.5) 02/22/24 07:04 Plt Count 296 K/uL (130-400) 02/22/24 07:04 MPV 8.7 fL (9.4-12.4) L 02/22/24 07:04 Immature Gran % (Auto) 0.2 % 02/19/24 05:54 Neut % (Auto) 84.9 % 02/19/24 05:54 Lymph % (Auto) 8.6 % 02/19/24 05:54 Phillips % (Auto) 6.3 % 02/19/24 05:54 Eos % (Auto) 0.0 % 02/19/24 05:54 Baso % (Auto) 0.0 % 02/19/24 05:54 Neut # (Auto) 4.07 K/uL (1.40-6.50) 02/19/24 05:54 Lymph # (Auto) 0.41 K/uL (1.20-3.40) L 02/19/24 05:54 Phillips # (Auto) 0.30 K/uL (0.11-0.59) 02/19/24 05:54 Eos # (Auto) 0.00 K/uL (0.00-0.50) 02/19/24 05:54 Baso # (Auto) 0.00 K/uL (0.00-0.20) 02/19/24 05:54 Immature Gran # (Auto) 0.01 K/uL (0.01-0.20) 02/19/24 05:54 PT 10.3 Seconds (9.0-12.0) 02/18/24 16:06 INR 0.9 (0.9-1.1) 02/18/24 16:06 APTT 23 Seconds (21-31) 02/18/24 16:06 PTT Ratio 0.9 02/18/24 16:06 VBG pH 7.42 (7.36-7.41) H 02/18/24 21:30 VBG pCO2 45 mmHg (38-50) 02/18/24 21:30 VBG pO2 43 mmHg 02/18/24 21:30 VBG HCO3 29 mmol/L 02/18/24 21:30 VBG O2 Saturation 75.2 % 02/18/24 21:30 VBG Base Excess 4.0 mEq/L 02/18/24 21:30 Sodium 140 mmol/L (136-145) 02/22/24 07:04 Potassium 3.7 mmol/L (3.5-5.1) 02/22/24 07:04 Chloride 105 mmol/L (98-107) 02/22/24 07:04 Carbon Dioxide 31 mmol/L (21-32) 02/22/24 07:04 Anion Gap 4 (3-11) 02/22/24 07:04 BUN 16 mg/dl (6-23) 02/22/24 07:04 Creatinine 0.75 mg/dl (0.6-1.2) 02/22/24 07:04 Est Cr Clr Drug Dosing 64.5 ml/min 02/22/24 07:04 Est GFR ( Amer) 92.3 ml/min 02/22/24 07:04 Est GFR (Non-Af Amer) 79.6 ml/min 02/22/24 07:04 BUN/Creatinine Ratio 21.3 (10-20) H 02/22/24 07:04 Glucose 98 mg/dl (70-99(Fasting)) 02/22/24 07:04 Estimat Average Glucose 126 mg/dl 02/18/24 16:06 Hemoglobin A1c 6.0 % (4.5-5.6) H 02/18/24 16:06 Calcium 8.9 mg/dl (8.6-10.3) 02/22/24 07:04 Magnesium 2.1 mg/dl (1.7-2.4) 02/20/24 05:35 Total Bilirubin 0.5 mg/dl (0.2-1.0) 02/18/24 16:06 AST 32 U/L (13-39) 02/18/24 16:06 ALT 70 U/L (7-52) H 02/18/24 16:06 Alkaline Phosphatase 93 U/L (34-104) 02/18/24 16:06 Troponin I High Sens 2.5 pg/ml (0-14) 02/18/24 18:28 B-Natriuretic Peptide 80 pg/ml (0-100) 02/18/24 16:55 Total Protein 7.1 gm/dl (6.0-8.3) 02/18/24 16:06 Albumin 4.4 gm/dl (3.4-5.0) 02/18/24 16:06 Globulin 2.7 gm/dl (2.5-4.0) 02/18/24 16:06 Albumin/Globulin Ratio 1.6 (0.9-2) 02/18/24 16:06 SARS-CoV-2 (PCR) NEGATIVE (Negative) 02/18/24 16:45 Influenza Type A (PCR) Negative (Neg) 02/18/24 16:45 Influenza Type B (PCR) Negative (Neg) 02/18/24 16:45 RSV (RT-PCR) Negative (Neg) 02/18/24 16:45 Impressions Chest X-Ray 02/18/24 15:52 XR chest 1V not portable HISTORY: Chest pain, nonspecific COMPARISON: Chest 01/27/2024. FINDINGS: The lungs are clear. Cardiac silhouette is normal in size. No pleural effusions. No pneumothorax. Prior cholecystectomy. Calcifications within the aortic knob. IMPRESSION: No acute process. ACT 112: Negative or not required by law. Electronically signed by: Nish Quinonez M.D. 02/18/2024 5:26 PM Chest CTA 02/18/24 21:10 Exam(s): CTA CHEST IV Amt: 118 cc opti 320 EXAM: CT Angiography Chest With Intravenous Contrast CLINICAL HISTORY: Reason for exam: cp. TECHNIQUE: Axial computed tomographic angiography images of the chest with intravenous contrast. CTDI is 16.07 mGy and DLP is 522.82 mGy-cm. Automated exposure control was utilized for the study. A dose lowering technique was utilized adhering to the principles of ALARA. MIP reconstructed images were created and reviewed. COMPARISON: No relevant prior studies available. FINDINGS: Pulmonary arteries: Unremarkable. No acute pulmonary embolism. Aorta: Atherosclerotic changes of the aorta. No thoracic aortic aneurysm. Lungs: Mild centrilobular emphysema. Atelectasis at the lung bases. No mass. Pleural space: Unremarkable. No significant effusion. No pneumothorax. Heart: Unremarkable. No cardiomegaly. No significant pericardial effusion. No evidence of RV dysfunction. Bones/joints: Degenerative changes of the spine. No acute fracture. No dislocation. Soft tissues: Unremarkable. Lymph nodes: Unremarkable. No enlarged lymph nodes. Gallbladder and bile ducts: Cholecystectomy. IMPRESSION: 1. No acute pulmonary embolism. 2. Mild centrilobular emphysema. Electronically signed by: Orion Orellana MD 02/19/24 00:09 AM Abdomen/Pelvis CT 02/21/24 13:[address] WITHOUT CONTRAST CT DOSE: 1129.75 mGy.cm HISTORY: Generalized abdominal pain. TECHNIQUE: Multiaxial CT images of the abdomen and pelvis were performed without contrast. A dose lowering technique was utilized adhering to the principles of ALARA. COMPARISON STUDY: Abdomen and pelvis CT 01/27/2024. FINDINGS: Emphysema again noted at the lung bases. No pneumoperitoneum. No pneumatosis. No acute fractures. Prior cholecystectomy. The unenhanced liver, spleen, adrenal glands, and pancreas are within normal limits. 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 Normal caliber abdominal aorta with mild calcified plaque. No retroperitoneal adenopathy. There is moderate bilateral perinephric edema again noted. This is similar to the prior study. Adjacent nephrolithiasis. No ureteral stones. No hydronephrosis. No pelvic lymphadenopathy or pelvic free fluid. The bladder, uterus, left ovary are unremarkable. There is a stable 1.5 cm right ovarian cyst. Suboptimal evaluation for bowel pathology due to the lack of intravenous and oral contrast. However, there is no definite bowel wall thickening or obstruction. The appendix is not identified. No inflammatory changes at the cecal base. IMPRESSION: 1. No bowel wall thickening or obstruction. 2. Stable right-sided nephrolithiasis. No ureteral stones. No hydronephrosis. 3. Moderate bilateral perinephric edema, unchanged. This may be chronic. 4. Prior cholecystectomy. ACT 112: Negative or not required by law. Electronically signed by: Nish Quinonez M.D. 02/21/2024 1:29 PM Ordered Studies 02/18/24 21:10 CT angio chest PE protocol Stat 02/21/24 13:04 CT Abd and Pelvis [CT abd pelvis wo con] Urgent Hospital Course (1) Shortness of breath: Acute on chronic COPD exacerbation Chronic respiratory failure with hypoxia--uses 2 L supplemental oxygen at bedtime --Prior history of smoking --CTA:No acute pulmonary embolism. Mild centrilobular emphysema. -- Serology negative for COVID, influenza, RSV Continue steroids, doxycycline Continue home inhalers Nebs as needed Pulmonary hygiene Appreciate pulmonology input Saturating well on room air Aspiration precautions IV Solu-Medrol transition to prednisone--40 mg daily for 3 days, then 20 mg daily for 2 days and stop IV doxycycline discontinued due to intolerance Resume home azithromycin Thursday on discharge after completion of clotrimazole course Plan to discharge home today Oral thrush Continue clotrimazole Abdominal pain Likely due to GERD CT abdomen showed no acute findings Patient prefers to follow-up with Dr. Martinez on discharge as outpatient Continue PPI Advised to follow-up with GI as outpatient Hypertension Continue losartan Monitor GERD continue PPI Increased Protonix to 40 mg. Also added Pepcid given persistent symptoms Mood disorder Continue home medications Steroid-induced hyperglycemia HbA1c 6.0 DVT Px: Lovenox SQ Code Status Full code Disposition Home Total Time Total Time Spent Total Time Spent (In Minutes): 57 minutes Discharge Plan Discharge Items Patient Disposition: Home - Self-Care Reason For Visit: SOB Discharge Diagnosis: Acute on chronic COPD exacerbation Oral thrush GERD Activity: Per Instructions section Exercise/Sports: Gradually increase as tolerated Non-emergency contact: Primary Care Provider and Veneer Jointer Returner Call non-emergency contact if: you have any medication questions, your symptoms worsen, your pain is concerning for you and you have a fever Follow-up/Referrals: Sukhwinder Littlejohn MD [Primary Care Provider] - (Date & Time 02/29/2024 10:00 AM Provider Sukhwinder Littlejohn MD Department Family Practice [facility] ) Diet: Heart Healthy Addtl Attending Provider Instructions: Follow-up with your primary care physician on 02/29/2024 10:00 AM Follow-up with your supervisor sawmill Dr. Gaslightwala as recommended --Complete the antifungal course clotrimazole as prescribed for oral thrush. --Resume your azithromycin antibiotic after completion of clotrimazole course as recommended by your photographic equipment assembler. --Complete the prednisone course as prescribed. Prednisone tapering course Start taking prednisone 40 mg daily for 1 more day, then take 20 mg daily for 2 days and stop. --Your Protonix dose is increased to 20 mg twice a day. Discuss with your supervisor sawmill for further instructions. Seek immediate medical attention if your symptoms reoccur or worsen Please take all medications as instructed on discharge list below. Please call if you have any questions or problems. You can reach a [facility] hospitalist on duty at [facility] 24 hours a day by calling [phone] Pending Studies at Discharge: No Stand-Alone Forms: [facility] Play[employer], Smoking Cessation Medications and DC Order Prescriptions: New clotrimazole 10 mg Galina 10 mg buccal [id number] 9 Days Qty: 44 0RF famotidine [Acid Paleology Professor (famotidine)] 10 mg Tablet 10 mg PO BID PRN (Reason: Acid Reflux) Qty: 30 0RF prednisone 20 mg tablet 20 mg PO UD Qty: 4 0RF Rx Instructions: Start taking prednisone 40 mg daily for 1 more day, then take 20 mg daily for 2 days and stop. Continued Trelegy Ellipta 200-62.5-25 mcg blister with device 1 inh inhalation DAILY Qty: 3 2RF chlorpheniramine-dextromethorp 4-30 mg tablet 1 tab PO BID PRN (Reason: cough) Qty: 30 1RF Rx Instructions: Take 1 tab twice a day for 7 days and then as needed azelastine-fluticasone 137-50 mcg/spray spray,non-aerosol 1 spray INTRANASAL BID Qty: 23 3RF guaifenesin [Mucinex] 600 mg tablet extended release 12hr 600 mg PO AMHS cholecalciferol (vitamin D3) [Vitamin D3] 25 mcg (1,000 unit) Capsule 25 mcg PO QAM albuterol sulfate 2.5 mg /3 mL (0.083 %) solution for nebulization 2.5 mg inhalation Q4H PRN (Reason: Wheezing) Rx Instructions: use in place of rescue inhaler albuterol sulfate 90 mcg/actuation HFA aerosol inhaler 2 puff INHALATION Q4 PRN (Reason: cough,SOB,chest tightness) calcium carbonate-vitamin D3 [Calcium 600 + D(3)] 600 mg-10 mcg (400 unit) Tablet 1 tab PO QAM pyridoxine (vitamin B6) [Vitamin B-6] 100 mg Tablet 100 mg PO QAM duloxetine 60 mg capsule,delayed release(DR/EC) 60 mg PO QAM levocetirizine 5 mg tablet 5 mg PO HS losartan [Cozaar] 25 mg tablet 25 mg PO DAILY Trelegy Ellipta 200-62.5-25 mcg blister with device INHALATION Changed pantoprazole [Protonix] 20 mg tablet,delayed release (DR/EC) 20 mg PO BID Qty: 60 1RF Held azithromycin 250 mg tablet 250 mg PO [id number] Hold Instructions: Resume after completion of clotrimazole course Rx Instructions: THURSDAY,THURSDAY,FRIDAYS Discharge Orders: Discharge Order (Routine); Ordered 02/22/24 Ordered By: Good Stringer/Other Patient Handouts: Prediabetes, 5 Steps for Eating Healthier Admission Data Admit Date/Time: 02/20/24 14:23 Attending Provider: Good Fragoso Admit Provider: Dorian Ballard Primary Care Provider: Sukhwinder Littlejohn Other Providers: Dorian Ballard; Diego Parker; Madi Antonio; Fran Warren; Tomeka Breaux; Yanira Grove; Mary Kate Kelley; Ramon Gracia; Tono Corey; Francoise Eid
--- NOTE | 2024-02-23 10:58 | Electrocardiogram Report ---
Test Reason : Blood Pressure : / mmHG Vent. Rate : 072 BPM Atrial Rate : 072 BPM P-R Int : 130 ms QRS Dur : 092 ms QT Int : 374 ms P-R-T Axes : 053 043 054 degrees QTc Int : 409 ms Normal sinus rhythm Cannot rule out Septal infarct , age undetermined Abnormal ECG When compared with ECG of 18-FEB-2024 15:59, Septal infarct is now Present Confirmed by Elliott Lopez ([id number]) on 02/23/2024 10:57:45 AM Referred By: REFERRED SELF Confirmed By:Elliott Lopez
== END 2024-02-22 16:06 | disposition home or self-care (01) | DRG 191 ==
LOC: ED 15:43 → EDINP 15:43 → 2W 02-19 01:41